=== PATIENT | male | born 1960 | race Caucasian/White ===

== ENCOUNTER 2017-08-09 21:46 | Inpatient (IN) | payer MEDICAID, SELFPAY | END 2017-08-14 18:00 | disposition home or self-care (01) | DRG 809 | PROVIDERS: Admitting Provider Internal Medicine; Emergency Provider Emergency Medicine; Family Provider Family Medicine; PCP Family Medicine; Visit Provider Internal Medicine | DX: D70.9 Neutropenia, unspecified (principal); C78.6 Secondary malignant neoplasm of retroperitoneum and peritoneum; E22.2 Syndrome of inappropriate secretion of antidiuretic hormone; D69.59 Other secondary thrombocytopenia; D64.81 Anemia due to antineoplastic chemotherapy; C62.92 Malignant neoplasm of left testis, unspecified whether descended or undescended; G89.3 Neoplasm related pain (acute) (chronic); R50.81 Fever presenting with conditions classified elsewhere; T45.1X5A Adverse effect of antineoplastic and immunosuppressive drugs, initial encounter; K70.30 Alcoholic cirrhosis of liver without ascites; K59.00 Constipation, unspecified; B35.6 Tinea cruris; R21 Rash and other nonspecific skin eruption; B00.9 Herpesviral infection, unspecified | CPT/HCPCS: 36415; 36430; 36591; 71020; 71046; 80048; 80202; 81001; 83605; 85025; 86850; 86900; 86901; 86920; 86922; 87040; 87086; 87400; 96372; 99058; 99284; P9016; J0692; J2405; J3370; Q5101 ==

== ENCOUNTER → 2017-09-03 12:26 | Outpatient (CLI) | payer OTHER, MEDICAID, SELFPAY ==
[2017-08-26 11:22] VITALS: TEMP 36.4
--- NOTE | 2017-09-03 | DI.MRI.S_ITS ---
PROCEDURE: MR HEAD/BRAIN WO/W CON INDICATIONS: TESTICULAR CA TECHNIQUE: Noncontrast axial T1 spin echo, axial T2 fast spin echo, sagittal and axial FLAIR, coronal T2 fast spin echo, axial gradient echo, axial diffusion and ADC through the brain. After the administration of contrast, axial and coronal 3D VIBE or T1 spin echo with fat saturation through the brain. COMPARISON: [facility], CT, HEAD WITH CONTRAST, 03/31/2017, 14:50. FINDINGS: Image quality: Excellent. CSF Spaces: Basal cisterns are patent. No extra-axial fluid collections. Ventricles are normal in size and shape. Brain: No midline shift. No intracranial bleeds or masses. No abnormal intracranial enhancement. The brainstem appears normal. Diffusion-weighted images demonstrate no acute ischemic insults. No chronic ischemic insults. Normal intravascular flow voids are present. On the prior CT dated 03/31/17, there is a hyperdense focus seen embedded within the right orbital roof medially. On the current study, there is focal susceptibility artifact seen within this region, as on series 9 image 14. Skull and face: Calvarial marrow is normal in signal. Orbits appear normal. Sinuses: Susceptibility artifact can be seen along the posterior aspect of the right maxillary sinus, where there is postoperative metallic hardware seen on the prior CT. Sinuses and mastoids appear clear. IMPRESSION: No masses or abnormal enhancement can be seen. Metallic foreign bodies seen embedded along the right orbital roof medially, as well as along the posterior right maxillary sinus. Dictated by: Jason Badillo M.D. on 09/03/2017 at 13:56 Approved by: Jason Badillo M.D. on 09/03/2017 at 14:09
--- NOTE | 2017-09-03 12:44 | DI.CT.S_ITS ---
PROCEDURE: CT CHEST ABD PEL W CON INDICATIONS: TESTICULAR CANCER TECHNIQUE: After the administration of oral and intravenous contrast, 5 mm thick sections acquired from the lung apices to the symphysis. 5 mm coronal and sagittal reformats were performed, with additional 7 mm coronal MIP reformats through the lungs. For radiation dose reduction, the following was used: automated exposure control, adjustment of mA and/or kV according to patient size. COMPARISON: [facility], CT, CHEST/ABDOMEN WITH CONTRAST, 05/23/2017, 12:59. [facility], CT, CHEST/ABD/PEL WITH CONTRAST, 03/25/2017, 15:21. [facility], CT, CHEST/ABD/PEL WITH CONTRAST, 03/10/2017, 15:16. [facility], CT, CHEST/ABD/PEL WITH CONTRAST, 02/04/2016, 21:58. FINDINGS: Image quality: Excellent. CHEST: Lungs and pleura: No acute airspace opacities. There is nonspecific bilateral mild posterior linear scarring within the lung parenchyma. No pleural effusions or pneumothorax. Central and peripheral airways appear patent and normal in caliber. Mediastinum: Heart size is normal. No pericardial effusion. No new mediastinal or hilar adenopathy by size criteria. An area of soft tissue prominence in the left paraspinous soft tissues, posterior to the descending thoracic aorta at the SC level of the aortic root is again seen. This has further diminished in size sequentially over several prior CT scans that included this area, and now measures only approximately 3.1 cm AP and 2.4 cm transverse, with a lesser degree of convex to the to the curvature of the paraspinous pleural margin, when compared to the most recent CT scanning from 05/23/17. Thoracic aorta and central pulmonary arteries are normal in size. Esophagus is normal in caliber. No hiatal hernia. Chest wall: No axillary or supraclavicular adenopathy by size criteria. Thyroid gland appears normal where well visualized. ABDOMEN: Solid organs: Liver is normal in size and enhancement but the liver shows hepatic nodularity along it's capsular border consistent with underlying cirrhosis and the spleen is globally moderately enlarged.. Gallbladder appears contracted, containing several calcified small gallstones. Biliary system is non dilated. Pancreas enhances normally. Spleen is normal in size and enhancement. No adrenal nodules. Kidneys demonstrate normal size and enhancement, without hydronephrosis. Peritoneum and bowel: Bowel loops demonstrate normal wall thickness and caliber. No free fluid or air. Nodes and vessels: No retroperitoneal or mesenteric adenopathy by size criteria. Aorta and inferior vena cava are normal in size. Miscellaneous: No ventral hernias. PELVIS: Genitourinary: Bladder wall thickness is normal. Miscellaneous: No inguinal hernias or adenopathy. Bones: No suspicious bony lesions. No vertebral body compression fractures. IMPRESSION: 1. Sequential improvement in left paraspinous confluent metastatic disease over the several recent prior CT scans, located at the mid chest level, where the size and convex to the of the soft tissue mass present in that area has diminished over time and now measures only approximately 3.1 x 2.4 cm. 2. The gallbladder is contracted, multiple small internal partially calcified gallstones are again seen. 3. Hepatic nodular margination consistent with underlying cirrhosis. Moderate splenomegaly. No ascites. Dictated by: Ajit York M.D. on 09/03/2017 at 15:48 Approved by: Ajit York M.D. on 09/03/2017 at 15:56
--- NOTE | 2017-09-04 12:46 | ONC.NAV ---
Description: Updated POLST Activity: Met with pt to update his POLST form with a current [facility] provider. Pt indicates his continued preference as DNR. Dr. Barragan signed POLST, will update in pt's resuscitation status.
--- NOTE | 2018-02-04 15:00 | ONC.NAV ---
Description: Letter for Travel Activity: Pt's cg, Gianna, called and requested a letter for pt to take with him on his upcoming flight to [place], validating his need for narcotic prescriptions that he will have on his person while travelling. Compiled the letter, and notified Gianna that they could pickling solution maker this letter on Friday when they are in our clinic next. No further needs identified at this time.
== END ==
PROVIDERS: Family Provider Family Medicine; PCP Family Medicine; Visit Provider Internal Medicine Hematology & Oncology
DX: C62.90 Malignant neoplasm of unspecified testis, unspecified whether descended or undescended (principal)
CPT/HCPCS: 70553; 71260; 74177; A9579; Q9967

== ENCOUNTER 2017-11-29 22:43 | Emergency (ER) | payer OTHER, MEDICAID, SELFPAY ==
[2017-11-29 22:49] VITALS: BP 125/66; PULSE 76; RESP 18; TEMP 39.5; O2SAT 97; BMI 23.7
--- NOTE | 2017-11-29 23:10 | DI.RAD.S_ITS ---
PROCEDURE: XR CHEST 1V INDICATIONS: fever TECHNIQUE: One view of the chest was acquired. COMPARISON: [facility], CHEST 2 VIEW, 08/09/2017, 21:38. [facility], CHEST 2 VIEW, 07/12/2017, 20:41. [facility], CHEST 1 VIEW, 07/08/2017, 22:57. [facility], CHEST 1 VIEW, 06/30/2017, 9:42. FINDINGS: Surgical changes and devices: None. Lungs and pleura: No pleural effusions or pneumothorax. Lungs are clear. Mediastinum: Mediastinal contours appear normal. Heart size is normal. Bones and chest wall: Healed old left rib fractures. Overlying soft tissues appear unremarkable. IMPRESSION: No acute cardiopulmonary disease. Dictated by: Max Hood M.D. on 11/30/2017 at 8:18 Approved by: Max Hood M.D. on 11/30/2017 at 8:19
[2017-11-29 23:16] LABS: Bacteria Urine None Seen; RBC Urine None Seen (0-5/HPF); WBC Urine None Seen (0-5/HPF)
[2017-11-29 23:23] VITALS: TEMP 39.5
[2017-11-29] MEDS: KETOROLAC 60 MG/2 ML VIAL 15 MG IV (23:23)
--- NOTE | 2017-11-29 23:25 | ED.FEVER ---
HPI - Fever General Chief Complaint: Fever Stated Complaint: HIGH FEVER Time Seen by Provider: 11/29/17 22:55 Source: patient and family Mode of arrival: ambulatory Limitations: no limitations History of Present Illness HPI Narrative: Patient is a 57-year-old male who presents with fever. 3 days ago he had oral surgery where he had his mandible scraped. All of his teeth have been removed he said both his upper and lower jaw has been scraped. He does have some minor bruising and pain. He does not feel like pain is any worse. He is currently taking amoxicillin and has been. Today his noticed that he was feeling warm he has a fever of 103 in the ED. He has no specific complaints. No cough chest pain or shortness of breath. No painful or frequent urination. He has no abdominal pain nausea vomiting or diarrhea. He does have a history of alcoholic cirrhosis he has been sober for 2 years, he also has a history of testicular cancer. They have stopped chemo treatments for the past few months so he could have his teeth worked on. He also has a history of rheumatoid arthritis and medication for that has been stopped as well. MD complaint: fever Related Data Home Medications Medication Instructions Recorded Confirmed hydromorphone [Dilaudid] 2 mg PO Q2-4H PRN 09/09/17 10/10/17 Previous Rx's Medication Instructions Recorded fentanyl 1 patch TOPICAL Q72H #10 patch 10/10/17 levofloxacin 750 mg PO DAILY #5 tab 11/30/17 Allergies Allergy/AdvReac Type Severity Reaction Status Date / Time No Known Drug Allergies Allergy Verified 10/10/17 09:41 Review of Systems Review of Systems All systems reviewed & are unremarkable except as noted in HPI and below Constitutional Reports body ache(s), Reports fever(s), Denies headache(s) and Reports malaise Eyes Denies blurry vision, Denies decreased night vision and Denies diplopia ENT Ears, Nose, Mouth, and Throat: Reports as per HPI, Denies vertigo, Denies dizziness, Denies headache(s), Reports mouth pain, Denies sore throat and Denies throat swelling Cardiovascular Denies chest pain, Denies irregular heart rhythm, Denies lightheadedness, Denies palpitations, Denies dyspnea, Denies dyspnea on exertion and Denies orthopnea Respiratory Denies cough, Denies dyspnea, Denies dyspnea on exertion and Denies wheezing Gastrointestinal Gastrointestinal: Denies abdominal pain, Denies change in bowel habits, Denies diarrhea, Denies nausea and Denies vomiting Musculoskeletal Denies back pain, Denies muscle weakness, Denies numbness and Denies tingling Integumentary/Breasts Denies pruritus, Denies erythema, Denies rash and Denies wounds Neurologic Denies vertigo, Denies dizziness, Denies headache(s), Denies numbness and Denies tingling Endocrine Denies palpitations Allergic/Immunologic Denies throat swelling and Denies wheezing [facility] Medical History Testicular cancer (Acute Unknown) Cirrhosis (Chronic Unknown) Psoriasis (Chronic Unknown) Psoriatic arthritis (Chronic Unknown) 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) UGI bleed (Resolved Unknown) Surgical History S/P orchiectomy (Resolved 04/2016) Social History Smoking Status: Never smoker alcohol intake: former Exam Initial Vital Signs Initial Vital Signs: Vital Signs Temperature 103.1 F H 11/29/17 22:49 Pulse Rate 76 11/29/17 22:49 Respiratory Rate 18 11/29/17 22:49 Blood Pressure 125/66 H 11/29/17 22:49 Pulse Oximetry 97 11/29/17 22:49 Const General: cooperative Nutritional Appearance: average body habitus Orientation: alert, awake and oriented x3 HENMT Mouth: moist mucous membranes, No muffled voice and other (Mild swelling all left side no teeth are present all incision sites appear clean no gross pus sutures noted some contusions) Eyes General: appearance normal, both eyes and all related structures Neck Neck: normal visual inspection, full ROM and no meningeal signs Chest Chest: normal inspection of the chest Resp Auscultation: clear to auscultation bilaterally, no rales, no rhonchi and no wheezes Cardio Rate: regular rate Rhythm: regular rhythm Heart Sounds: no click, no gallops, no murmurs and no rubs Pulses: normal peripheral pulses GI Inspection: non-distended Palpation: soft, no hepatosplenomegaly, No guarding, No pulsatile mass and No tender Auscultation: normal bowel sounds Back/Spine/Pelvis Back: No CVA tenderness Cervical Spine: cervical ROM normal and No pain with cervical ROM Thoracic/Lumbar Spine: thoracic and lumbar spine normal to inspection Neuro General: alert, awake, oriented x3, gait normal and no focal motor deficits Speech: speech normal Extrem General: full ROM, no clubbing, cyanosis or edema, no pedal edema and no calf tenderness Course Orders Ordered: ED Orders 11/29/17 23:03 C-Reactive Protein Quant Stat Complete Blood Count AUTO DIFF Stat Comprehensive Metabolic Panel Stat Erythrocyte Sedimentation Rate Stat Lactate (Lactic Acid) Stat Partial Thromboplastin Time Stat Procalcitonin Stat Prothrombin Time INR Stat 11/29/17 23:05 Urinalysis and Microscopic Stat 11/29/17 23:10 XR chest 1V Stat 11/29/17 23:38 Blood Culture Stat 11/30/17 00:09 CT facial bones w con Stat Discontinued Medications Sodium Chloride (Normal Saline 0.9%) 1,000 mls @ 1,000 mls/hr IV BOLUS ONE Stop: 11/30/17 00:42 Last Infusion: 11/30/17 00:15 Dose: 0 mls/hr Admin: 11/29/17 23:35 Dose: 1,000 mls/hr Ketorolac Tromethamine (Toradol) 15 mg IV NOW ONE Stop: 11/29/17 23:10 Last Admin: 11/29/17 23:23 Dose: 15 mg Levofloxacin (Levaquin) 750 mg PO NOW ONE Stop: 11/30/17 01:15 Last Admin: 11/30/17 01:19 Dose: 750 mg Vital Signs - 8 hr 11/29/17 22:49 11/29/17 23:23 11/30/17 00:15 Temperature 103.1 F H 103.1 F H 100.0 F H Pulse Rate 76 Respiratory Rate 18 Blood Pressure 125/66 H Blood Pressure [Left Arm] Pulse Oximetry 97 11/30/17 00:54 11/30/17 01:39 Temperature 99.1 F 99.4 F Pulse Rate 58 L 49 L Respiratory Rate 18 Blood Pressure 103/52 L Blood Pressure [Left Arm] 107/59 L Pulse Oximetry 95 99 MDM - Fever Medical Records Attestation: I reviewed the patient's medical records. Lab Data Attestation: I reviewed the patient's lab results. Result diagrams: 11/29/17 23:03 11/29/17 23:03 Lab Results 0811/29/17 11/29/17 Range/Units 23:03 23:03 23:03 WBC (4.5-11.0) X10^3/uL RBC (4.5-5.9) X10^6/uL Hgb (13.5-17.5) g/dL Hct (41-53) % MCV (80-100) fL MCH (26-34) PG MCHC (30-36) % RDW (11.6-14.8) % Plt Count (150-400) X10^3/uL Neut % (Auto) (50-75) % Lymph % (Auto) (25-40) % [place] % (Auto) (3-14) % Eos % (Auto) (2-4) % Baso % (Auto) (0-2) % Neut # (Auto) (6881-4190) /uL ESR 52 H (0-15) MM/HR PT 17.2 H (10.1-12.7) SECONDS INR 1.6 H (0.9-1.3) APTT 34 D (26.4-36.2) SECONDS Sodium 133 L (137-145) mmol/L Potassium 3.8 (3.4-5.1) mmol/L Chloride 94 L (98-107) mmol/L Carbon Dioxide 30 (22-32) mmol/L BUN 9 (9-20) mg/dL Creatinine 0.70 (0.66-1.25) mg/dL Estimated GFR > 60.0 (>60) mL/min BUN/Creatinine Ratio 12.9 (6-22) Glucose 101 H (70-100) mg/dL Lactate (0.7-2.1) mmol/L Calcium 9.0 (8.4-10.2) mg/dL Total Bilirubin 0.7 (0.2-1.3) mg/dL AST 15 L (17-59) IU/L ALT 17 L (21-72) IU/L Alkaline Phosphatase 60 (38-126) U/L C-Reactive Protein 1.5 H (<1.0) mg/dL Total Protein 7.0 (6.3-8.2) g/dL Albumin 3.8 (3.5-5.0) g/dL Globulin 3.2 (1.7-4.1) g/dL Albumin/Globulin Ratio 1.2 (1.0-2.8) Procalcitonin (<0.5) ng/mL Urine Color Urine Appearance Urine pH (4.5-8.0) Ur Specific Wanda (1.000-1.035) Urine Protein (Negative) Urine Glucose (UA) (Normal) g/dL Urine Ketones (NEGATIVE) Urine Occult Blood (Negative) Urine Nitrate (Negative) Urine Bilirubin (NEGATIVE) Urine Urobilinogen (0.2) E.U./dL Ur Leukocyte Esterase (NEGATIVE) Urine RBC (0-5/HPF) Urine WBC (0-5/HPF) Urine Bacteria (None) Ur Culture Indicated? Micro UA Comment 11/29/17 11/29/17 11/29/17 Range/Units 23:03 23:03 23:03 WBC 5.1 (4.5-11.0) X10^3/uL RBC 3.25 L (4.5-5.9) X10^6/uL Hgb 10.2 L (13.5-17.5) g/dL Hct 29.3 L (41-53) % MCV 90.0 (80-100) fL MCH 31.2 (26-34) PG MCHC 34.7 (30-36) % RDW 13.3 (11.6-14.8) % Plt Count 89 L (150-400) X10^3/uL Neut % (Auto) 57.7 (50-75) % Lymph % (Auto) 25.1 (25-40) % [place] % (Auto) 16.5 H (3-14) % Eos % (Auto) 0.3 L (2-4) % Baso % (Auto) 0.4 (0-2) % Neut # (Auto) 2900 L (6983-1878) /uL ESR (0-15) MM/HR PT (10.1-12.7) SECONDS INR (0.9-1.3) APTT (26.4-36.2) SECONDS Sodium (137-145) mmol/L Potassium (3.4-5.1) mmol/L Chloride (98-107) mmol/L Carbon Dioxide (22-32) mmol/L BUN (9-20) mg/dL Creatinine (0.66-1.25) mg/dL Estimated GFR (>60) mL/min BUN/Creatinine Ratio (6-22) Glucose (70-100) mg/dL Lactate 1.3 (0.7-2.1) mmol/L Calcium (8.4-10.2) mg/dL Total Bilirubin (0.2-1.3) mg/dL AST (17-59) IU/L ALT (21-72) IU/L Alkaline Phosphatase (38-126) U/L C-Reactive Protein (<1.0) mg/dL Total Protein (6.3-8.2) g/dL Albumin (3.5-5.0) g/dL Globulin (1.7-4.1) g/dL Albumin/Globulin Ratio (1.0-2.8) Procalcitonin 0.07 (<0.5) ng/mL Urine Color Urine Appearance Urine pH (4.5-8.0) Ur Specific Wanda (1.000-1.035) Urine Protein (Negative) Urine Glucose (UA) (Normal) g/dL Urine Ketones (NEGATIVE) Urine Occult Blood (Negative) Urine Nitrate (Negative) Urine Bilirubin (NEGATIVE) Urine Urobilinogen (0.2) E.U./dL Ur Leukocyte Esterase (NEGATIVE) Urine RBC (0-5/HPF) Urine WBC (0-5/HPF) Urine Bacteria (None) Ur Culture Indicated? Micro UA Comment 11/29/17 Range/Units 23:05 WBC (4.5-11.0) X10^3/uL RBC (4.5-5.9) X10^6/uL Hgb (13.5-17.5) g/dL Hct (41-53) % MCV (80-100) fL MCH (26-34) PG MCHC (30-36) % RDW (11.6-14.8) % Plt Count (150-400) X10^3/uL Neut % (Auto) (50-75) % Lymph % (Auto) (25-40) % [place] % (Auto) (3-14) % Eos % (Auto) (2-4) % Baso % (Auto) (0-2) % Neut # (Auto) (0843-7168) /uL ESR (0-15) MM/HR PT (10.1-12.7) SECONDS INR (0.9-1.3) APTT (26.4-36.2) SECONDS Sodium (137-145) mmol/L Potassium (3.4-5.1) mmol/L Chloride (98-107) mmol/L Carbon Dioxide (22-32) mmol/L BUN (9-20) mg/dL Creatinine (0.66-1.25) mg/dL Estimated GFR (>60) mL/min BUN/Creatinine Ratio (6-22) Glucose (70-100) mg/dL Lactate (0.7-2.1) mmol/L Calcium (8.4-10.2) mg/dL Total Bilirubin (0.2-1.3) mg/dL AST (17-59) IU/L ALT (21-72) IU/L Alkaline Phosphatase (38-126) U/L C-Reactive Protein (<1.0) mg/dL Total Protein (6.3-8.2) g/dL Albumin (3.5-5.0) g/dL Globulin (1.7-4.1) g/dL Albumin/Globulin Ratio (1.0-2.8) Procalcitonin (<0.5) ng/mL Urine Color Yellow Urine Appearance Clear Urine pH 7.5 (4.5-8.0) Ur Specific Wanda 1.010 (1.000-1.035) Urine Protein Negative (Negative) Urine Glucose (UA) Negative (Normal) g/dL Urine Ketones Negative (NEGATIVE) Urine Occult Blood Negative (Negative) Urine Nitrate Negative (Negative) Urine Bilirubin Negative (NEGATIVE) Urine Urobilinogen 1.0 (0.2) E.U./dL Ur Leukocyte Esterase Negative (NEGATIVE) Urine RBC None seen (0-5/HPF) Urine WBC None seen (0-5/HPF) Urine Bacteria None seen (None) Ur Culture Indicated? Cult not indicated Micro UA Comment Not Reportable Imaging Data Chest x-ray: Attestation: I personally reviewed and interpreted this imaging study as follows: My impression: No acute cardiopulmonary process Facial CT:: Radiologist's impression: engraver copperplate report: Left facial swelling without definite evidence of abscess. And then she will lists with multiple defects including a large defect at the left upper extend into maxillary sinus with left maxillary sinus opacification which may be related to recent surgery MDM Narrative Medical decision making narrative: Overall patient does not appear toxic or septic. Fever is better after Toradol. He says he can't take Tylenol due to the cirrhosis. He has no airway compromise. He is not neutropenic despite multiple risk factors. At this time will change of his antibiotic to Levaquin he has mildly elevated ESR which may be inflammatory. He does not have any further follow-up with the oral surgeon as however he has appointment sometime next week with the another dentist. Discharge Plan Departure Patient Disposition: Home, Self-Care Clinical Impression: [id number] Discharge Date/Time: 11/30/17 01:40 Interventions: ED Discharge Assessment Last Done: 11/30/17 01:39 Instructions: DI for Fever (Symptom) -- Adult Activity Restrictions/Additional Instructions: *You have been diagnosed with fever *What to do: No clear source of infection at this time. *Continue to take medications as directed Stop taking current antibiotic, amoxicillin -start taking Levaquin once a day for the next 5 days-faxed to [facility] in [place] *Follow up with your primary care provider in 2-3 days, follow up with oral surgeon next week *Return to ER if you should have persistent ongoing fever, worsening pain or swelling or any new, worsening or concerning symptoms Prescriptions: New levofloxacin 750 mg tablet 750 mg PO DAILY Qty: 5 RF: 0 No Action hydromorphone [Dilaudid] 2 MG tablet 2 mg PO Q2-4H PRN (Reason: Pain (Scale Score 4-6)) RF: 0 fentanyl 50 MCG/HR patch 72 hour 1 patch Topical Q72H Qty: 10 RF: 0 Referrals: Shani White DO [Primary Care Provider] -
[2017-11-29 23:26] LABS: Add Manual Diff / Slide Review NO; Basophils Percent Auto 0.4 % (0-2); Eosinophils Percent Auto 0.3 % (2-4); Hematocrit 29.3 % (41-53); Hemoglobin 10.2 g/dL (13.5-17.5); Lymphocytes Percent Auto 25.1 % (25-40); Mean Corpuscular HGB Conc 34.7 % (30-36); Mean Corpuscular Hemoglobin 31.2 PG (26-34); Monocytes Percent Auto 16.5 % (3-14); Neutrophils Absolute Auto 2900 /uL (3000-5900); Neutrophils Percent Auto 57.7 % (50-75); Platelet Count 89 X10^3/uL (150-400); Red Blood Cell Count 3.25 X10^6/uL (4.5-5.9); Red Cell Distribution Width 13.3 % (11.6-14.8); White Blood Cell Count 5.1 X10^3/uL (4.5-11.0)
[2017-11-29] MEDS: SODIUM CHLORIDE 0.9% 1,000 ML 1000 ML IV (23:35)
[2017-11-29 23:36] LABS: INR 1.6 (0.9-1.3); Prothrombin Time 17.2 SECONDS (10.1-12.7)
[2017-11-29 23:36] LABS: Appearance Urine UA CLEAR; Bilirubin Urine UA NEGATIVE (NEGATIVE); Color Urine UA YELLOW; Glucose Urine UA NEGATIVE (Normal); Ketones Urine UA NEGATIVE (NEGATIVE); Leukocyte Esterase Urine UA NEGATIVE (NEGATIVE); Nitrite Urine UA Negative (Negative); Occult Blood Urine UA NEGATIVE (Negative); Protein Urine UA NEGATIVE (Negative); pH Urine UA 7.5 (4.5-8.0)
[2017-11-29 23:37] LABS: Lactate (Lactic Acid) 1.3 mmol/L (0.7-2.1)
[2017-11-29 23:38] LABS: PTT Partial Thromboplastin Tim 34 SECONDS (26.4-36.2)
[2017-11-29 23:42] LABS: Culture Indicated Urine Cult Not Indicated
[2017-11-29 23:45] LABS: Alanine Aminotransferase 17 IU/L (21-72); Albumin 3.8 g/dL (3.5-5.0); Albumin Globulin Ratio 1.2 (1.0-2.8); Alkaline Phosphatase 60 U/L (38-126); Aspartate Aminotransferase 15 IU/L (17-59); BUN Creatinine Ratio 12.9 (6-22); Bilirubin Total 0.7 mg/dL (0.2-1.3); Blood Urea Nitrogen 9 mg/dL (9-20); C-Reactive Protein Quant 1.5 mg/dL (<1.0); Carbon Dioxide 30 mmol/L (22-32); Chloride 94 mmol/L (98-107); Estimated Glomerular Filt Rate > 60.0 mL/min (>60); Globulin 3.2 g/dL (1.7-4.1); Glucose 101 mg/dL (70-100); HEMOLYSIS < 15 (0-50); Potassium 3.8 mmol/L (3.4-5.1); Sodium 133 mmol/L (137-145)
[2017-11-29 23:54] LABS: Erythrocyte Sedimentation Rate 52 MM/HR (0-15)
[2017-11-30 00:06] LABS: Procalcitonin 0.07 ng/mL (<0.5)
--- NOTE | 2017-11-30 00:09 | DI.CT.S_ITS ---
PROCEDURE: CT FACIAL BONES W CON INDICATIONS: fever, recent oral surgery left facial swelling TECHNIQUE: After the administration of intravenous contrast, 2.5 mm axial sections acquired from the mid-neck to the frontal sinuses, with coronal and sagittal reformats. For radiation dose reduction, the following was used: automated exposure control, adjustment of mA and/or kV according to patient size. COMPARISON: [facility], CT, CT CHEST ABD PEL W CON, 09/03/2017, 14:33. [facility], CT, CHEST/ABDOMEN WITH CONTRAST, 05/23/2017, 12:59. [facility], CT, ABDOMEN/PELVIS WITH CONTRAST, 04/17/2017, 22:45. [facility], CT, HEAD WITH CONTRAST, 03/31/2017, 14:50. FINDINGS: Image quality: Excellent. Soft tissues: There is extensive soft tissue swelling and soft tissue edema overlying the left malar and mandibular regions. No focal fluid collection consistent with a drainable abscess. Prominent lymph nodes noted. There is calcified plaque of the bilateral carotid artery bifurcations. Bones: Patient is edentulous with multiple cortical bone defects of the oral cavity, including a large left maxillary defect involving the upper left maxillary teeth and extending through the inferior left maxillary sinus. Sinuses: The left maxillary sinus is partially opacified with an air-fluid level and high attenuation material. IMPRESSION: #1. Left facial swelling without drainable abscess. #2. Large left maxillary bone cortical defect involving the left upper teeth through the left maxillary sinus with opacification of the left maxillary sinus by high attenuation material and an air-fluid level. This may represent postsurgical change with hemorrhage or packing material in the maxillary sinus versus infection and sinusitis with cortical erosions. Recommend clinical correlation, follow-up with the patient's dental provider, and consider followup CT of the face. These results and recommendations were rediscussed with [facility] Emergency Physician Dr. Elijah Newberry at 8:34am on 11/30/[address] Hood by telephone. This is concordant with the overnight night court magistrate radiology report by Dr. Leigh Ann Gonzalez. Dictated by: Max Hood M.D. on 11/30/2017 at 8:22 Approved by: Max Hood M.D. on 11/30/2017 at 8:36
[2017-11-30 00:15] VITALS: TEMP 37.8
[2017-11-30 00:54] VITALS: BP 107/59; PULSE 58; TEMP 37.3; O2SAT 95
[2017-11-30] MEDS: levoFLOXacin 250 MG TABLET 750 MG PO (01:19)
[2017-11-30 01:39] VITALS: BP 103/52; PULSE 49; RESP 18; TEMP 37.4; O2SAT 99
== END 2017-11-30 01:40 | disposition home or self-care (01) ==
PROVIDERS: Emergency Provider Emergency Medicine; Family Provider Family Medicine; PCP Family Medicine
DX: K08.89 Other specified disorders of teeth and supporting structures (principal); R50.9 Fever, unspecified
CPT/HCPCS: 36415; 36591; 70487; 71045; 80053; 81001; 81003; 83605; 84145; 85025; 85610; 85651; 85730; 86140; 87040; 96361; 96374; 99283; 99285; J1885; Q9967

== ENCOUNTER → 2018-01-05 09:52 | Outpatient (CLI) | payer OTHER, MEDICAID, SELFPAY ==
--- NOTE | 2018-01-05 | DI.CT.S_ITS ---
PROCEDURE: CT CHEST ABD PEL W CON INDICATIONS: TESTICULAR CANCER TECHNIQUE: After the administration of oral and intravenous contrast, 5 mm thick sections acquired from the lung apices to the symphysis. 5 mm coronal and sagittal reformats were performed, with additional 7 mm coronal MIP reformats through the lungs. For radiation dose reduction, the following was used: automated exposure control, adjustment of mA and/or kV according to patient size. COMPARISON: [facility], CT, CHEST/ABD/PEL WITH CONTRAST, 02/04/2016, 21:58. [facility], CT, ABDOMEN/PELVIS WITH CONTRAST, 07/22/2016, 15:32. [facility], CT, ABDOMEN/PELVIS WITH CONTRAST, 10/14/2016, 13:20. [facility], CT, CHEST/ABD/PEL WITH CONTRAST, 03/10/2017, 15:16. [facility], CT, CHEST/ABDOMEN WITH CONTRAST, 05/23/2017, 12:59. [facility], CT, CT CHEST ABD PEL W CON, 09/03/2017, 14:33. FINDINGS: Image quality: Diagnostic CHEST: Lungs and pleura: No acute airspace opacities. No pleural effusions or pneumothorax. Central and peripheral airways appear patent and normal in caliber. Mediastinum: Adjacent to the descending thoracic aorta, there is an area of abnormal soft tissue seen, which measures 2.5 cm AP by 1.9 cm transversely. This continues to decrease in size over time. Heart size is normal. Coronary artery calcifications are seen. No pericardial effusion. No mediastinal or hilar adenopathy by size criteria. Thoracic aorta and central pulmonary arteries are normal in size. Esophagus is normal in caliber. No hiatal hernia. Chest wall: No axillary or supraclavicular adenopathy by size criteria. Thyroid gland demonstrates no significant CT abnormality. A relatively prominent amount of breast tissue development can be seen, which is similar to the prior examination. Remote posterior left rib fractures are seen. ABDOMEN: Solid organs: The liver demonstrates normal size. The liver demonstrates heterogeneity, with a nodular contour. Gallbladder demonstrates layering gallstones. Biliary system is non dilated. Pancreas enhances normally. Spleen is enlarged, measuring 17 cm craniocaudally. No adrenal nodules. Kidneys demonstrate normal size and enhancement, without hydronephrosis. Peritoneum and bowel: Bowel loops demonstrate normal wall thickness and caliber. No free fluid or air. Atherosclerotic calcification is noted. Diverticulosis is seen, without findings of active diverticulitis. Nodes and vessels: No retroperitoneal or mesenteric adenopathy by size criteria. Aorta and inferior vena cava are normal in size. Miscellaneous: No ventral hernias. PELVIS: Genitourinary: Bladder wall thickness is normal. Findings of prior left orchiectomy are seen, with absence of the left spermatic cord. Miscellaneous: No inguinal hernias or adenopathy. Bones: No suspicious bony lesions. No vertebral body compression fractures. Degenerative changes are seen throughout. IMPRESSION: Continued decrease in size of the abnormal soft tissue adjacent to the descending thoracic aorta, which is consistent with resolving metastatic disease. Prior left orchiectomy changes. Nodular appearance of the liver. Please correlate with potential clinical cirrhosis. Splenomegaly. Incidental note is made of: Remote left posterior rib fractures Relatively prominent gynecomastia Coronary artery calcifications Gallstones Diverticulosis is seen, without findings of active diverticulitis. Bony degenerative changes Dictated by: Jason Badillo M.D. on 01/05/2018 at 11:28 Approved by: Jason Badillo M.D. on 01/05/2018 at 11:38
[2018-01-05 10:14] LABS: Add Manual Diff / Slide Review NO; Basophils Percent Auto 0.6 % (0-2); Hematocrit 31.6 % (41-53); Hemoglobin 10.8 g/dL (13.5-17.5); Lymphocytes Percent Auto 24.7 % (25-40); Mean Corpuscular HGB Conc 34.3 % (30-36); Mean Corpuscular Hemoglobin 30.3 PG (26-34); Mean Corpuscular Volume 88.5 fL (80-100); Monocytes Percent Auto 9.6 % (3-14); Neutrophils Absolute Auto 3700 /uL (3000-5900); Neutrophils Percent Auto 63.1 % (50-75); Platelet Count 117 X10^3/uL (150-400); Red Blood Cell Count 3.57 X10^6/uL (4.5-5.9); Red Cell Distribution Width 14.1 % (11.6-14.8); White Blood Cell Count 5.9 X10^3/uL (4.5-11.0)
[2018-01-05 10:35] LABS: Alanine Aminotransferase 18 IU/L (21-72); Albumin Globulin Ratio 1.1 (1.0-2.8); Alkaline Phosphatase 82 U/L (38-126); Aspartate Aminotransferase 19 IU/L (17-59); BUN Creatinine Ratio 8.3 (6-22); Bilirubin Total 0.7 mg/dL (0.2-1.3); Blood Urea Nitrogen 5 mg/dL (9-20); Calcium 9.8 mg/dL (8.4-10.2); Carbon Dioxide 30 mmol/L (22-32); Chloride 101 mmol/L (98-107); Estimated Glomerular Filt Rate > 60.0 mL/min (>60); Globulin 3.7 g/dL (1.7-4.1); Glucose 105 mg/dL (70-100); HEMOLYSIS < 15 (0-50); Potassium 4.2 mmol/L (3.4-5.1); Sodium 139 mmol/L (137-145); Total Protein 7.7 g/dL (6.3-8.2)
[2018-01-05 10:43] LABS: Lactate Dehydrogenase 333 U/L (313-618)
[2018-01-05 10:52] LABS: HCG Quantitative /Beta subunit < 2.39 mIU/mL (-2.40)
[2018-01-08 13:51] LABS: Alpha Fetoprotein 7.9 ng/mL (< 6.1)
== END ==
PROVIDERS: Internal Medicine Hematology & Oncology; Family Provider Family Medicine; PCP Family Medicine; Visit Provider Nurse Practitioner Gerontology
DX: C62.92 Malignant neoplasm of left testis, unspecified whether descended or undescended (principal); K70.30 Alcoholic cirrhosis of liver without ascites
CPT/HCPCS: 36415; 71260; 74177; 80053; 82105; 83615; 84702; 85025

== ENCOUNTER → 2018-01-26 11:10 | Outpatient (CLI) | payer OTHER, MEDICAID, SELFPAY ==
--- NOTE | 2018-01-26 | DI.US.S_ITS ---
PROCEDURE: US ABDOMEN LIMITED INDICATIONS: ALCOHOLIC CIRRHOSIS TECHNIQUE: Real-time focused scanning was performed of the abdomen, with image documentation. COMPARISON: [facility], CT, CT CHEST ABD PEL W CON, 01/05/2018, 10:56. [facility], CT, ABDOMEN/PELVIS WITH CONTRAST, 04/17/2017, 22:45. FINDINGS: Coarse appearance of the hepatic parenchyma and there is scalloping of the hepatic capsule as was seen on prior imaging. No discrete liver masses seen. Multiple dependent gallstones and no gallbladder wall thickening. No biliary dilatation. Normal pancreas. Splenomegaly present with the spleen measuring 16.3 cm. IMPRESSION: 1. Cirrhotic hepatic morphology redemonstrated and no discrete liver mass is seen. 2. Cholelithiasis without acute cholecystitis. 3. Sonographic splenomegaly suggesting portal hypertension. Dictated by: Primo GRIFFIN Interpreted: Yanelis Muprhy MD on 01/26/2018 at 12:52 Approved by: Ashley Urena M.D. on 01/28/2018 at 14:52
== END ==
PROVIDERS: PCP Family Medicine; Visit Provider Internal Medicine Gastroenterology
DX: K70.30 Alcoholic cirrhosis of liver without ascites (principal); K80.20 Calculus of gallbladder without cholecystitis without obstruction; R16.1 Splenomegaly, not elsewhere classified
CPT/HCPCS: 76705

== ENCOUNTER → 2018-03-30 11:50 | Outpatient (CLI) | payer OTHER, MEDICAID, SELFPAY | PROVIDERS: PCP Family Medicine; Visit Provider Family Medicine | DX: N50.89 Other specified disorders of the male genital organs (principal) | CPT/HCPCS: 87255 ==

== ENCOUNTER → 2018-03-30 13:08 | Outpatient (CLI) | payer OTHER, MEDICAID, SELFPAY ==
--- NOTE | 2018-03-30 13:26 | DI.CT.S_ITS ---
PROCEDURE: CT CHEST ABD PEL W CON INDICATIONS: follow up, surveillance TECHNIQUE: After the administration of oral and intravenous contrast, 5 mm thick sections acquired from the lung apices to the symphysis. 5 mm coronal and sagittal reformats were performed, with additional 7 mm coronal MIP reformats through the lungs. For radiation dose reduction, the following was used: automated exposure control, adjustment of mA and/or kV according to patient size. COMPARISON: [facility], CT, CHEST/ABD/PEL WITH CONTRAST, 03/25/2017, 15:21. [facility], CT, CHEST/ABDOMEN WITH CONTRAST, 05/23/2017, 12:59. [facility], CT, CT CHEST ABD PEL W CON, 09/03/2017, 14:33. [facility], CT, CT CHEST ABD PEL W CON, 01/05/2018, 10:56. FINDINGS: Image quality: Excellent. CHEST: Lungs and pleura: No acute consolidation. Scattered subsegmental atelectasis and/or scarring No pleural effusions or pneumothorax. Central and peripheral airways appear patent and normal in caliber. Mediastinum: Heart size is normal. Coronary artery disease. No pericardial effusion. No mediastinal or hilar adenopathy by size criteria. Thoracic aorta and central pulmonary arteries are normal in size. There is redemonstration of para-aortic soft tissue presumably treated disease which is decreased in size. Esophagus is normal in caliber. No hiatal hernia. Chest wall: No axillary or supraclavicular adenopathy by size criteria. Thyroid gland negative. Bilateral gynecomastia. ABDOMEN: Solid organs: Cirrhosis of the liver. Incidental cholelithiasis.. Biliary system is non dilated. Pancreas enhances normally. Spleen is normal in size and enhancement. No adrenal nodules. Kidneys demonstrate normal size and enhancement, without hydronephrosis. Peritoneum and bowel: Bowel loops demonstrate normal wall thickness and caliber. No free fluid or air. Normal appendix Nodes and vessels: No retroperitoneal or mesenteric adenopathy by size criteria. Aorta and inferior vena cava are normal in size. Miscellaneous: No ventral hernias. PELVIS: Genitourinary: Unchanged circumferential bladder wall thickening Miscellaneous: No inguinal hernias or adenopathy. Bones: Left clavicle and several left rib fractures appear chronic. No vertebral body compression fractures. IMPRESSION: No evidence of active or progressive metastatic disease. Abnormal para-aortic soft tissue adjacent to the descending thoracic aorta, decreased since 05/23/17. Cirrhosis of liver. Cholelithiasis. Dictated by: Sumeet Alexis M.D. on 03/30/2018 at 15:52 Approved by: Sumeet Alexis M.D. on 03/30/2018 at 16:08
== END ==
PROVIDERS: PCP Family Medicine; Referring Provider Internal Medicine Hematology & Oncology; Visit Provider Internal Medicine Hematology & Oncology
DX: C62.90 Malignant neoplasm of unspecified testis, unspecified whether descended or undescended (principal); K74.60 Unspecified cirrhosis of liver; K80.20 Calculus of gallbladder without cholecystitis without obstruction
CPT/HCPCS: 71260; 74177; Q9967

== ENCOUNTER → 2018-06-22 09:52 | Outpatient (CLI) | payer OTHER, MEDICAID, SELFPAY ==
--- NOTE | 2018-06-22 | DI.US.S_ITS ---
PROCEDURE: US ABDOMEN LIMITED INDICATIONS: CIRRHOSIS TECHNIQUE: Real-time focused scanning was performed of the abdomen, with image documentation. COMPARISON: [facility], CT, CT CHEST ABD PEL W CON, 09/03/2017, 14:33. [facility], [place], [place] PET CT FUSION SKULL 2 THIGH, 09/03/2017, 16:13. [facility], CT, CT CHEST ABD PEL W CON, 03/30/2018, 14:02. [facility], CT, CT CHEST ABD PEL W CON, 01/05/2018, 10:56. [facility], [place], US ABDOMEN LIMITED, 01/26/2018, 11:36. FINDINGS: The craniocaudad length of the liver is 18.5 cm. The liver volume is overall large and the hepatic margination is mildly nodular. Hepatic echotexture is mildly heterogeneous, without mass. Main portal vein is patent, with appropriate direction of flow. No ascites is found. IMPRESSION: Persistent hepatomegaly, heterogeneous liver echotexture without mass. Portal vein patent with appropriate direction of flow. 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 on 06/22/2018 at 11:05 Approved by: Ajit York M.D. on 06/22/2018 at 11:14
== END ==
PROVIDERS: PCP Family Medicine; Visit Provider Internal Medicine Gastroenterology
DX: K70.30 Alcoholic cirrhosis of liver without ascites (principal)
CPT/HCPCS: 76705

== ENCOUNTER → 2018-06-26 17:03 | Outpatient (CLI) | payer OTHER, MEDICAID, SELFPAY ==
--- NOTE | 2018-06-26 17:04 | DI.MRI.S_ITS ---
PROCEDURE: MR LUMBAR SPINE WO CON INDICATIONS: Chronic low back pain with history of testicular ca TECHNIQUE: Noncontrast sagittal T1 spin echo and T2 fast echo, coronal T2, sagittal STIR, axial T1 and T2 fast spin echo through the lumbar spine. COMPARISON: [facility], , ABDOMEN 1 VIEW, 04/24/2017, 12:52. FINDINGS: Image quality: Excellent. Alignment and Curvature: There is normal bony alignment. Bone Marrow: Marrow is of normal overall signal. No acute vertebral body compression fractures. Mild reactive signal within the endplates adjacent to the the L4-L5 and L5-S1 intervertebral discs. Spinal Cord: Conus medullaris terminates at the upper L1 level. Visualized cord demonstrates normal signal and size. Paraspinous Soft Tissues: No paravertebral masses. L1-L2: Mild facet and ligamentum flavum hypertrophy. Mild canal stenosis. Mild bilateral foraminal stenosis. L2-L3: Mild disc desiccation. Mild facet and ligamentum flavum hypertrophy. Mild canal stenosis. Mild bilateral foraminal stenosis. L3-L4: Small right posterior lateral broad based protrusion. Mild facet and ligamentum flavum hypertrophy. Mild canal stenosis. Mild right greater than left foraminal stenosis. L4-L5: Moderate disc height loss and desiccation. Mild diffuse disc bulge/osteophyte. Mild facet and ligamentum flavum hypertrophy. Moderate canal stenosis. Mild bilateral foraminal stenosis. L5-S1: Moderate disc height loss and desiccation. Mild diffuse disc bulge with superimposed broad-based left posterolateral protrusion. Mild bilateral facet hypertrophy. Moderate canal stenosis. Moderate left greater than right lateral recess stenosis. The disc abuts the left S1 nerve root within the lateral recess. There is moderate to severe left-sided foraminal stenosis with possible flattening of the left L5 nerve root. Mild right foraminal stenosis. IMPRESSION: 1.Multilevel degenerative disc and facet disease, as well as ligamentum flavum hypertrophy and epidural lipomatosis. 2. Multilevel canal stenoses, worst at L4-L5 and L5-S1, where there are moderate canal stenosis present. 3. Lateral recess stenosis bilaterally at L5-S1 with abutment of the left S1 nerve root within the lateral recess. 4. Possible intraforaminal left L5 nerve root flattening and L5-S1. 5. Recommend correlation with clinical symptoms to ascertain relevance of these findings. Dictated by: Jerel Paz M.D. on 06/29/2018 at 8:49 Approved by: Jerel Paz M.D. on 06/29/2018 at 9:04
== END ==
PROVIDERS: PCP Family Medicine; Visit Provider Physical Medicine & Rehabilitation
DX: M54.5 Low back pain (principal); M51.36 Other intervertebral disc degeneration, lumbar region; M51.37 Other intervertebral disc degeneration, lumbosacral region; M48.061 Spinal stenosis, lumbar region without neurogenic claudication; M48.07 Spinal stenosis, lumbosacral region; E88.2 Lipomatosis, not elsewhere classified; L40.50 Arthropathic psoriasis, unspecified; G89.29 Other chronic pain; Z85.47 Personal history of malignant neoplasm of testis
CPT/HCPCS: 72148

== ENCOUNTER → 2018-07-06 12:35 | Outpatient (CLI) | payer OTHER, MEDICAID, SELFPAY ==
--- NOTE | 2018-07-06 13:52 | DI.CT.S_ITS ---
PROCEDURE: CT CHEST ABD PEL W CON INDICATIONS: surveillance. Testicular cancer TECHNIQUE: After the administration of oral and intravenous contrast, 5 mm thick sections acquired from the lung apices to the symphysis. 5 mm coronal and sagittal reformats were performed, with additional 7 mm coronal MIP reformats through the lungs. For radiation dose reduction, the following was used: automated exposure control, adjustment of mA and/or kV according to patient size. COMPARISON: [facility], CT, CT CHEST ABD PEL W CON, 01/05/2018, 10:56. [facility], [place], [place] PET CT FUSION SKULL 2 THIGH, 09/03/2017, 16:13. [facility], CT, CT CHEST ABD PEL W CON, 09/03/2017, 14:33. [facility], CT, CT CHEST ABD PEL W CON, 03/30/2018, 14:02. FINDINGS: Image quality: Excellent. CHEST: Lungs and pleura: No acute consolidation. No pleural effusions or pneumothorax. Central and peripheral airways appear patent and normal in caliber. Mediastinum: Heart size is normal. No pericardial effusion. No mediastinal or hilar adenopathy by size criteria. Thoracic aorta and central pulmonary arteries are normal in size. Previously described abnormal paraspinal soft tissue along the descending aorta appears grossly stable to less conspicuous since the prior study. Esophagus is normal in caliber. No hiatal hernia. Chest wall: No axillary or supraclavicular adenopathy by size criteria. Thyroid gland negative. Incidental bilateral gynecomastia. ABDOMEN: Solid organs: Liver demonstrates a micronodular contour suggestive of cirrhosis. As grossly unchanged. Gallbladder contains numerous gallstones although contracted and otherwise unremarkable. Biliary system is non dilated. Pancreas enhances normally. Spleen is normal in size and enhancement. No adrenal nodules. Kidneys demonstrate normal size and enhancement, without hydronephrosis. Peritoneum and bowel: Bowel loops demonstrate normal wall thickness and caliber. No free fluid or air. Nodes and vessels: Stable shotty retroperitoneal lymph nodes. No definite retroperitoneal or mesenteric adenopathy by size criteria. Aorta and inferior vena cava are normal in size. Miscellaneous: No ventral hernias. PELVIS: Genitourinary: Chronic circumferential bladder wall thickening. No interval change Miscellaneous: No inguinal hernias or adenopathy. Bones: No suspicious bony lesions. No vertebral body compression fractures. IMPRESSION: Stable examination without specific evidence for active metastatic disease. Cirrhosis of the liver. Chronic circumferential bladder wall thickening. Recommend clinical/urinalysis correlation. Incidental cholelithiasis. Dictated by: Sumeet Alexis M.D. on 07/06/2018 at 16:13 Approved by: Sumeet Alexis M.D. on 07/06/2018 at 17:17
== END ==
PROVIDERS: PCP Family Medicine; Visit Provider Internal Medicine Hematology & Oncology
DX: C62.92 Malignant neoplasm of left testis, unspecified whether descended or undescended (principal); K74.60 Unspecified cirrhosis of liver; K80.80 Other cholelithiasis without obstruction
CPT/HCPCS: 71260; 74177; Q9967

== ENCOUNTER → 2018-09-16 10:45 | Outpatient (CLI) | payer OTHER, MEDICAID, SELFPAY ==
--- NOTE | 2018-09-16 10:48 | DI.CT.S_ITS ---
PROCEDURE: CT CHEST ABD PEL W CON INDICATIONS: weight loss TECHNIQUE: After the administration of oral and intravenous contrast, 5 mm thick sections acquired from the lung apices to the symphysis. 5 mm coronal and sagittal reformats were performed, with additional 7 mm coronal MIP reformats through the lungs. For radiation dose reduction, the following was used: automated exposure control, adjustment of mA and/or kV according to patient size. COMPARISON: [facility], CT, CT CHEST ABD PEL W CON, 07/06/2018, 13:34. [facility], CT, CT CHEST ABD PEL W CON, 03/30/2018, 14:02. FINDINGS: Image quality: Excellent. CHEST: Lungs and pleura: No acute airspace opacities. No pleural effusions or pneumothorax. Central and peripheral airways appear patent and normal in caliber. Mediastinum: Heart size is normal. No pericardial effusion. No mediastinal or hilar adenopathy by size criteria. Thoracic aorta and central pulmonary arteries are normal in size. Esophagus is normal in caliber. No hiatal hernia. Chest wall: No axillary or supraclavicular adenopathy by size criteria. Thyroid gland appears normal. Old left-sided posterior superior rib fractures are again seen. ABDOMEN: Solid organs: Liver is normal in size and enhancement but there is nodular margination of the hepatic capsular border best seen at the left lateral hepatic segment, consistent with cirrhosis.. Gallbladder contains small gallstones, calcified, and dependently layering without evidence of acute cholecystitis or biliary obstruction. Biliary system is non dilated. Pancreas enhances normally. Spleen is enlarged in size at 17.4 cm craniocaudad and normal in enhancement. No adrenal nodules. Kidneys demonstrate normal size and enhancement, without hydronephrosis. Peritoneum and bowel: Bowel loops demonstrate normal wall thickness and caliber. No free fluid or air. Nodes and vessels: No retroperitoneal or mesenteric adenopathy by size criteria. Aorta and inferior vena cava are normal in size. Miscellaneous: No ventral hernias. PELVIS: Genitourinary: Bladder wall thickness is normal. Miscellaneous: No inguinal hernias or adenopathy. Bones: No suspicious bony lesions. No vertebral body compression fractures. IMPRESSION: 1. No sign of recurrent testicular carcinoma, no adenopathy is found. 2. Hepatic cirrhosis with splenomegaly. Nodular margination of the liver, no focal liver mass lesion is found. Ascites or varices are not seen but the splenic craniocaudad length is 17.4 cm. 3. Through the chest, abdomen and pelvis no suspicion for chronic infection or underlying malignancy is found. 4. Small calcified gallstones are present within the gallbladder lumen but without associated biliary obstruction or evidence of acute cholecystitis. No common duct stone is suspected. Dictated by: Ajit York M.D. on 09/16/2018 at 13:35 Approved by: Ajit York M.D. on 09/16/2018 at 13:41
== END ==
PROVIDERS: Family Provider Physical Medicine & Rehabilitation; PCP Family Medicine; Visit Provider Internal Medicine Hematology & Oncology
DX: R63.4 Abnormal weight loss (principal); K74.60 Unspecified cirrhosis of liver; R16.1 Splenomegaly, not elsewhere classified; K80.20 Calculus of gallbladder without cholecystitis without obstruction; Z85.47 Personal history of malignant neoplasm of testis
CPT/HCPCS: 71260; 74177; Q9967

== ENCOUNTER → 2018-12-07 12:16 | Outpatient (CLI) | payer OTHER, MEDICAID, SELFPAY ==
--- NOTE | 2018-12-07 | DI.US.S_ITS ---
PROCEDURE: US ABDOMEN COMPLETE INDICATIONS: CIRRHOSIS TECHNIQUE: Real-time scanning was performed of the abdominal and retroperitoneal organs, with image documentation. COMPARISON: [facility], US, ABDOMEN COMPLETE, 01/22/2017, 3:35. [facility], CT, CT CHEST ABD PEL W CON, 09/16/2018, 12:28. FINDINGS: Liver: Liver is coarse in echotexture and moderately echogenic. There is scalloping of the hepatic capsule. No discrete liver mass. Gallbladder: Cholelithiasis with mild prominence of the gallbladder wall measuring 3.5 mm. Biliary ducts: Intrahepatic bile ducts are non-dilated. Extrahepatic bile duct caliber measures 7.6 mm. Normal is 6-7 mm or less in diameter, or 10 mm or less post-cholecystectomy. Pancreas: Visualized portions of the pancreas are sonographically normal. Spleen: Spleen is increased in size at 16.9 cm and homogeneous in echotexture. Kidneys: Kidneys are normal in size and echotexture. Right kidney measures 11.2 cm long; left kidney measures 11.2 cm long. No hydronephrosis or nephrolithiasis. No solid masses. Aorta: Visualized aorta is normal in caliber at less than 3 cm. Iliacs: Not well-seen. IVC: Intrahepatic inferior vena cava is patent. Miscellaneous: No free abdominal fluid. IMPRESSION: 1. Hepatic cirrhotic morphology redemonstrated and no discrete liver mass is seen. 2. Cholelithiasis with prominence of the gallbladder wall. Recommend clinical correlation to exclude developing cholecystitis. 3. Sonographic splenomegaly suggesting portal hypertension. Dictated by: Primo GRIFFIN Interpreted: Sumeet Alexis MD on 12/07/2018 at 13:37 Approved by: Sumeet Alexis M.D. on 12/07/2018 at 15:13
--- NOTE | 2018-12-07 | DI.RAD.S_ITS ---
PROCEDURE: FL BARIUM SWALLOW INDICATIONS: DYSPHAGIA Additional history: Reports food and pills getting stuck in the upper esophagus. History of paraesophageal variceal banding. COMPARISON: CT chest, abdomen and pelvis 09/16/2018. FINDINGS: Function: No significant esophageal dysmotility. Robust primary and secondary esophageal stripping waves. No significant elicited gastroesophageal reflux. Brief delayed transit of a calibrated barium tablet at the upper esophagus superior to the aortic arch, as well as at the diaphragmatic hiatus. Morphology: Air-contrast images demonstrate normal mucosal morphology. Single contrast views show no esophageal strictures, extrinsic mass effects, or diverticula. Limited images of the stomach demonstrate normal appearance. IMPRESSION: 1. Brief delayed transit of a barium tablet at the upper esophagus and at the diaphragmatic hiatus. 2. No significant esophageal dysmotility. No stricture or diverticulum. Dictated by: Joe Baxter M.D. on 12/07/2018 at 13:47 Approved by: Joe Baxter M.D. on 12/07/2018 at 13:53
== END ==
PROVIDERS: Family Provider Physical Medicine & Rehabilitation; PCP Family Medicine; Visit Provider Internal Medicine Gastroenterology
DX: R13.10 Dysphagia, unspecified (principal); I85.00 Esophageal varices without bleeding; K74.60 Unspecified cirrhosis of liver; K80.20 Calculus of gallbladder without cholecystitis without obstruction
CPT/HCPCS: 74220; 76700

== ENCOUNTER 2018-12-15 13:41 | Outpatient (CLI) | payer OTHER, MEDICAID, SELFPAY ==
[2018-12-15] VITALS (8 sets, daily range): BP systolic 119–146; BP diastolic 64–74; PULSE 48–61; RESP 16; TEMP 36.8; O2SAT 98–100
--- NOTE | 2018-12-15 14:25 | DI.RAD.S_ITS ---
PROCEDURE: PAIN L/SI FACET INJ/BLK 1STL INDICATIONS: SPONDYLOSIS FINDINGS: Fluoroscopic spot filming was performed to verify placement of spinal needles at the right L1-2 and L2-3 level(s), as labeled on the films. Appropriate location(s) of the needle tip(s) was confirmed by injection of iodinated contrast. IMPRESSION: Fluoroscopy guidance was provided intraoperatively for right L1-2 and L2-3 facet joint injection. Dictated by: Rodo Hagen M.D. on 12/15/2018 at 15:11 Approved by: Rodo Hagen M.D. on 12/15/2018 at 15:12
[2018-12-15] MEDS: fentaNYL 100 MCG/2 ML INJ 50 MCG IV (14:42)
[2018-12-15] MEDS: MIDAZOLAM 5 MG/5 ML VIAL IV (14:42)
[2018-12-15] MEDS: BUPIVACAINE 0.5% (PF) VIAL 2 ML INJ (14:46)
[2018-12-15] MEDS: IOPAMIDOL 15 ML VIAL 3 ML INJ (14:46)
[2018-12-15] MEDS: BETAMETHASONE 30 MG/5 ML MDV 12 MG INJ (14:47)
--- NOTE | 2018-12-15 14:50 | PC.NURSE ---
ASSISTING PT OFF TABLE AND TRANSPORTING TO POST PROC AREA IN STABLE CONDITION.
--- NOTE | 2018-12-15 14:56 | PC.NURSE ---
Pt returned from procedure via wheelchair awake and alert and able to transfer from w/c to chair with standby assist. Resumed monitoring from Felicia RUTLEDGE.
--- NOTE | 2018-12-15 14:56 | P.PCN_ITS ---
Procedures Date/Time Date of procedure: 12/15/18 Time of procedure: 14:52 General Procedure description: PREOP DIAGNOSIS 1. FACET ARTHROPATHY, 2. AXIAL LBP, 3. MULTILEVEL DDD, POST OP DIAGNOSIS 1. FACET ARTHROPATHY, 2. AXIAL LBP, 3. MULTILEVEL DDD, PROCEDURES 1. FLUORSCOPICALLY GUIDED CONTRAST CONTROLLED FACET JOINT INJECTIONS RIGHT L1/2, L2/3 SURGEON: Remi Main, INDICATIONS Suhail is referred by Dr. White for treatment of Axial LBP FINDINGS Multilevel Facet Arthropathy with Clinically significant axial LBP DESCRIPTION OF PROCEDURE Fluoroscopically guided, contrast-controlled right L1/2, L2/3 facet joint injec tions. Following review of allergy and review of potential side effects and complications, including, but not necessarily limited to, infection, allergic reaction, local tissue breakdown, stroke, temporary or permanent nerve injury, paralysis, and possible , the patient indicated that the patient understood and agreed to proceed. An informed consent document was signed by the patient, witnessed by a nurse, and placed in the patient's chart. Additionally, other treatment options including medications, modalities, and physical therapy were reviewed with the patient. After review of previous anaesthesic history and IV conscious sedation the patient was deemed safe to proceed with todays procedure with IV conscious sedation as ASA class II designation. Safety time-out was performed to confirm patient ID, procedure to be performed and site of procedure. IV sedation was accomplished with a combination of 2mg of Versed and 50mcg of Fentanyl administered by the RN after DO order, titrated to patient comfort during the course of the procedure while the patient remained responsive to all verbal commands. In the prone position, following sterile prep and drape of the lumbar region, the posterior aspect of the right L1/2, L2/3 facet joints were identified fluoroscopically. The skin was anesthetized via a 25-gauge 1.5-inch needle with 1% lidocaine solution into the corresponding facet joints. At this point, a 22-gauge 3.5-inch spinal needle was atraumatically introduced and advanced under fluoroscopic guidance into the corresponding facet joints. Following negative aspiration, injections of approximately 0.2-cc of Isovue 200 confirmed interarticular placement without vascular uptake. Radiological data, including multiple fluoroscopic views of the lumbosacral spine, reveal a spinal needle at the right L1/2, L2/3 facet joints. Subsequent views show flow of contrast material both superiorly and inferiorly within the joint space without vascular or intrathecal uptake. At this point, a total of 0.5 cc including a mixture of 0.25 cc Marcaine and 0.25 cc betamethasone was injected without complication into each of the corresponding facet joints. The patient tolerated the procedure well without signs or symptoms of complications prior to transfer to the recovery area for further monitoring. The patient was then transferred to the recovery area where they were observed for an appropriate period of time after the injection. The patient reported a VAS score of 7 prior to the procedure and a post-procedure VAS of 0. Total Fluoroscopy Time: 12.7 seconds Total Conscious Sedation Time: 24min POST OP INSTRUCTIONS The patient was provided a Pain Log to continue to record their response to the target-specific procedure prior to follow-up visit with their referring physician. Additionally, specific post-injection care instructions and a contact number to our office were provided if concerns arise regarding possible complications associated with the procedure are suspected Complications: none
== END 2018-12-15 15:40 ==
LOC: RAD 13:42
PROVIDERS: PCP Family Medicine; Visit Provider Physical Medicine & Rehabilitation
DX: M47.817 Spondylosis without myelopathy or radiculopathy, lumbosacral region (principal)
CPT/HCPCS: 64493; 99152; J0702; J2250; J3010

== ENCOUNTER 2018-12-23 04:14 | Emergency (ER) | payer OTHER, MEDICAID, SELFPAY ==
[2018-12-23 04:16] VITALS: BP 126/68; PULSE 60; RESP 20; TEMP 36.4; O2SAT 99; BMI 21.4
[2018-12-23] MEDS: HYDROMORPHONE 1 MG INJ IV ×2 (04:40→07:18)
[2018-12-23] MEDS: SODIUM CHLORIDE 0.9% 1,000 ML 1000 ML IV (04:40)
[2018-12-23] MEDS: DEXAMETHASONE 10 MG/ML VIAL IV (04:40)
[2018-12-23 05:01] VITALS: BP 129/58; PULSE 55; O2SAT 99
--- NOTE | 2018-12-23 05:03 | ED.BACK ---
HPI - Back Pain/Injury General Chief Complaint: Back Pain/Injury Stated Complaint: Lower back pain Time Seen by Provider: 12/23/18 04:15 Source: patient and family Mode of arrival: EMS Limitations: no limitations History of Present Illness HPI Narrative: 58-year-old male nonsmoker with history of testicular cancer with metastases to his back. He has had chemotherapy and radiation in the past and things had been relatively well controlled but patient has had worsening pain over the past few months and an unexplained weight loss of upwards of 20 lb over the past few months. He had a spinal injection about a week ago the provided some relief but due to his overall increasing pain he was scheduled to have a bone scan later today. Historically he gets chest abdomen pelvis CTs every 3 months and last was in the end of August. He denies any numbness, tingling or weakness. Denies any trouble controlling bowel or bladder. He presents by EMS and had received fentanyl 200 micro g prior to the right MD Complaint: back pain Onset (ago): day(s) Duration: constant Similar Symptoms Previously: Yes Location: lumbar spine Severity: severe Quality: burning and aching Radiation: none Relieving factors: none Exacerbating factors: movement Related Data Home Medications Medication Instructions Recorded Confirmed polyethylene glycol 3350 8.5 gram 17 gram PO DAILY 03/30/18 11/13/18 oral powder packet secukinumab 150 mg/mL subcutaneous 300 mg SUBCUT Q4W ml 08/05/18 11/13/18 pen injector omeprazole magnesium 20 mg 20 mg PO DAILY 11/09/18 11/13/18 tablet,delayed release Previous Rx's Medication Instructions Recorded lidocaine 4 % topical patch 1 patch TOP Q12H PRN #30 each 07/31/18 gabapentin 300 mg capsule 300 mg PO Q8H #150 cap 11/20/18 oxycodone 10 mg tablet 10 mg PO TID PRN #90 tab MDD 20 mg 12/11/18 hydromorphone [Dilaudid] 2 mg PO Q4-6H PRN #30 tab 12/23/18 Allergies Allergy/AdvReac Type Severity Reaction Status Date / Time No Known Drug Allergies Allergy Verified 12/15/18 14:39 Review of Systems Constitutional Constitutional: Denies chills, Denies fatigue, Denies fever(s), Denies frequent falls, Denies lethargy and Denies weakness Eyes Eyes: Denies change in vision, Denies eye discharge, Denies irritation and Denies loss of vision ENT Ears, Nose, Mouth, and Throat: Denies change in voice, Denies dizziness, Denies neck pain, Denies sore throat and Denies throat swelling Cardiovascular Cardiovascular: Denies chest pain, Denies irregular heart rhythm, Denies lightheadedness, Denies palpitations, Denies dyspnea, Denies dyspnea on exertion and Denies orthopnea Respiratory Respiratory: Denies cough, Denies dyspnea, Denies dyspnea on exertion and Denies wheezing Gastrointestinal Gastrointestinal: Denies abdominal pain, Denies change in bowel habits, Denies diarrhea, Denies nausea and Denies vomiting Genitourinary Genitourinary: Denies hematuria, Denies flank pain, Denies urinary incontinence and Denies urinary urgency Musculoskeletal Musculoskeletal: Reports back pain, Denies muscle weakness, Denies neck pain, Denies numbness and Denies tingling Integumentary/Breasts Skin/Breast: Denies pruritus, Denies erythema, Denies rash and Denies wounds Neurologic Neurologic: Denies behavioral changes, Denies confusion, Denies dizziness, Denies frequent falls, Denies loss of vision, Denies numbness, Denies tingling and Denies weakness Psychiatric Psychiatric: Denies anxiety, Denies behavioral changes, Denies confusion, Denies depression, Denies homicidal ideation and Denies suicidal ideation Endocrine Endocrine: Denies fatigue, Denies flushing and Denies palpitations Hematologic/Lymphatic Hematologic/Lymphatic: Denies easy bruising Allergic/Immunologic Allergic/Immunologic: Denies urticaria, Denies throat swelling and Denies wheezing [facility] Medical History Cirrhosis (Chronic Unknown) 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 Chronically ill, thin, obviously in a significant amount of pain, unable to sit still and writhing on the cart HEAD: Atraumatic. Normocephalic. EYES: Pupils equal round and reactive. Extraocular motions intact. No scleral icterus. No injection or drainage. ENT: Nose without bleeding, purulent drainage. Throat without erythema, tonsillar hypertrophy or exudate. Airway patent. NECK: Trachea midline. Non tender CARDIOVASCULAR: Regular rate and rhythm without murmurs, gallops, or rubs. RESPIRATORY: Clear to auscultation. Breath sounds equal bilaterally. No wheezes, rales, or rhonchi. GASTROINTESTINAL: Abdomen soft, non-tender, nondistended. EXTREMITIES: No edema or joint tenderness. BACK: Midline tenderness to palpation in the lumbar region NEURO: AOx3. SKIN: No rash or erythema of visible areas Initial Vital Signs Initial Vital Signs: Vital Signs Temperature 97.6 F 12/23/18 04:16 Pulse Rate 60 12/23/18 04:16 Respiratory Rate 20 12/23/18 04:16 Blood Pressure 126/68 12/23/18 04:16 Pulse Oximetry 99 12/23/18 04:16 Course Orders Ordered: Discontinued Medications Dexamethasone (Decadron) 10 mg IV NOW ONE Stop: 12/23/18 04:26 Last Admin: 12/23/18 04:40 Dose: 10 mg Documented by: RADHA Hydromorphone HCl (Dilaudid) 1 mg IV NOW ONE Stop: 12/23/18 04:26 Last Admin: 12/23/18 04:40 Dose: 1 mg Documented by: RADHA Hydromorphone HCl (Dilaudid) 1 mg IV NOW ONE Stop: 12/23/18 07:04 Last Admin: 12/23/18 07:18 Dose: 1 mg Documented by: TAYLOR Sodium Chloride (Normal Saline 0.9%) 1,000 mls @ 1,000 mls/hr IV BOLUS ONE Stop: 12/23/18 05:24 Last Infusion: 12/23/18 05:49 Dose: 0 mls/hr Documented by: Admin: 12/23/18 04:40 Dose: 1,000 mls/hr Documented by: RADHA Reevaluation(s) Reevaluation #1: patient did have some improvement in symptoms after above stated therapies Consultations Consultation #1: Dr. Main consulted, will try to see patient in ED before clinic Vital Signs Vital signs: Vital Signs - 8 hr 12/23/18 04:16 12/23/18 05:01 Temperature 97.6 F Pulse Rate 60 55 L Respiratory Rate 20 Blood Pressure 126/68 Blood Pressure [Right Arm] 129/58 L Pulse Oximetry 99 99 MDM - Back Pain/Injury Lab Data Result diagrams: 12/23/18 04:55 12/23/18 04:55 Labs: Lab Results 12/23/18 12/23/18 12/23/18 Range/Units 04:55 04:55 04:55 WBC 4.5 (4.5-11.0) X10^3/uL RBC 3.80 L (4.5-5.9) X10^6/uL Hgb 11.4 L (13.5-17.5) g/dL Hct 33.7 L (41-53) % MCV 88.8 (80-100) fL MCH 29.9 (26-34) PG MCHC 33.7 (30-36) % RDW 14.2 (11.6-14.8) % Plt Count 75 L (150-400) X10^3/uL Neut % (Auto) 85.5 H (50-75) % Lymph % (Auto) 7.2 L (25-40) % [place] % (Auto) 6.7 (3-14) % Eos % (Auto) 0.4 L (2-4) % Baso % (Auto) 0.2 (0-2) % Neut # (Auto) 3800 (3414-5698) /uL Lymph # (Auto) 300 L (9886-3513) /uL [place] # (Auto) 300 (0-900) /uL Eos # (Auto) 0 (0-450) /uL Baso # (Auto) 0 (0-100) /uL ESR 17 H (0-15) MM/HR Sodium (137-145) mmol/L Potassium (3.4-5.1) mmol/L Chloride (98-107) mmol/L Carbon Dioxide (22-32) mmol/L BUN (9-20) mg/dL Creatinine (0.66-1.25) mg/dL Estimated GFR (>60) mL/min BUN/Creatinine Ratio (6-22) Glucose (70-100) mg/dL Calcium (8.4-10.2) mg/dL Alkaline Phosphatase 77 (38-126) U/L C-Reactive Protein 0.6 (<1.0) mg/dL 12/23/18 Range/Units 04:55 WBC (4.5-11.0) X10^3/uL RBC (4.5-5.9) X10^6/uL Hgb (13.5-17.5) g/dL Hct (41-53) % MCV (80-100) fL MCH (26-34) PG MCHC (30-36) % RDW (11.6-14.8) % Plt Count (150-400) X10^3/uL Neut % (Auto) (50-75) % Lymph % (Auto) (25-40) % [place] % (Auto) (3-14) % Eos % (Auto) (2-4) % Baso % (Auto) (0-2) % Neut # (Auto) (9287-6312) /uL Lymph # (Auto) (5904-0271) /uL [place] # (Auto) (0-900) /uL Eos # (Auto) (0-450) /uL Baso # (Auto) (0-100) /uL ESR (0-15) MM/HR Sodium 135 L (137-145) mmol/L Potassium 4.1 (3.4-5.1) mmol/L Chloride 99 (98-107) mmol/L Carbon Dioxide 30 (22-32) mmol/L BUN 13 (9-20) mg/dL Creatinine 0.60 L (0.66-1.25) mg/dL Estimated GFR > 60.0 (>60) mL/min BUN/Creatinine Ratio 21.7 (6-22) Glucose 107 H (70-100) mg/dL Calcium 9.0 (8.4-10.2) mg/dL Alkaline Phosphatase (38-126) U/L C-Reactive Protein (<1.0) mg/dL Urine Dip Bedside Urine Glucose Negative Bedside Urine Bilirubin - Negative Bedside Urine Ketone - Negative Urine Specific [place] 1.010 Bedside Urine Occult Blood - Negative Bedside Urine pH 6.5 Bedside Urine Protein +/- 15 Bedside Urine Urobilinogen - Negative Bedside Urine Nitrite - Negative Bedside Urine Leukocytes - Negative Esterase Discharge Plan Departure Patient Disposition: Home Clinical Impression: Back pain Qualifiers: Back pain location: low back pain Chronicity: acute Back pain laterality: right Sciatica presence: unspecified whether sciatica present Qualified Code(s): M54.5 - Low back pain Discharge Date/Time: 12/23/18 08:20 Instructions: DI for Low Back Pain Activity Restrictions/Additional Instructions: You have been prescribed narcotic medications. While on these medications you cannot drive or operate heavy machinery. Additionally you cannot sign legal documents or perform any duties such as this. Many people get constipated on narcotic medications so it would be advisable to discuss stool softeners with the pharmacist when you pickle processor your prescription. Please understand that we cannot provide further refills of narcotics or controlled substances through the ED and your pain management will need to be through your Primary Care Provider Prescriptions: New hydromorphone [Dilaudid] 2 mg tablet 2 mg PO Q4-6H PRN (Reason: pain) Qty: 30 RF: 0 No Action polyethylene glycol 3350 8.5 gram powder in packet 17 gram PO DAILY RF: 0 gabapentin 300 mg capsule 300 mg PO Q8H Qty: 150 RF: 2 oxycodone 10 mg tablet 10 mg PO TID MDD 20 mg PRN (Reason: pain) Qty: 90 RF: 0 secukinumab 150 mg/mL pen injector 300 mg subcut Q4W RF: 0 Prilosec OTC 20 mg tablet,delayed release (DR/EC) 20 mg PO DAILY RF: 0 lidocaine 4 % adhesive patch,medicated 1 patch TOP Q12H PRN (Reason: pain) Qty: 30 RF: 2 Referrals: Shani White DO [Primary Care Provider] -
--- NOTE | 2018-12-23 05:04 | DI.CT.S_ITS ---
PROCEDURE: CT CHEST ABD PEL W CON INDICATIONS: severe back pain, difficulty swallowing, known metastatic cancer TECHNIQUE: After the administration of oral and intravenous contrast, 5 mm thick sections acquired from the lung apices to the symphysis. 5 mm coronal and sagittal reformats were performed, with additional 7 mm coronal MIP reformats through the lungs. For radiation dose reduction, the following was used: automated exposure control, adjustment of mA and/or kV according to patient size. COMPARISON: [facility], CT, CT CHEST ABD PEL W CON, 07/06/2018, 13:34. [facility], MR, MR LUMBAR SPINE WO CON, 06/26/2018, 17:27. [facility], NM, NM PET CT FUSION SKULL 2 THIGH, 09/03/2017, 16:13. [facility], CT, CT CHEST ABD PEL W CON, 01/05/2018, 10:56. [facility], CT, CT CHEST ABD PEL W CON, 03/30/2018, 14:02. [facility], CT, CT CHEST ABD PEL W CON, 09/16/2018, 12:28. FINDINGS: Image quality: Excellent. CHEST: Lungs and pleura: No acute airspace opacities. No pleural effusions or pneumothorax. Central and peripheral airways appear patent and normal in caliber. Mediastinum: Heart size is normal. No pericardial effusion. No mediastinal or hilar adenopathy by size criteria. Thoracic aorta and central pulmonary arteries are normal in size. Esophagus is normal in caliber. No hiatal hernia. Chest wall: No axillary or supraclavicular adenopathy by size criteria. Thyroid gland is normal. ABDOMEN: Solid organs: Liver demonstrates nodular contour consistent with cirrhosis. Liver is normal in size and enhancement. Gallbladder contains gallstones. No gallbladder wall thickening or pericholecystic fluid collection. Biliary system is non dilated. Pancreas enhances normally. Spleen is enlarged measuring 17 cm in length. No adrenal nodules. Kidneys demonstrate normal size and enhancement, without hydronephrosis. Peritoneum and bowel: Bowel loops demonstrate normal wall thickness and caliber. There is a moderate amount of stool in colon. Scattered colonic diverticula are present. No CT findings to suggest acute diverticulitis. No free fluid or air. Nodes and vessels: No retroperitoneal or mesenteric adenopathy by size criteria. Aorta and inferior vena cava are normal in size. Miscellaneous: No ventral hernias. PELVIS: Genitourinary: Bladder wall is diffusely thickened. No bladder stones. Enlarged prostate. Miscellaneous: No inguinal hernias or adenopathy. Bones: No suspicious bony lesions. No vertebral body compression fractures. There are degenerative changes in thoracic and lumbar spine. IMPRESSION: 1. Nodular contour of liver consistent with cirrhosis. 2. Splenomegaly likely secondary to portal hypertension. 3. Diffuse thickening of the inner bladder bladder suggesting cystitis. Recommend clinical correlation. 4. Cholelithiasis. 5. Diverticulosis without diverticulitis. 6. No metastatic disease identified. No significant discrepancy with the bridge tender radiology preliminary report. Dictated by: Shun Mcnair M.D. on 12/23/2018 at 8:20 Approved by: Shun Mcnair M.D. on 12/23/2018 at 8:34
[2018-12-23 05:14] LABS: Add Manual Diff / Slide Review NO; Basophils Absolute Auto 0 /uL (0-100); Basophils Percent Auto 0.2 % (0-2); Eosinophils Absolute Auto 0 /uL (0-450); Eosinophils Percent Auto 0.4 % (2-4); Hematocrit 33.7 % (41-53); Hemoglobin 11.4 g/dL (13.5-17.5); Lymphocytes Absolute Auto 300 /uL (1100-4500); Lymphocytes Percent Auto 7.2 % (25-40); Mean Corpuscular HGB Conc 33.7 % (30-36); Mean Corpuscular Hemoglobin 29.9 PG (26-34); Mean Corpuscular Volume 88.8 fL (80-100); Monocytes Absolute Auto 300 /uL (0-900); Monocytes Percent Auto 6.7 % (3-14); Neutrophils Absolute Auto 3800 /uL (1500-7000); Neutrophils Percent Auto 85.5 % (50-75); Platelet Count 75 X10^3/uL (150-400); Red Cell Distribution Width 14.2 % (11.6-14.8); White Blood Cell Count 4.5 X10^3/uL (4.5-11.0)
[2018-12-23 05:19] LABS: BUN Creatinine Ratio 21.7 (6-22); Blood Urea Nitrogen 13 mg/dL (9-20); Carbon Dioxide 30 mmol/L (22-32); Chloride 99 mmol/L (98-107); Estimated Glomerular Filt Rate > 60.0 mL/min (>60); Glucose 107 mg/dL (70-100); HEMOLYSIS < 15 (0-50); Potassium 4.1 mmol/L (3.4-5.1); Sodium 135 mmol/L (137-145)
[2018-12-23 05:29] LABS: Alkaline Phosphatase 77 U/L (38-126); C-Reactive Protein Quant 0.6 mg/dL (<1.0)
[2018-12-23 05:30] LABS: Erythrocyte Sedimentation Rate 17 MM/HR (0-15)
[2018-12-23 05:59] VITALS: BP 126/60; PULSE 60; RESP 98
[2018-12-23 07:30] VITALS: BP 106/48; PULSE 57; RESP 18; O2SAT 99
--- NOTE | 2018-12-23 08:18 | PC.NURSE ---
pt ambulated without difficulty. states he does not want a walker at this time.
[2018-12-23 08:20] VITALS: BP 113/50; PULSE 57; RESP 18; TEMP 36.7; O2SAT 99
== END 2018-12-23 08:20 | disposition home or self-care (01) ==
PROVIDERS: Emergency Provider Emergency Medicine; PCP Family Medicine
DX: M54.5 Low back pain (principal)
CPT/HCPCS: 36415; 71260; 74177; 80048; 81003; 84075; 85025; 85651; 86140; 96361; 96374; 96375; 96376; 99283; 99285; J1100; J1170; Q9967

== ENCOUNTER → 2018-12-23 09:23 | Outpatient (CLI) | payer OTHER, MEDICAID, SELFPAY | PROVIDERS: PCP Family Medicine; Visit Provider Family Medicine | DX: M85.851 Other specified disorders of bone density and structure, right thigh (principal); M85.852 Other specified disorders of bone density and structure, left thigh; M54.6 Pain in thoracic spine; R63.4 Abnormal weight loss; M06.9 Rheumatoid arthritis, unspecified | CPT/HCPCS: 77080 ==

== ENCOUNTER → 2019-01-18 11:44 | Outpatient (CLI) | payer OTHER, MEDICAID, SELFPAY ==
--- NOTE | 2019-01-18 11:45 | DI.MRI.S_ITS ---
PROCEDURE: MR THORACIC SPINE WO/W CON INDICATIONS: thoracic cancino with testicular ca TECHNIQUE: Noncontrast sagittal T1 spin echo and T2 fast spin echo, sagittal STIR, axial T1 and T2 fast spin echo through the thoracic spine. After the administration of contrast, axial and sagittal T1 spin echo with fat saturation through the thoracic spine. COMPARISON: [facility], CT, CT CHEST ABD PEL W CON, 12/23/2018, 5:13. FINDINGS: Image quality: Excellent. Alignment and curvature: There is normal bony alignment. Marrow: Small focus of decreased T2 and decreased T1 signal with central post contrast-enhancement is noted in the T9 vertebral body measures approximately 1.6 cm in diameter. Lesion has imaging characteristics most concerning for atypical hemangioma. No additional signal abnormality or suspicious postcontrast enhancement identified in the thoracic spine. No acute vertebral body compression fractures. Spinal cord: Visualized spinal cord is of normal signal and size, without abnormal enhancement. Paraspinous soft tissues: No paravertebral masses or abnormal enhancement. Miscellaneous: Moderate T7 and T8 T8-T9, T9-T10, T10-T11 and T11-T12 degenerative disc change. Moderate-sized T. 12-L1 central disc protrusion. Mild T12-L1 facet arthropathy. Mild T12-L1 central canal narrowing. Mild bilateral T10-T11, T11-T12 and T12-L1 neural foraminal narrowing. IMPRESSION: 1. 1.6 cm in diameter lesion with central post contrast-enhancement in the T9 vertebral body. Lesion likely represents a hemangioma, however the lesion has imaging characteristics atypical for hemangioma. Recommend repeat MRI of the thoracic spine with and without contrast 1-3 months. 2. Multilevel degenerative disc disease. 3. T12-L1 facet arthropathy. 4. Mild T12-L1 central canal narrowing. 5. Mild bilateral T10-T11, T11-T12 and T12-L1 neural foraminal narrowing. 6. No neural compression. Dictated by: Yanelis Murphy MD, PhD on 01/18/2019 at 14:32 Approved by: Yanelis Murphy MD, PhD on 01/18/2019 at 14:40
== END ==
PROVIDERS: PCP Family Medicine; Visit Provider Physical Medicine & Rehabilitation
DX: C62.92 Malignant neoplasm of left testis, unspecified whether descended or undescended (principal); M89.9 Disorder of bone, unspecified; M47.815 Spondylosis without myelopathy or radiculopathy, thoracolumbar region; M51.34 Other intervertebral disc degeneration, thoracic region; M48.04 Spinal stenosis, thoracic region
CPT/HCPCS: 72157; A9579

== ENCOUNTER → 2019-01-22 07:49 | Outpatient (CLI) | payer OTHER, MEDICAID, SELFPAY ==
--- NOTE | 2019-01-22 07:51 | DI.NM.S_ITS ---
PROCEDURE: [place] BONE SCAN WHOLE BODY RADIOPHARMACEUTICAL: 19.2 mCi Tc-99m MDP IV. INDICATIONS: thoracic cancino with testicular ca TECHNIQUE: Delayed whole-body scintigrams were obtained approximately 3-4 hours after intravenous injection of radiotracer. Anterior and posterior views were acquired from vertex to feet. COMPARISON: [facility], [place], [place] PET CT FUSION SKULL 2 THIGH, 01/13/2019, 16:41. [facility], MR, MR THORACIC SPINE WO/W CON, 01/18/2019, 12:15. FINDINGS: No definite abnormal focal osseous uptake to suggest metastatic disease. Specifically, no focal uptake demonstrated in the lower thoracic spine corresponding to the probable hemangioma seen on recent MRI. IMPRESSION: 1. No evidence of osseous metastatic disease. Dictated by: Shashi Fernandez M.D. on 01/22/2019 at 22:38 Approved by: Shashi Fernandez M.D. on 01/22/2019 at 22:40
== END ==
PROVIDERS: PCP Family Medicine; Visit Provider Physical Medicine & Rehabilitation
DX: C62.92 Malignant neoplasm of left testis, unspecified whether descended or undescended (principal); M54.6 Pain in thoracic spine
CPT/HCPCS: 78306; A9503

== ENCOUNTER → 2019-02-03 09:39 | Outpatient (CLI) | payer OTHER, MEDICAID, SELFPAY ==
--- NOTE | 2019-02-03 | DI.US.S_ITS ---
PROCEDURE: US CHEST INDICATIONS: DORSALGIA, UNSPECIFIED TECHNIQUE: Targeted ultrasound of the upper back in the area of pain. Comparison with the contralateral side was performed. COMPARISON: PET/CT 01/13/2019. CT chest, abdomen and pelvis 12/23/2018. FINDINGS: No mass or fluid collection. No subcutaneous edema. Homogeneous appearance of the soft tissues bilaterally. The right superficial paraspinal musculature and is slightly larger than the left which is felt to be within normal limits. IMPRESSION: Negative exam. No abnormality identified to explain the patient's right upper back pain. Dictated by: Joe Baxter M.D. on 02/03/2019 at 10:58 Approved by: Joe Baxter M.D. on 02/03/2019 at 11:09
== END ==
PROVIDERS: PCP Family Medicine; Visit Provider Internal Medicine Hematology & Oncology
DX: M54.9 Dorsalgia, unspecified (principal); C62.92 Malignant neoplasm of left testis, unspecified whether descended or undescended
CPT/HCPCS: 76604

== ENCOUNTER → 2019-06-30 10:37 | Outpatient (CLI) | payer OTHER, MEDICAID, SELFPAY ==
--- NOTE | 2019-06-30 | DI.US.S_ITS ---
PROCEDURE: US ABDOMEN COMPLETE INDICATIONS: CIRRHOSIS TECHNIQUE: Real-time scanning was performed of the abdominal and retroperitoneal organs, with image documentation. COMPARISON: [facility], US, US ABDOMEN COMPLETE, 12/07/2018, 12:31. FINDINGS: Liver: Coarse echogenic liver appearance. No focal hepatic lesion identified. Gallbladder: Gallstone is seen measuring 7.6 mm within the region of the gallbladder neck and demonstrates normal appearance. No pericholecystic fluid, however gallbladder wall thickening measures 4 mm. There is also positive sonographic Heaton sign. Biliary ducts: Intrahepatic bile ducts are non-dilated. Extrahepatic bile duct caliber measures 8 mm. Normal is 6-7 mm or less in diameter, or 10 mm or less post-cholecystectomy. Pancreas: Visualized portions of the pancreas are sonographically normal. Spleen: Spleen is enlarged measuring 17.3 cm in length. Splenic vein demonstrates normal appearance Kidneys: Kidneys are normal in size and echotexture. Right kidney measures 11.1 cm long; left kidney measures 9.5 cm long. No hydronephrosis or nephrolithiasis. No solid masses. Aorta: Visualized aorta is normal in caliber at less than 3 cm. Iliacs: Not well-visualized sonographically IVC: Intrahepatic inferior vena cava is patent. Miscellaneous: No free abdominal fluid. IMPRESSION: Cholelithiasis, gallbladder wall thickening and positive sonographic Heaton sign. Findings concerning for acute cholecystitis. Results were called to the patients nurse (July) at the time of the study by the deputy sheriff generalist/bailiff Splenomegaly. Coarse echogenic liver suggesting diffuse hepatocellular disease/fatty infiltration. Please correlate with LFTs. Dictated by: Sumeet Alexis M.D. on 06/30/2019 at 13:28 Approved by: Sumeet Alexis M.D. on 06/30/2019 at 13:31
== END ==
PROVIDERS: PCP Family Medicine; Referring Provider Internal Medicine Gastroenterology; Visit Provider Internal Medicine Gastroenterology
DX: K74.60 Unspecified cirrhosis of liver (principal); K80.20 Calculus of gallbladder without cholecystitis without obstruction; R16.1 Splenomegaly, not elsewhere classified
CPT/HCPCS: 76700

== ENCOUNTER → 2019-07-06 16:37 | Outpatient (CLI) | payer OTHER, MEDICAID, SELFPAY ==
[2019-07-06 17:45] LABS: Add Manual Diff / Slide Review NO; Basophils Absolute Auto 0 /uL (0-100); Basophils Percent Auto 0.3 % (0-2); Eosinophils Absolute Auto 100 /uL (0-450); Eosinophils Percent Auto 1.2 % (2-4); Hematocrit 33.6 % (41-53); Hemoglobin 11.5 g/dL (13.5-17.5); Lymphocytes Absolute Auto 1700 /uL (1100-4500); Lymphocytes Percent Auto 30.2 % (25-40); Mean Corpuscular HGB Conc 34.1 % (30-36); Mean Corpuscular Hemoglobin 30.4 PG (26-34); Mean Corpuscular Volume 89.2 fL (80-100); Monocytes Absolute Auto 700 /uL (0-900); Monocytes Percent Auto 11.6 % (3-14); Neutrophils Absolute Auto 3200 /uL (1500-7000); Neutrophils Percent Auto 56.7 % (50-75); Platelet Count 83 X10^3/uL (150-400); Red Blood Cell Count 3.76 X10^6/uL (4.5-5.9); Red Cell Distribution Width 13.3 % (11.6-14.8); White Blood Cell Count 5.7 X10^3/uL (4.5-11.0)
[2019-07-06 17:55] LABS: Hemoglobin A1C% w Est Avg Glu 5.2 % (4.0-6.0)
[2019-07-06 18:07] LABS: Alanine Aminotransferase 11 IU/L (<50); Albumin 4.3 g/dL (3.5-5.0); Albumin Globulin Ratio 1.2 (1.0-2.8); Alkaline Phosphatase 74 U/L (38-126); Aspartate Aminotransferase 22 IU/L (17-59); BUN Creatinine Ratio 14.6 (6-22); Bilirubin Total 0.5 mg/dL (0.2-1.3); Blood Urea Nitrogen 15 mg/dL (9-20); Calcium 9.4 mg/dL (8.4-10.2); Carbon Dioxide 28 mmol/L (22-32); Chloride 99 mmol/L (98-107); Estimated Glomerular Filt Rate > 60.0 mL/min (>60); Globulin 3.6 g/dL (1.7-4.1); Glucose 95 mg/dL (70-100); HEMOLYSIS < 15 (0-50); Potassium 4.6 mmol/L (3.4-5.1); Sodium 136 mmol/L (137-145); Total Protein 7.9 g/dL (6.3-8.2)
[2019-07-06 18:37] LABS: Prostate Specific Antigen 0.237 ng/mL (0.10-4.00)
== END ==
PROVIDERS: PCP Family Medicine; Referring Provider Family Medicine; Visit Provider Family Medicine
DX: Z12.5 Encounter for screening for malignant neoplasm of prostate (principal)
CPT/HCPCS: 36415; 80053; 83036; 84153; 85025

== ENCOUNTER → 2019-11-03 08:43 | Outpatient (CLI) | payer OTHER, MEDICAID, SELFPAY ==
--- NOTE | 2019-11-03 | DI.US.S_ITS ---
PROCEDURE: US ABDOMEN COMPLETE INDICATIONS: CIRRHOSIS TECHNIQUE: Real-time scanning was performed of the abdominal and retroperitoneal organs, with image documentation. COMPARISON: , CT, CT CHEST ABD PEL W CON, 12/23/2018, 5:13. , US, US ABDOMEN COMPLETE, 06/30/2019, 11:06. FINDINGS: Liver: Liver is normal in size. The liver demonstrates a nodular contour, which is better demonstrated on the prior CT. Gallbladder: The gallbladder is contracted, which limits its evaluation. Nonmobile stones can be seen within the gallbladder. There is a thickened gallbladder wall measuring 5 mm. No specific pericholecystic fluid is seen. The sonographic Heaton sign is negative. Biliary ducts: Intrahepatic bile ducts are not frankly dilated. The extrahepatic biliary ducts are dilated to 1 cm. Normal is 6-7 mm or less in diameter, or 10 mm or less post-cholecystectomy. Pancreas: Visualized portions of the pancreas are sonographically normal. Spleen: The spleen is enlarged, measuring 16.4 cm. Kidneys: The right kidney is not well seen. Kidneys are normal in size and echotexture. Right kidney measures 10.6 cm long; left kidney measures 12.7 cm long. No hydronephrosis or nephrolithiasis. No solid masses. Aorta: Visualized aorta is normal in caliber at less than 3 cm. Iliacs: Proximal common iliac arteries are normal in caliber at less than 2.5 cm. IVC: Intrahepatic inferior vena cava is patent. Miscellaneous: No free abdominal fluid. IMPRESSION: Abnormal appearing gallbladder, which is contracted. Nonmobile gallstones are seen and there is a thickened gallbladder wall. Please correlate with physical examination findings, patient presentation, and laboratory values. Biliary dilatation is seen. As clinically appropriate, an MRCP could be considered for further evaluation (assuming that there is no contraindication to MRI). Cirrhotic appearing liver. Splenomegaly. Dictated by: Jason Badillo M.D. on 11/03/2019 at 10:02 Approved by: Jason Badillo M.D. on 11/03/2019 at 10:05
== END ==
PROVIDERS: PCP Family Medicine; Referring Provider Internal Medicine Gastroenterology; Visit Provider Internal Medicine Gastroenterology
DX: R10.13 Epigastric pain (principal); K74.60 Unspecified cirrhosis of liver; K80.20 Calculus of gallbladder without cholecystitis without obstruction; K82.8 Other specified diseases of gallbladder; R16.1 Splenomegaly, not elsewhere classified
CPT/HCPCS: 76700

== ENCOUNTER → 2019-12-01 20:42 | Outpatient (CLI) | payer OTHER, MEDICAID, SELFPAY ==
--- NOTE | 2019-12-01 20:46 | DI.RAD.S_ITS ---
PROCEDURE: XR CERVICAL SPINE 4V OR 5V INDICATIONS: Progressive neck pain TECHNIQUE: 5 views of the cervical spine acquired. COMPARISON: CR, XR CERVICAL SPINE W OBL 4 VW, 09/03/2016, 15:31. FINDINGS: Bones: No fractures or dislocations to the C7 level. Oblique images demonstrate no bony foraminal stenoses. There is degenerative disc disease, [id number] at C4-C5, C5-C6 and C6-C7, mild at C3-C4. Bilateral facet arthropathy is present, most pronounced at C4-C5 and C5-C6 on the left. Oblique views demonstrate foraminal stenosis, [id number] C2-C3, C3-C4 and C4-C5 on the left and moderate foraminal stenosis at C3-C4 and C4-C5 on the right. Foraminal stenosis has increased since the last exam. Soft tissues: No prevertebral soft tissue swelling. IMPRESSION: 1. Multilevel degenerative disease and facet disease as described. 2. Bilateral foraminal stenosis are present. Dictated by: Shun Mcnair M.D. on 12/02/2019 at 17:40 Approved by: Shun Mcnair M.D. on 12/02/2019 at 17:44
== END ==
PROVIDERS: PCP Family Medicine; Referring Provider Physical Medicine & Rehabilitation; Visit Provider Physical Medicine & Rehabilitation
DX: M50.121 Cervical disc disorder at C4-C5 level with radiculopathy (principal); M48.02 Spinal stenosis, cervical region; M47.22 Other spondylosis with radiculopathy, cervical region
CPT/HCPCS: 72050

== ENCOUNTER → 2019-12-20 17:00 | Outpatient (CLI) | payer OTHER, MEDICAID, SELFPAY ==
--- NOTE | 2019-12-20 17:01 | DI.MRI.S_ITS ---
PROCEDURE: MR CERVICAL SPINE WO CON INDICATIONS: Cervical radiculopathy with history of testicular CA TECHNIQUE: Noncontrast sagittal T1 spin echo and T2 fast spin echo, sagittal STIR, foraminal oblique sagittal T2 fast spin echo, and axial gradient echo or T2 fast spin echo through the cervical spine. COMPARISON: [facility], CR, XR CERVICAL SPINE 4V OR 5V, 12/01/2019, 20:38. FINDINGS: Image quality: Excellent. Alignment and Curvature: There is trace retrolithesis of C3 on C4, C4 on C5. Bone Marrow: Marrow demonstrates normal overall signal. Mild reactive endplate changes are present at C4-5, C6-7. Spinal Cord: Visualized spinal cord has normal size and signal. No cerebellar tonsillar herniation. Paraspinous Soft Tissues: No paravertebral masses. Prevertebral soft tissues are normal in thickness. Moderate to severe multilevel disc dessication , most severe at C4-5, C5-6, C6-7. C2-C3: Mild disc bulge without spinal stenosis or foraminal narrowing. C3-C4: Mild disc bulge with severe spinal stenosis. Severe foraminal narrowing with uncovertebral hypertrophy. C4-C5: Mild disc bulge with severe spinal stenosis. Severe foraminal narrowing with uncovertebral hypertrophy. C5-C6: Mild disc bulge with moderate to severe spinal stenosis. Severe bilateral, right greater than left foraminal narrowing with uncovertebral hypertrophy. C6-C7: Mild disc bulge with moderate to severe spinal stenosis. Moderate to severe foraminal narrowing with uncovertebral hypertrophy. C7-T1: Minimal disc bulge without spinal stenosis. Moderate bilateral foraminal narrowing. IMPRESSION: 1. Multilevel degenerative changes. 2. Multilevel moderate to severe spinal stenosis secondary to disc bulge with contributing effect of uncovertebral arthropathy. 3. Multilevel severe foraminal narrowing most notable from C3-4 through C5-6 secondary to uncovertebral arthropathy. Dictated by: Saadia Cotton M.D. on 12/21/2019 at 12:00 Approved by: Saadia Cotton M.D. on 12/21/2019 at 12:20
== END ==
PROVIDERS: PCP Family Medicine; Referring Provider Physical Medicine & Rehabilitation; Visit Provider Physical Medicine & Rehabilitation
DX: M50.11 Cervical disc disorder with radiculopathy, high cervical region (principal); M47.22 Other spondylosis with radiculopathy, cervical region; M48.02 Spinal stenosis, cervical region; Z85.47 Personal history of malignant neoplasm of testis
CPT/HCPCS: 72141

== ENCOUNTER → 2020-01-10 12:30 | Outpatient (CLI) | payer OTHER, MEDICAID, SELFPAY ==
[2020-01-10 13:25] LABS: Erythrocyte Sedimentation Rate 65 MM/HR (0-15)
[2020-01-10 13:31] LABS: C-Reactive Protein Quant 2.5 mg/dL (<1.0)
== END ==
PROVIDERS: PCP Family Medicine; Referring Provider Internal Medicine Rheumatology; Visit Provider Internal Medicine Rheumatology
DX: L40.50 Arthropathic psoriasis, unspecified (principal)
CPT/HCPCS: 36415; 85651; 86140

== ENCOUNTER → 2020-03-01 14:51 | Outpatient (CLI) | payer OTHER, MEDICAID, SELFPAY ==
[2020-03-01 15:36] LABS: Hemoglobin A1C% w Est Avg Glu 5.5 % (4.0-6.0)
[2020-03-01 16:01] LABS: Alanine Aminotransferase 24 IU/L (<50); Albumin 4.4 g/dL (3.5-5.0); Albumin Globulin Ratio 1.2 (1.0-2.8); Alkaline Phosphatase 74 U/L (38-126); Aspartate Aminotransferase 31 IU/L (17-59); BUN Creatinine Ratio 9.8 (6-22); Bilirubin Total 0.6 mg/dL (0.2-1.3); Blood Urea Nitrogen 8 mg/dL (9-20); Calcium 9.6 mg/dL (8.4-10.2); Carbon Dioxide 33 mmol/L (22-32); Chloride 96 mmol/L (98-107); Estimated Glomerular Filt Rate > 60.0 mL/min (>60); Globulin 3.8 g/dL (1.7-4.1); Glucose 107 mg/dL (70-100); HEMOLYSIS < 15 (0-50); Magnesium 1.7 mg/dL (1.6-2.3); Potassium 3.8 mmol/L (3.4-5.1); Sodium 134 mmol/L (137-145); Total Protein 8.2 g/dL (6.3-8.2)
== END ==
PROVIDERS: PCP Family Medicine; Referring Provider Family Medicine; Visit Provider Family Medicine
DX: R18.8 Other ascites (principal)
CPT/HCPCS: 36415; 80053; 83036; 83735; 84443

== ENCOUNTER → 2020-03-28 10:12 | Outpatient (CLI) | payer OTHER, MEDICAID, SELFPAY ==
[2020-03-28 12:02] LABS: COVID19 -Nasal RAPID Negative (Negative)
== END ==
PROVIDERS: PCP Family Medicine; Visit Provider Physical Medicine & Rehabilitation
DX: Z01.812 Encounter for preprocedural laboratory examination (principal); Z20.828 Contact with and (suspected) exposure to other viral communicable diseases
CPT/HCPCS: 87635; C9803

== ENCOUNTER 2020-03-30 09:52 | Outpatient (CLI) | payer OTHER, MEDICAID, SELFPAY ==
[2020-03-30] VITALS (8 sets, daily range): BP systolic 135–153; BP diastolic 71–96; PULSE 56–67; RESP 12–20; TEMP 36.2; O2SAT 93–97
--- NOTE | 2020-03-30 09:53 | DI.RAD.S_ITS ---
PROCEDURE: PAIN C/T INTERLAMINAR INJECT INDICATIONS: T12-L1 translaminar ISAAC COMPARISON: [facility], XA, PAIN L/SI FACET INJ/BLK 1STL, 12/15/2018, 14:45. [facility], MR, MR THORACIC SPINE WO/W CON, 01/18/2019, 12:15. FINDINGS: Fluoroscopic spot filming was performed to verify placement of a spinal needle at the T12-L1 level, as labeled on the films. Appropriate location of the needle tip was confirmed by injection of iodinated contrast. IMPRESSION: Intraprocedural examination within normal limits. Dictated by: Jason Badillo M.D. on 03/30/2020 at 11:02 Approved by: Jason Badillo M.D. on 03/30/2020 at 11:02
[2020-03-30] MEDS: MIDAZOLAM 5 MG/5 ML VIAL IV (11:00)
[2020-03-30] MEDS: BUPIVACAINE 0.25% (PF) VIAL 2 ML INJ (11:00)
[2020-03-30] MEDS: fentaNYL 100 MCG/2 ML INJ 50 MCG IV (11:00)
[2020-03-30] MEDS: BETAMETHASONE 30 MG/5 ML MDV 6 MG INJ (11:04)
[2020-03-30] MEDS: DEXAMETHASONE 10 MG/ML VIAL 20 MG INJ (11:04)
[2020-03-30] MEDS: IOPAMIDOL 15 ML VIAL 3 ML INJ (11:04)
--- NOTE | 2020-03-30 11:12 | PM.PROC.IR.1 ---
Date/Time/Diagnoses Date of procedure: 03/30/20 Time of procedure: 11:12 Pre-procedure diagnosis: Thoracic stenosis with HNP Post-procedure diagnosis: same Procedure Notes Procedure: Fluoroscopic guided, contrast controlled T12/L1 translaminar epidural steroid injection with conscious sedation. Indications: Suhail is referred by Dr. Kinney for treatment of thoracic DDD/DJD with radiculopathy Physician: Remi Main Total Fluoroscopy time (seconds): 8 Total sedation minutes: 10 Complications: none Procedure in detail & Post-procedure care: DESCRIPTION OF PROCEDURE Fluoroscopic guided, contrast controlled T12/L1 translaminar epidural steroid injection with conscious sedation. Following review of allergy review potential side effects and complications, including, but not necessarily limited to, infection, allergic reaction, local tissue breakdown, temporary as well as permanent nerve injury, stroke, paralysis and possible , the patient indicated that they understood and agreed to proceed. An informed consent document was signed by the patient, witnessed by the nurse, and placed in the patient's chart. Additionally other treatment options including modalities, medications and physical therapy were reviewed with the patient. After review of previous anaesthesic history and IV conscious sedation the patient was deemed safe to proceed with today's procedure with IV conscious sedation as ASA class II designation. Safety time-out was performed to confirm patient ID, procedure to be performed and site of procedure. IV sedation was accomplished with a combination of 2mg of Versed and 50mcg of Fentanyl administered by the RN after DO order, titrated to patient comfort during the course of the procedure while the patient remained responsive to all verbal commands In the prone position, following sterile prep and drape of the thoracic region the T12/L1 translaminar space was identified fluoroscopically. The skin was anesthetized via 25 gauge 1.5inch needle with 1% lidocaine solution. At this point a 22gauge epidural needle was atraumatically introduced and advanced under fluoroscopic guidance into the region of the T12/L1 translaminar space depth was confirmed on lateral view. Radiographic data, including multiple fluoroscopic views of the thoracic spine, reveals spinal needle at the T12/L1 translaminar space. Lateral views then showed the placement of the needle in the epidural space. Subsequent view show contrast material flowing superiorly and inferiorly in the epidural space. No vascular or intrathecal uptake is observed. At this point using loss of resistance technique with saline and the epidural space was entered. This was confirmed followed negative aspiration and injection of approximately 1.5cc of Isovue 200 showed excellent epidural flow without vascular or intrathecal uptake. At this point, 1 cc of 1% lidocaine solution was admitted as a test dose and the patient was observed for an appropriate period of time without signs or symptoms of complications, including abdominal pain, shortness of breath, bilateral upper and lower extremity weakness, nausea and vomiting, prior to steroid injection. Subsequently, 3cc or 20mg of dexamethasone and 6mg of betamethasone was then injected without incident. The patient tolerated the procedure well without signs of complications and subsequently was transferred to the recovery room for further monitoring. The patient was then transferred to the recovery area with their observed for an appropriate time after the injection. Patient reported a VAS score of 7 prior to the procedure and post-procedure VAS of 2.
== END 2020-03-30 11:35 | disposition home or self-care (01) ==
LOC: RAD 09:52
PROVIDERS: PCP Family Medicine; Referring Provider Physical Medicine & Rehabilitation; Visit Provider Physical Medicine & Rehabilitation
DX: M48.04 Spinal stenosis, thoracic region (principal); M51.14 Intervertebral disc disorders with radiculopathy, thoracic region; M47.24 Other spondylosis with radiculopathy, thoracic region
CPT/HCPCS: 62321; 99152; J0702; J1100; J2250; J3010

== ENCOUNTER → 2020-04-07 13:37 | Outpatient (CLI) | payer OTHER, MEDICAID, SELFPAY ==
[2020-04-07 15:00] LABS: Alanine Aminotransferase 16 IU/L (<50); Albumin 4.3 g/dL (3.5-5.0); Albumin Globulin Ratio 1.3 (1.0-2.8); Alkaline Phosphatase 64 U/L (38-126); Aspartate Aminotransferase 25 IU/L (17-59); BUN Creatinine Ratio 12.3 (6-22); Bilirubin Total 0.5 mg/dL (0.2-1.3); Blood Urea Nitrogen 10 mg/dL (9-20); Calcium 9.4 mg/dL (8.4-10.2); Carbon Dioxide 32 mmol/L (22-32); Chloride 98 mmol/L (98-107); Estimated Glomerular Filt Rate > 60.0 mL/min (>60); Globulin 3.3 g/dL (1.7-4.1); Glucose 99 mg/dL (70-100); HEMOLYSIS < 15 (0-50); Potassium 3.7 mmol/L (3.4-5.1); Sodium 134 mmol/L (137-145); Total Protein 7.6 g/dL (6.3-8.2)
[2020-04-07 15:18] LABS: Free T4, Direct Thyroxine 1.06 ng/dL (0.78-2.19)
[2020-04-07 15:32] LABS: Thyroid Stimulating Hormone 3.46 uIU/mL (0.47-4.68)
== END ==
PROVIDERS: PCP Family Medicine; Referring Provider Family Medicine; Visit Provider Family Medicine
DX: K72.90 Hepatic failure, unspecified without coma (principal)
CPT/HCPCS: 36415; 80053; 84439; 84443

== ENCOUNTER → 2020-04-18 11:38 | Outpatient (CLI) | payer OTHER, MEDICAID, SELFPAY ==
--- NOTE | 2020-04-18 11:40 | DI.RAD.S_ITS ---
PROCEDURE: XR THORACIC SPINE 3V INDICATIONS: thoracic pain hx of testicular ca TECHNIQUE: 3 views of the thoracic spine were acquired. COMPARISON: [facility], , THORACIC SPINE 3 VIEWS, 02/12/2017, 17:00. FINDINGS: Bones: No fractures or dislocations. No suspicious bony lesions. Twelve pairs of ribs are noted, and appear intact where visualized. Soft tissues: No paravertebral stripe thickening. IMPRESSION: Bridging osteophytes are seen along the thoracic spine and there is [id number] degenerative disc disease but no osteolytic or blastic lesion is found and no paravertebral soft tissue thickening or adenopathy is seen. Dictated by: Ajit York M.D. on 04/18/2020 at 15:59 Approved by: Ajit York M.D. on 04/18/2020 at 15:59
== END ==
PROVIDERS: PCP Family Medicine; Referring Provider Physical Medicine & Rehabilitation; Visit Provider Physical Medicine & Rehabilitation
DX: M51.24 Other intervertebral disc displacement, thoracic region (principal); M47.812 Spondylosis without myelopathy or radiculopathy, cervical region; M25.78 Osteophyte, vertebrae; Z85.47 Personal history of malignant neoplasm of testis
CPT/HCPCS: 72072; 99213

== ENCOUNTER → 2020-06-07 14:22 | Outpatient (CLI) | payer OTHER, MEDICAID, SELFPAY ==
[2020-06-07 16:10] LABS: Add Manual Diff / Slide Review NO; Basophils Absolute Auto 0 /uL (0-100); Basophils Percent Auto 0.2 % (0-2); Eosinophils Absolute Auto 100 /uL (0-450); Hematocrit 36.4 % (41-53); Hemoglobin 12.1 g/dL (13.5-17.5); Lymphocytes Absolute Auto 1500 /uL (1100-4500); Lymphocytes Percent Auto 23.2 % (25-40); Mean Corpuscular HGB Conc 33.3 % (30-36); Mean Corpuscular Hemoglobin 30.4 PG (26-34); Mean Corpuscular Volume 91.2 fL (80-100); Monocytes Absolute Auto 600 /uL (0-900); Monocytes Percent Auto 9.6 % (3-14); Neutrophils Absolute Auto 4400 /uL (1500-7000); Platelet Count 86 X10^3/uL (150-400); Red Cell Distribution Width 14.3 % (11.6-14.8); White Blood Cell Count 6.6 X10^3/uL (4.5-11.0)
[2020-06-07 16:25] LABS: Alanine Aminotransferase 14 IU/L (<50); Albumin 4.3 g/dL (3.5-5.0); Albumin Globulin Ratio 1.4 (1.0-2.8); Alkaline Phosphatase 64 U/L (38-126); Aspartate Aminotransferase 25 IU/L (17-59); BUN Creatinine Ratio 11.9 (6-22); Bilirubin Total 0.5 mg/dL (0.2-1.3); Blood Urea Nitrogen 10 mg/dL (9-20); C-Reactive Protein Quant 0.6 mg/dL (<1.0); Calcium 9.5 mg/dL (8.4-10.2); Carbon Dioxide 30 mmol/L (22-32); Chloride 99 mmol/L (98-107); Estimated Glomerular Filt Rate > 60.0 mL/min (>60); Glucose 120 mg/dL (70-100); HEMOLYSIS < 15 (0-50); Potassium 3.9 mmol/L (3.4-5.1); Sodium 135 mmol/L (137-145); Total Protein 7.3 g/dL (6.3-8.2)
[2020-06-07 16:36] LABS: Erythrocyte Sedimentation Rate 26 MM/HR (0-15)
== END ==
PROVIDERS: PCP Family Medicine; Referring Provider Internal Medicine Rheumatology; Visit Provider Internal Medicine Rheumatology
DX: L40.50 Arthropathic psoriasis, unspecified (principal)
CPT/HCPCS: 36415; 80053; 85025; 85651; 86140

== ENCOUNTER → 2020-07-17 13:57 | Outpatient (CLI) | payer OTHER, MEDICAID, SELFPAY ==
[2020-07-17 14:26] LABS: Add Manual Diff / Slide Review NO; Basophils Absolute Auto 0 /uL (0-100); Basophils Percent Auto 0.4 % (0-2); Eosinophils Absolute Auto 100 /uL (0-450); Eosinophils Percent Auto 1.5 % (2-4); Hematocrit 37.1 % (41-53); Hemoglobin 12.5 g/dL (13.5-17.5); Lymphocytes Absolute Auto 2200 /uL (1100-4500); Lymphocytes Percent Auto 35.6 % (25-40); Mean Corpuscular HGB Conc 33.6 % (30-36); Mean Corpuscular Hemoglobin 30.4 PG (26-34); Mean Corpuscular Volume 90.4 fL (80-100); Monocytes Absolute Auto 800 /uL (0-900); Monocytes Percent Auto 12.8 % (3-14); Neutrophils Absolute Auto 3100 /uL (1500-7000); Neutrophils Percent Auto 49.7 % (50-75); Platelet Count 103 X10^3/uL (150-400); Red Cell Distribution Width 13.8 % (11.6-14.8); White Blood Cell Count 6.2 X10^3/uL (4.5-11.0)
[2020-07-17 14:43] LABS: Alanine Aminotransferase 15 IU/L (<50); Albumin 4.7 g/dL (3.5-5.0); Albumin Globulin Ratio 1.5 (1.0-2.8); Alkaline Phosphatase 64 U/L (38-126); Aspartate Aminotransferase 29 IU/L (17-59); Bilirubin Total 0.6 mg/dL (0.2-1.3); Blood Urea Nitrogen 8 mg/dL (9-20); Calcium 9.8 mg/dL (8.4-10.2); Carbon Dioxide 29 mmol/L (22-32); Chloride 101 mmol/L (98-107); Estimated Glomerular Filt Rate > 60.0 mL/min (>60); Globulin 3.2 g/dL (1.7-4.1); Glucose 106 mg/dL (70-100); HEMOLYSIS < 15 (0-50); Potassium 3.9 mmol/L (3.4-5.1); Sodium 138 mmol/L (137-145); Total Protein 7.9 g/dL (6.3-8.2)
[2020-07-17 14:57] LABS: Free T4, Direct Thyroxine 1.03 ng/dL (0.78-2.19)
[2020-07-17 15:12] LABS: Thyroid Stimulating Hormone 5.01 uIU/mL (0.47-4.68)
== END ==
PROVIDERS: PCP Family Medicine; Referring Provider Family Medicine; Visit Provider Family Medicine
DX: B35.1 Tinea unguium (principal); B35.9 Dermatophytosis, unspecified; D69.6 Thrombocytopenia, unspecified; E03.9 Hypothyroidism, unspecified; I10 Essential (primary) hypertension
CPT/HCPCS: 36415; 80053; 83036; 84439; 84443; 85025

== ENCOUNTER → 2021-06-28 13:43 | Outpatient (CLI) | payer OTHER, MEDICAID, SELFPAY ==
[2021-06-28 15:46] LABS: INR 1.2 (0.9-1.3); Prothrombin Time 13.9 SECONDS (10.1-12.7)
[2021-06-28 15:51] LABS: Alanine Aminotransferase 14 IU/L (<50); Albumin 4.7 g/dL (3.5-5.0); Albumin Globulin Ratio 1.2 (1.0-2.8); Alkaline Phosphatase 68 U/L (38-126); Aspartate Aminotransferase 26 IU/L (17-59); BUN Creatinine Ratio 13.4 (6-22); Bilirubin Total 0.5 mg/dL (0.2-1.3); Blood Urea Nitrogen 11 mg/dL (9-20); Calcium 9.9 mg/dL (8.4-10.2); Carbon Dioxide 29 mmol/L (22-32); Chloride 105 mmol/L (98-107); Estimated Glomerular Filt Rate > 60.0 mL/min (>60); Globulin 3.8 g/dL (1.7-4.1); Glucose 106 mg/dL (70-100); HEMOLYSIS < 15 (0-50); Potassium 3.9 mmol/L (3.4-5.1); Sodium 141 mmol/L (137-145); Total Protein 8.5 g/dL (6.3-8.2)
[2021-06-28 16:41] LABS: Free T4, Direct Thyroxine 1.15 ng/dL (0.78-2.19)
[2021-06-28 16:55] LABS: TSH w/ Reflex to FT4 1.79 uIU/mL (0.47-4.68)
== END ==
PROVIDERS: PCP Family Medicine; Referring Provider Family Medicine; Visit Provider Family Medicine
DX: M51.24 Other intervertebral disc displacement, thoracic region (principal); E03.9 Hypothyroidism, unspecified; Z01.818 Encounter for other preprocedural examination
CPT/HCPCS: 36415; 80053; 84439; 84443; 85610

== ENCOUNTER → 2021-10-12 17:20 | Outpatient (CLI) | payer OTHER, MEDICAID, SELFPAY ==
[2021-10-12 18:31] LABS: Free T4, Direct Thyroxine 1.05 ng/dL (0.78-2.19)
[2021-10-12 18:45] LABS: TSH w/ Reflex to FT4 4.05 uIU/mL (0.47-4.68)
[2021-10-12 18:50] LABS: Ferritin 82 ng/mL (18-464)
[2021-10-12 19:04] LABS: Vitamin B12 917 pg/mL (239-931)
== END ==
PROVIDERS: PCP Family Medicine; Referring Provider Family Medicine; Visit Provider Family Medicine
DX: D64.9 Anemia, unspecified (principal); E03.9 Hypothyroidism, unspecified
CPT/HCPCS: 36415; 82607; 82728; 84439; 84443

== ENCOUNTER → 2022-08-19 11:37 | Outpatient (CLI) | payer OTHER, MEDICAID, SELFPAY ==
[2022-08-19 12:19] LABS: Add Manual Diff / Slide Review NO; Basophils Absolute Auto 0 /uL (0-100); Basophils Percent Auto 0.4 % (0-2); Eosinophils Absolute Auto 100 /uL (0-450); Eosinophils Percent Auto 1.6 % (2-4); Hematocrit 37.5 % (41-53); Hemoglobin 12.8 g/dL (13.5-17.5); Lymphocytes Absolute Auto 1700 /uL (1100-4500); Lymphocytes Percent Auto 38.7 % (25-40); Mean Corpuscular HGB Conc 34.1 % (30-36); Mean Corpuscular Hemoglobin 29.5 PG (26-34); Mean Corpuscular Volume 86.4 fL (80-100); Monocytes Absolute Auto 500 /uL (0-900); Monocytes Percent Auto 10.2 % (3-14); Neutrophils Absolute Auto 2200 /uL (1500-7000); Neutrophils Percent Auto 49.1 % (50-75); Platelet Count 108 X10^3/uL (150-400); Red Blood Cell Count 4.34 X10^6/uL (4.5-5.9); Red Cell Distribution Width 14.3 % (11.6-14.8); White Blood Cell Count 4.4 X10^3/uL (4.5-11.0)
[2022-08-19 12:33] LABS: Alanine Aminotransferase 16 IU/L (<50); Albumin 4.7 g/dL (3.5-5.0); Albumin Globulin Ratio 1.2 (1.0-2.8); Alkaline Phosphatase 82 U/L (38-126); Aspartate Aminotransferase 27 IU/L (17-59); Bilirubin Total 0.4 mg/dL (0.2-1.3); Blood Urea Nitrogen 7 mg/dL (9-20); Calcium 9.6 mg/dL (8.4-10.2); Carbon Dioxide 32 mmol/L (22-32); Chloride 98 mmol/L (98-107); Cholesterol 218 mg/dL (140-199); Estimated Glomerular Filt Rate > 60 mL/min (>60); Globulin 3.8 g/dL (1.7-4.1); Glucose 108 mg/dL (80-110); HDL Cholesterol 35 mg/dL (40-60); HEMOLYSIS < 15 (0-50); LDL Cholesterol Calculated 137 mg/dL (<100); Potassium 4.6 mmol/L (3.4-5.1); Sodium 138 mmol/L (137-145); Total Protein 8.5 g/dL (6.3-8.2); Triglycerides 229 mg/dL (35-150)
[2022-08-19 13:58] LABS: Thyroid Stimulating Hormone 2.49 uIU/mL (0.47-4.68)
[2022-08-20 17:28] LABS: Free T4, Direct Thyroxine 1.23 ng/dL (0.78-2.19)
== END ==
PROVIDERS: PCP Family Medicine; Referring Provider Family Medicine; Visit Provider Family Medicine
DX: M20.11 Hallux valgus (acquired), right foot (principal); M20.12 Hallux valgus (acquired), left foot; I10 Essential (primary) hypertension; E03.9 Hypothyroidism, unspecified
CPT/HCPCS: 36415; 80053; 80061; 84439; 84443; 85025

== ENCOUNTER → 2022-12-27 14:42 | Outpatient (CLI) | payer OTHER, MEDICAID, SELFPAY ==
[2022-12-27 15:52] LABS: Alanine Aminotransferase 16 IU/L (<50); Albumin 4.6 g/dL (3.5-5.0); Albumin Globulin Ratio 1.4 (1.0-2.8); Alkaline Phosphatase 62 U/L (38-126); Aspartate Aminotransferase 28 IU/L (17-59); BUN Creatinine Ratio 9.4 (6-22); Bilirubin Total 0.6 mg/dL (0.2-1.3); Blood Urea Nitrogen 8 mg/dL (9-20); Calcium 9.3 mg/dL (8.4-10.2); Carbon Dioxide 29 mmol/L (22-32); Chloride 97 mmol/L (98-107); Estimated Glomerular Filt Rate > 60 mL/min (>60); Globulin 3.4 g/dL (1.7-4.1); Glucose 85 mg/dL (80-110); HEMOLYSIS < 15 (0-50); Potassium 4.6 mmol/L (3.4-5.1); Sodium 133 mmol/L (137-145)
[2022-12-27 16:08] LABS: Free T4, Direct Thyroxine 0.86 ng/dL (0.78-2.19)
[2022-12-27 16:22] LABS: Thyroid Stimulating Hormone 4.49 uIU/mL (0.47-4.68)
== END ==
PROVIDERS: PCP Family Medicine; Referring Provider Family Medicine; Visit Provider Family Medicine
DX: E03.9 Hypothyroidism, unspecified (principal); I10 Essential (primary) hypertension
CPT/HCPCS: 36415; 80053; 84439; 84443

== ENCOUNTER → 2023-02-17 14:33 | Oncology outpatient (ONC) | payer OTHER, MEDICAID, SELFPAY ==
[2018-03-30 12:54] LABS: Add Manual Diff / Slide Review NO; Basophils Percent Auto 0.6 % (0-2); Eosinophils Percent Auto 1.1 % (2-4); Hematocrit 36.4 % (41-53); Hemoglobin 12.3 g/dL (13.5-17.5); Mean Corpuscular HGB Conc 33.9 % (30-36); Mean Corpuscular Hemoglobin 30.5 PG (26-34); Mean Corpuscular Volume 90.1 fL (80-100); Monocytes Percent Auto 8.6 % (3-14); Neutrophils Absolute Auto 5500 /uL (3000-5900); Neutrophils Percent Auto 70.7 % (50-75); Platelet Count 94 X10^3/uL (150-400); Red Blood Cell Count 4.04 X10^6/uL (4.5-5.9); Red Cell Distribution Width 13.7 % (11.6-14.8); White Blood Cell Count 7.7 X10^3/uL (4.5-11.0)
[2018-03-30 13:08] LABS: Alanine Aminotransferase 11 IU/L (21-72); Albumin 4.3 g/dL (3.5-5.0); Alkaline Phosphatase 87 U/L (38-126); Aspartate Aminotransferase 17 IU/L (17-59); BUN Creatinine Ratio 12.9 (6-22); Bilirubin Total 0.5 mg/dL (0.2-1.3); Blood Urea Nitrogen 9 mg/dL (9-20); Calcium 9.5 mg/dL (8.4-10.2); Carbon Dioxide 27 mmol/L (22-32); Chloride 101 mmol/L (98-107); Estimated Glomerular Filt Rate > 60.0 mL/min (>60); Globulin 4.1 g/dL (1.7-4.1); Glucose 128 mg/dL (70-100); HEMOLYSIS < 15 (0-50); Lactate Dehydrogenase 275 U/L (313-618); Potassium 4.2 mmol/L (3.4-5.1); Sodium 140 mmol/L (137-145); Total Protein 8.4 g/dL (6.3-8.2)
[2018-03-30 13:24] LABS: HCG Quantitative /Beta subunit < 2.39 mIU/mL (-2.40)
[2018-04-02 13:49] LABS: Alpha Fetoprotein 7.2 ng/mL (< 6.1)
--- NOTE | 2018-04-06 10:42 | ONC.PN ---
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 He initially presented with a large 7 cm left testicular mass and underwent orchiectomy in April 2016. It showed pure seminoma pT1. He did not receive adjuvant chemotherapy. About 10 months later, he presented with back pain in mid thoracic level. CT scan on 03/10/2017 showed a large left para-spinal mass 4.3 x 4.1 cm. Biopsy on 03/25/2017 showed positive for metastatic seminoma. He received a course of BEPx4 cycles with which he had excessive toxicity and multiple hospitalization and rehab for complications. He needed dose reduction after cycle 1 and eventually cycle 4 was given incomplete, completed in June 2017. Post chemotherapy CT scan on 09/03/2017 showed persistent mass and para-spinal location 3.1 x 2.4 cm, but on PET-CT the mass was not FDG avid with maximum SUV only 2.[address] scan of the chest abdomen pelvis with contrast on 01/05/2018. It showed continued decrease in size of abnormal soft tissue adjacent to the descending thoracic aorta, currently 2.5 x 1.9 cm consistent with resolving metastatic disease. Other findings include nodular appearance of liver, consistent with cirrhosis and splenomegaly. Additional findings include relatively prominent gynecomastia, coronary artery calcifications, gallstones, diverticulosis, and of bony degenerative changes. On 03/30/2018, patient underwent surveillance CT scan of the chest abdomen pelvis. The scan showed no evidence of active or progressive metastatic disease. The abnormal para-aortic soft tissue adjacent to the descending thoracic aorta decreased since 05/23/2017. There is evidence of cirrhosis of liver and cholelithiasis. He is still having back pain. It is right in the middle of the spine, the same location as has always been for the past 1.5 years. When he is working in the yard, the pain is 8/10, and he has to take a break. He is taking Hydromorphone 2 mg prn for pain control. He gets tired. He has psariatic arthritis, and degenerative disease, and fibromyalgia. He is taking Cosentix. He denies shortness of breath and denies cough. - Additional ROS All systems PM: reviewed and no additional remarkable complaints except as stated Home Medications and Allergies Home Medications Medication Instructions Recorded Confirmed Type secukinumab [Cosentyx Pen (2 Pens)] 01/12/18 03/30/18 History acyclovir 400 mg tablet 400 mg PO TID #30 tab 03/30/18 04/06/18 Rx gabapentin 100 mg capsule 300 mg PO DAILY #90 cap 03/30/18 04/06/18 Rx oxycodone 10 mg tablet 10 mg PO Q4-6H PRN #60 tab MDD 20 03/30/18 04/06/18 Rx mg polyethylene glycol 3350 8.5 gram 17 gram PO DAILY 03/30/18 04/06/18 History oral powder packet Allergies Allergy/AdvReac Type Severity Reaction Status Date / Time No Known Drug Allergies Allergy Verified 03/30/18 10:59 Exam Vital signs: Last Vital Signs Temp 98.6 F 04/06/18 10:54 Pulse 80 04/06/18 10:54 Resp 19 04/06/18 10:54 BP 134/87 04/06/18 10:54 Pulse Ox 97 04/06/18 10:54 ECOG 1 Narrative: Constitutional: WDWN, NAD, average body habitus, well groomed, pleasant and cooperative. HEENT: NCAT, EOMI, PERRLA, anicteric sclera, no hearing difficulty; Oral mucus membrane moist and without ulcers. Neck: Supple, symmetrical, and tracheal midline; No palpable thyromegaly and no palpable lymph nodes. Respiratory: No use of accessory muscles. Clear to auscultation, and no wheezes or rales or rubs. Cardiovascular: Regular rate and rhythm, S1 and S2 normal, no murmurs gallops or rubs. No JVD. No pitting edema of lower extremities. Abdomen: Soft, nontender, non-distended, bowel sounds normal, no palpable organomegaly, no hernia, no palpable masses. Lower extremities: No palpable pedal edema. Lymphatic: no palpable lymph nodes in the neck, axillae, or groins. Musculoskeletal: normal gait and station, no clubbing, no cyanosis, no pitting edema. tenderness at the middle of back noted. Skin: no rashes, no ulcers, no petechiae Neurological: Awake and alert and oriented x3. CN II-XII grossly intact. No focal motor or sensory deficit. Psychiatric: Good judgment, good insight, normal affect, normal thought process, cooperative, no depression, no anxiety. Results - Labs Laboratory Last Values WBC 7.7 X10^3/uL (4.5-11.0) 03/30/18 12:39 RBC 4.04 X10^6/uL (4.5-5.9) L 03/30/18 12:39 Hgb 12.3 g/dL (13.5-17.5) L 03/30/18 12:39 Hct 36.4 % (41-53) L 03/30/18 12:39 MCV 90.1 fL (80-100) 03/30/18 12:39 MCH 30.5 PG (26-34) 03/30/18 12:39 MCHC 33.9 % (30-36) 03/30/18 12:39 RDW 13.7 % (11.6-14.8) 03/30/18 12:39 Plt Count 94 X10^3/uL (150-400) L 03/30/18 12:39 Neut % (Auto) 70.7 % (50-75) 03/30/18 12:39 Lymph % (Auto) 19.0 % (25-40) L 03/30/18 12:39 [place] % (Auto) 8.6 % (3-14) 03/30/18 12:39 Eos % (Auto) 1.1 % (2-4) L 03/30/18 12:39 Baso % (Auto) 0.6 % (0-2) 03/30/18 12:39 Neut # (Auto) 5500 /uL (2396-6599) 03/30/18 12:39 Sodium 140 mmol/L (137-145) 03/30/18 12:39 Potassium 4.2 mmol/L (3.4-5.1) 03/30/18 12:39 Chloride 101 mmol/L (98-107) 03/30/18 12:39 Carbon Dioxide 27 mmol/L (22-32) 03/30/18 12:39 BUN 9 mg/dL (9-20) 03/30/18 12:39 Creatinine 0.70 mg/dL (0.66-1.25) 03/30/18 12:39 Estimated GFR > 60.0 mL/min (>60) 03/30/18 12:39 BUN/Creatinine Ratio 12.9 (6-22) 03/30/18 12:39 Glucose 128 mg/dL (70-100) H 03/30/18 12:39 Calcium 9.5 mg/dL (8.4-10.2) 03/30/18 12:39 Total Bilirubin 0.5 mg/dL (0.2-1.3) 03/30/18 12:39 AST 17 IU/L (17-59) 03/30/18 12:39 ALT 11 IU/L (21-72) L 03/30/18 12:39 Alkaline Phosphatase 87 U/L (38-126) 03/30/18 12:39 Lactate Dehydrogenase 275 U/L (313-618) L 03/30/18 12:39 Total Protein 8.4 g/dL (6.3-8.2) H 03/30/18 12:39 Albumin 4.3 g/dL (3.5-5.0) 03/30/18 12:39 Globulin 4.1 g/dL (1.7-4.1) 03/30/18 12:39 Albumin/Globulin Ratio 1.0 (1.0-2.8) 03/30/18 12:39 Alpha Fetoprotein 7.2 ng/mL (< 6.1) H 03/30/18 12:39 HCG, Quant < 2.39 mIU/mL (-2.40) 03/30/18 12:39 Assessment and Plan (1) Malignant neoplasm of testis Problem details: Metastatic testicular seminoma, good risk prognosis, status post BEP x4 ending June 2017. Assessment: I reviewed the CT scan results as well as the laboratory tests. The CT scan showed no evidence of metastasis OR disease recurrence. There are no bone changes. I talked with the patient that as far as seminoma is concerned, I will continue current active surveillance. I will obtain a CT scan of the chest abdomen pelvis in 3 months. Given the lack of imaging abnormalities, I do not think that the back pain is related to the underlying diagnosis of seminoma at this moment. I encouraged the patient to talk with his primary care provider as well as get a orthopedic physician to evaluate. Patient voiced understanding. Plan: 1. CT CAP w/contrast in 3 months 2. RTC after scan, CBC, CMP, LDH, AFP, BHCG
[2018-04-06 10:54] VITALS: BP 134/87; PULSE 80; RESP 19; TEMP 37; O2SAT 97
--- NOTE | 2018-07-13 15:08 | ONC.PN ---
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 He initially presented with a large 7 cm left testicular mass and underwent orchiectomy in April 2016. It showed pure seminoma pT1. He did not receive adjuvant chemotherapy. About 10 months later, he developed back pain and CT scan on 03/10/2017 showed a large left para-spinal mass 4.3 x 4.1 cm. Biopsy on 03/25/2017 showed positive for metastatic seminoma. He received a course of BEPx4 cycles with which he had excessive toxicity and multiple hospitalization and rehab for complications.He needed dose reduction after cycle 1 and eventually cycle 4 was given incomplete, completed in June 2017. There after patient has been on active surveillance with CT scan every [address] scan from August, December, and March of 2018 showed continued decrease of the retroperitoneal lymph nodes. Most recent CT scan was obtained on 07/06/2018 and it showed stable examination without specific evidence for active metastatic disease. Cirrhosis of the liver was again was noted. Clinically patient is having lots of back pain especially to the right side of the lower back. No shortness of breath and no cough. He does not have tingling or numbing of his legs. He is now taking oxycodone 10 mg daily two a day. Patient now is being followed by orthopedics (Dr. Dias) as well as pain medicine (Dr. Remi Main). He underwent MRI of lower back. He is schedule to see Dr. Main on 07/31/2018. - Patient Self-Reported Symptoms SR Musculoskeletal issues: Joint pain or swelling, Muscle weakness - Additional ROS All systems PM: reviewed and no additional remarkable complaints except as stated Home Medications and Allergies Home Medications Medication Instructions Recorded Confirmed Type secukinumab [Cosentyx Pen (2 Pens)] 01/12/18 04/27/18 History gabapentin 100 mg capsule 300 mg PO DAILY #90 cap 03/30/18 07/13/18 Rx polyethylene glycol 3350 8.5 gram 17 gram PO DAILY 03/30/18 07/13/18 History oral powder packet oxycodone 10 mg tablet 10 mg PO Q4-6H PRN #60 tab MDD 20 06/22/18 07/13/18 Rx mg celecoxib [Celebrex] 200 mg PO DAILY 07/13/18 07/13/18 History Allergies Allergy/AdvReac Type Severity Reaction Status Date / Time No Known Drug Allergies Allergy Verified 04/27/18 12:21 Exam Vital signs: Last Vital Signs Temp 97.2 F L 07/13/18 15:14 Pulse 60 07/13/18 15:14 Resp 18 07/13/18 15:14 BP 127/80 07/13/18 15:14 Pulse Ox 97 07/13/18 15:14 ECOG 1 Narrative: Constitutional: WDWN, NAD, average body habitus, well groomed, pleasant and cooperative. HEENT: NCAT, EOMI, PERRLA, anicteric sclera, no hearing difficulty; Oral mucus membrane moist and without ulcers. Neck: Supple, symmetrical, and tracheal midline; No palpable thyromegaly and no palpable lymph nodes. Respiratory: No use of accessory muscles. Clear to auscultation, and no wheezes or rales. Cardiovascular: Regular rate and rhythm, S1 and S2 normal, no murmurs gallops or rubs. No JVD. No pitting edema of lower extremities. Abdomen: Soft, nontender, non-distended, bowel sounds normal, no palpable organomegaly, no hernia, no palpable masses. Lower extremities: No palpable pedal edema. Lymphatic: no palpable lymph nodes in the neck, axillae, or groins. Neurological: Awake and alert and oriented x3. CN II-XII grossly intact. No focal motor or sensory deficit. Psychiatric: Good judgment, good insight, normal affect, normal thought process, cooperative, no depression, no anxiety. Results - Labs Laboratory Last Values WBC 5.9 X10^3/uL (4.5-11.0) 07/13/18 16: RBC 3.76 X10^6/uL (4.5-5.9) L 07/13/18 16:17 Hgb 11.3 g/dL (13.5-17.5) L 07/13/18 16:17 Hct 33.2 % (41-53) L 07/13/18 16:17 MCV 88.2 fL (80-100) 07/13/18 16:17 MCH 30.0 PG (26-34) 07/13/18 16:17 MCHC 34.1 % (30-36) 07/13/18 16:17 RDW 13.7 % (11.6-14.8) 07/13/18 16:17 Plt Count 93 X10^3/uL (150-400) L 07/13/18 16:17 Neut % (Auto) 60.3 % (50-75) 07/13/18 16:17 Lymph % (Auto) 24.9 % (25-40) L 07/13/18 16:17 [place] % (Auto) 12.2 % (3-14) 07/13/18 16:17 Eos % (Auto) 1.5 % (2-4) L 07/13/18 16:17 Baso % (Auto) 1.1 % (0-2) 07/13/18 16:17 Neut # (Auto) 3600 /uL (4258-3587) 07/13/18 16:17 Lymph # (Auto) 1500 /uL (6969-7766) 07/13/18 16:17 [place] # (Auto) 700 /uL (0-900) 07/13/18 16:17 Eos # (Auto) 100 /uL (0-450) 07/13/18 16:17 Baso # (Auto) 100 /uL (0-100) 07/13/18 16:17 Sodium 136 mmol/L (137-145) L 07/13/18 16:17 Potassium 4.2 mmol/L (3.4-5.1) 07/13/18 16:17 Chloride 101 mmol/L (98-107) 07/13/18 16:17 Carbon Dioxide 25 mmol/L (22-32) 07/13/18 16:17 BUN 17 mg/dL (9-20) 07/13/18 16:17 Creatinine 0.70 mg/dL (0.66-1.25) 07/13/18 16:17 Estimated GFR > 60.0 mL/min (>60) 07/13/18 16:17 BUN/Creatinine Ratio 24.3 (6-22) H 07/13/18 16:17 Glucose 88 mg/dL (70-100) 07/13/18 16:17 Calcium 9.3 mg/dL (8.4-10.2) 07/13/18 16:17 Total Bilirubin 0.6 mg/dL (0.2-1.3) 07/13/18 16:17 AST 18 IU/L (17-59) 07/13/18 16:17 ALT 13 IU/L (21-72) L 07/13/18 16:17 Alkaline Phosphatase 85 U/L (38-126) 07/13/18 16:17 Lactate Dehydrogenase 296 U/L (313-618) L 07/13/18 16:17 Total Protein 8.2 g/dL (6.3-8.2) 07/13/18 16:17 Albumin 4.3 g/dL (3.5-5.0) 07/13/18 16:17 Globulin 3.9 g/dL (1.7-4.1) 07/13/18 16:17 Albumin/Globulin Ratio 1.1 (1.0-2.8) 07/13/18 16:17 Alpha Fetoprotein 7.2 ng/mL (< 6.1) H 03/30/18 12:39 HCG, Quant < 2.39 mIU/mL (-2.40) 07/13/18 16:17 Assessment and Plan (1) Malignant neoplasm of testis Problem details: Metastatic testicular seminoma, good risk prognosis, status post BEP x4 ending June 2017. Assessment: I reviewed the CT scan results as well as the laboratory tests. The CT scan showed no evidence of metastasis OR disease recurrence. There are no bone changes. I talked with the patient that as far as seminoma is concerned, I will continue current active surveillance. I will obtain a CT scan of the chest abdomen pelvis in 3 months. Plan: 1. CT CAP w/contrast in 3 months 2. RTC after scan, CBC, CMP, LDH, AFP, BHCG
[2018-07-13 15:14] VITALS: BP 127/80; PULSE 60; RESP 18; TEMP 36.2; O2SAT 97
[2018-07-13 16:35] LABS: Add Manual Diff / Slide Review NO; Basophils Absolute Auto 100 /uL (0-100); Basophils Percent Auto 1.1 % (0-2); Eosinophils Absolute Auto 100 /uL (0-450); Eosinophils Percent Auto 1.5 % (2-4); Hematocrit 33.2 % (41-53); Hemoglobin 11.3 g/dL (13.5-17.5); Lymphocytes Absolute Auto 1500 /uL (1100-4500); Lymphocytes Percent Auto 24.9 % (25-40); Mean Corpuscular HGB Conc 34.1 % (30-36); Mean Corpuscular Volume 88.2 fL (80-100); Monocytes Absolute Auto 700 /uL (0-900); Monocytes Percent Auto 12.2 % (3-14); Neutrophils Absolute Auto 3600 /uL (1500-7000); Neutrophils Percent Auto 60.3 % (50-75); Platelet Count 93 X10^3/uL (150-400); Red Blood Cell Count 3.76 X10^6/uL (4.5-5.9); Red Cell Distribution Width 13.7 % (11.6-14.8); White Blood Cell Count 5.9 X10^3/uL (4.5-11.0)
[2018-07-13 17:12] LABS: Alanine Aminotransferase 13 IU/L (21-72); Albumin 4.3 g/dL (3.5-5.0); Albumin Globulin Ratio 1.1 (1.0-2.8); Alkaline Phosphatase 85 U/L (38-126); Aspartate Aminotransferase 18 IU/L (17-59); BUN Creatinine Ratio 24.3 (6-22); Bilirubin Total 0.6 mg/dL (0.2-1.3); Blood Urea Nitrogen 17 mg/dL (9-20); Calcium 9.3 mg/dL (8.4-10.2); Carbon Dioxide 25 mmol/L (22-32); Chloride 101 mmol/L (98-107); Estimated Glomerular Filt Rate > 60.0 mL/min (>60); Globulin 3.9 g/dL (1.7-4.1); Glucose 88 mg/dL (70-100); HEMOLYSIS < 15 (0-50); Lactate Dehydrogenase 296 U/L (313-618); Potassium 4.2 mmol/L (3.4-5.1); Sodium 136 mmol/L (137-145); Total Protein 8.2 g/dL (6.3-8.2)
[2018-07-13 17:29] LABS: HCG Quantitative /Beta subunit < 2.39 mIU/mL (-2.40)
[2018-07-16 16:20] LABS: Alpha Fetoprotein 5.7 ng/mL (< 6.1)
[2018-09-10 11:12] VITALS: BP 146/79; PULSE 62; RESP 18; TEMP 37; O2SAT 98
--- NOTE | 2018-09-10 11:24 | P.PNONC_ITS ---
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 He initially presented with a large 7 cm left testicular mass and underwent orchiectomy in April 2016. It showed pure seminoma pT1. He did not receive adjuvant chemotherapy. About 10 months later, he developed back pain and CT scan on 03/10/2017 showed a large left para-spinal mass 4.3 x 4.1 cm. Biopsy on 03/25/2017 showed positive for metastatic seminoma. He received a course of BEPx4 cycles with which he had excessive toxicity and multiple hospitalization and rehab for complications.He needed dose reduction after cycle 1 and eventually cycle 4 was given incomplete, completed in June 2017. There after patient has been on active surveillance with CT scan every [address] scan from August, December, and March of 2018 showed continued decrease of the retroperitoneal lymph nodes. Most recent CT scan was obtained on 07/06/2018 and it showed stable examination without specific evidence for active metastatic disease. Cirrhosis of the liver was again was noted. Clinically patient is having lots of back pain especially to the right side of the lower back. No shortness of breath and no cough. He does not have tingling or numbing of his legs. He is now taking oxycodone 10 mg daily two a day. Patient now is being followed by orthopedics (Dr. Dias) as well as pain medicine (Dr. Remi Main). He underwent MRI of lower back. He is schedule to see Dr. Main on 07/31/2018. Interim Events Likely he went to see Dr. Main for steroid injection to the right lower back pain. At the time of the visit, Dr. Main noted that the patient has had a significant weight loss. Patient said that he has lost about 16 lb over 1-2 months. Patient also has had couple of instances of nausea and vomiting. Patient denies any headache. He denies any chest pain. Pain does have some shortness of breath. Patient has some right upper epigastric pain. No rebounds. He denies any blood in the stool blood in the urine. He denies any mass in the testicle. - Patient Self-Reported Symptoms SR Constitution: Weight loss/gain, Fatigue/Malaise, Night Sweats SR Gastrointestinal issues: Poor or no appetite, Nausea, Vomiting, Constipation SR Musculoskeletal issues: Joint pain or swelling, Muscle weakness, Muscle pain or cramps, Back or neck pain, Cold hands or feet, Difficulty walking, Bone pain SR Neuro issues: Difficulty balancing SR Endocrine issues: Cold intolerance - Additional ROS All systems PM: reviewed and no additional remarkable complaints except as stated Home Medications and Allergies Home Medications Medication Instructions Recorded Confirmed Type gabapentin 100 mg capsule 300 mg PO DAILY #90 cap 03/30/18 09/07/18 Rx polyethylene glycol 3350 8.5 gram 17 gram PO DAILY 03/30/18 09/07/18 History oral powder packet lidocaine 4 % topical patch 1 patch TOP Q12H PRN #30 each 07/31/18 09/07/18 Rx celecoxib 200 mg capsule 200 mg PO DAILY #30 cap 08/05/18 09/07/18 Rx gabapentin 300 mg capsule 600 mg PO BEDTIME cap 08/05/18 09/07/18 History secukinumab 150 mg/mL subcutaneous 300 mg SUBCUT Q4W ml 08/05/18 09/07/18 History pen injector oxycodone 10 mg tablet 10 mg PO TID PRN #90 tab MDD 20 mg 08/20/18 09/07/18 Rx Allergies Allergy/AdvReac Type Severity Reaction Status Date / Time No Known Drug Allergies Allergy Verified 09/07/18 10:36 Exam Vital signs: Last Vital Signs Temp 98.6 F 09/10/18 11:12 Pulse 62 09/10/18 11:12 Resp 18 09/10/18 11:12 BP 146/79 H 09/10/18 11:12 Pulse Ox 98 09/10/18 11:12 ECOG 1 Narrative: Gen: WDWN, NAD, pleasant and cooperative. Accompanied by his HEENT: NCAT, EOMI, PERRLA, anicteric sclera. Neck: Supple, No palpable thyromegaly or lymphadenopathy. Respiratory: CTAB, no wheezes audible. No JVD Cardiovascular: RRR, S1 and S2 normal, no M/G/R. Abdomen: Soft, NTND, BS normal, no palpable organomegaly. Mild tenderness at RUQ, no rebounds. Extremities: No LE pitting edema. Varicosis vein noted. Lymphatic: no palpable lymph nodes in the neck, axillae, or groins. External Genitalia: Left testicle is absent status post previous orchiectomy. The right testicle is about 16-20 cc in size, no palpable mass or nodules. Neurological: AOx3, CN II-XII grossly intact. No focal motor or sensory deficit. Psychiatric: Good judgment and insight; normal affect; normal thought process; cooperative, no depression, no anxiety. Results - Labs Laboratory Last Values WBC 5.9 X10^3/uL (4.5-11.0) 07/13/18 16:17 RBC 3.76 X10^6/uL (4.5-5.9) L 07/13/18 16:17 Hgb 11.3 g/dL (13.5-17.5) L 07/13/18 16:17 Hct 33.2 % (41-53) L 07/13/18 16:17 MCV 88.2 fL (80-100) 07/13/18 16:17 MCH 30.0 PG (26-34) 07/13/18 16:17 MCHC 34.1 % (30-36) 07/13/18 16:17 RDW 13.7 % (11.6-14.8) 07/13/18 16:17 Plt Count 93 X10^3/uL (150-400) L 07/13/18 16:17 Neut % (Auto) 60.3 % (50-75) 07/13/18 16:17 Lymph % (Auto) 24.9 % (25-40) L 07/13/18 16:17 [place] % (Auto) 12.2 % (3-14) 07/13/18 16:17 Eos % (Auto) 1.5 % (2-4) L 07/13/18 16:17 Baso % (Auto) 1.1 % (0-2) 07/13/18 16:17 Neut # (Auto) 3600 /uL (5561-7035) 07/13/18 16:17 Lymph # (Auto) 1500 /uL (1122-7019) 07/13/18 16:17 [place] # (Auto) 700 /uL (0-900) 07/13/18 16:17 Eos # (Auto) 100 /uL (0-450) 07/13/18 16:17 Baso # (Auto) 100 /uL (0-100) 07/13/18 16:17 Sodium 136 mmol/L (137-145) L 07/13/18 16:17 Potassium 4.2 mmol/L (3.4-5.1) 07/13/18 16:17 Chloride 101 mmol/L (98-107) 07/13/18 16:17 Carbon Dioxide 25 mmol/L (22-32) 07/13/18 16:17 BUN 17 mg/dL (9-20) 07/13/18 16:17 Creatinine 0.70 mg/dL (0.66-1.25) 07/13/18 16:17 Estimated GFR > 60.0 mL/min (>60) 07/13/18 16:17 BUN/Creatinine Ratio 24.3 (6-22) H 07/13/18 16:17 Glucose 88 mg/dL (70-100) 07/13/18 16:17 Calcium 9.3 mg/dL (8.4-10.2) 07/13/18 16:17 Total Bilirubin 0.6 mg/dL (0.2-1.3) 07/13/18 16:17 AST 18 IU/L (17-59) 07/13/18 16:17 ALT 13 IU/L (21-72) L 07/13/18 16:17 Alkaline Phosphatase 85 U/L (38-126) 07/13/18 16:17 Lactate Dehydrogenase 296 U/L (313-618) L 07/13/18 16:17 Total Protein 8.2 g/dL (6.3-8.2) 07/13/18 16:17 Albumin 4.3 g/dL (3.5-5.0) 07/13/18 16:17 Globulin 3.9 g/dL (1.7-4.1) 07/13/18 16:17 Albumin/Globulin Ratio 1.1 (1.0-2.8) 07/13/18 16:17 Alpha Fetoprotein 5.7 ng/mL (< 6.1) 07/13/18 16:17 HCG, Quant < 2.39 mIU/mL (-2.40) 07/13/18 16:17 Assessment and Plan (1) Malignant neoplasm of testis Overview: Metastatic testicular seminoma, good risk prognosis, status post BEP x4 ending June 2017. Assessment: I talked with him that the weight loss is of serious concern. Possible recurrence of the underlying metastatic seminoma needs to be evaluated. Plan: 1. CT CAP w/contrast 2. CBC, CMP, LDH, AFP, BHCG 3. RTC in one week to review the above results.
[2018-09-10 12:24] LABS: Add Manual Diff / Slide Review NO; Basophils Absolute Auto 0 /uL (0-100); Basophils Percent Auto 0.5 % (0-2); Eosinophils Absolute Auto 100 /uL (0-450); Eosinophils Percent Auto 1.8 % (2-4); Hematocrit 33.9 % (41-53); Hemoglobin 11.3 g/dL (13.5-17.5); Lymphocytes Absolute Auto 1200 /uL (1100-4500); Lymphocytes Percent Auto 23.5 % (25-40); Mean Corpuscular HGB Conc 33.2 % (30-36); Mean Corpuscular Hemoglobin 29.8 PG (26-34); Mean Corpuscular Volume 89.6 fL (80-100); Monocytes Absolute Auto 600 /uL (0-900); Monocytes Percent Auto 11.4 % (3-14); Neutrophils Absolute Auto 3300 /uL (1500-7000); Neutrophils Percent Auto 62.8 % (50-75); Platelet Count 91 X10^3/uL (150-400); Red Blood Cell Count 3.78 X10^6/uL (4.5-5.9); Red Cell Distribution Width 14.2 % (11.6-14.8); White Blood Cell Count 5.2 X10^3/uL (4.5-11.0)
[2018-09-10 12:36] LABS: Albumin Globulin Ratio 1.1 (1.0-2.8); Alkaline Phosphatase 85 U/L (38-126); Aspartate Aminotransferase 20 IU/L (17-59); BUN Creatinine Ratio 21.7 (6-22); Bilirubin Total 0.5 mg/dL (0.2-1.3); Blood Urea Nitrogen 13 mg/dL (9-20); Calcium 9.3 mg/dL (8.4-10.2); Carbon Dioxide 27 mmol/L (22-32); Chloride 101 mmol/L (98-107); Estimated Glomerular Filt Rate > 60.0 mL/min (>60); Globulin 3.5 g/dL (1.7-4.1); Glucose 107 mg/dL (70-100); HEMOLYSIS < 15 (0-50); Potassium 4.1 mmol/L (3.4-5.1); Sodium 138 mmol/L (137-145); Total Protein 7.5 g/dL (6.3-8.2)
[2018-09-10 12:52] LABS: HCG Quantitative /Beta subunit < 2.39 mIU/mL (-2.40)
[2018-09-10 12:55] LABS: Lactate Dehydrogenase 347 U/L (313-618)
[2018-09-10 13:05] LABS: Alanine Aminotransferase 15 IU/L (21-72)
[2018-09-12 15:21] LABS: Alpha Fetoprotein 5.7 ng/mL (< 6.1)
--- NOTE | 2018-09-21 08:38 | ONC.PN ---
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 He initially presented with a large 7 cm left testicular mass and underwent orchiectomy in April 2016. It showed pure seminoma pT1. He did not receive adjuvant chemotherapy. About 10 months later, he developed back pain and CT scan on 03/10/2017 showed a large left para-spinal mass 4.3 x 4.1 cm. Biopsy on 03/25/2017 showed positive for metastatic seminoma. He received a course of BEPx4 cycles with which he had excessive toxicity and multiple hospitalization and rehab for complications.He needed dose reduction after cycle 1 and eventually cycle 4 was given incomplete, completed in June 2017. There after patient has been on active surveillance with CT scan every [address] scan from August, December, and March of 2018 showed continued decrease of the retroperitoneal lymph nodes. Most recent CT scan was obtained on 07/06/2018 and it showed stable examination without specific evidence for active metastatic disease. Cirrhosis of the liver was again was noted. Clinically patient is having lots of back pain especially to the right side of the lower back. No shortness of breath and no cough. He does not have tingling or numbing of his legs. He is now taking oxycodone 10 mg daily two a day. Patient now is being followed by orthopedics (Dr. Dias) as well as pain medicine (Dr. Remi Main). He underwent MRI of lower back. He is schedule to see Dr. Main on 07/31/2018. Interim Events Due to significant weight loss, we decided to re-evaluate the possibility of recurrence or metastasis of his underlying history of seminoma. Patient underwent CT scan of the chest abdomen and pelvis on 09/16/2018. No evidence of recurrence or metastasis except evidence of cirrhosis and splenomegaly. Patient's tumor marker including AFP, LDH and beta HCG all within the normal range. Clinically patient continues to complain of significant mid and lower back pain. Patient reported that the weight seems to be stable now. Patient is complaining nausea with the pain. No diarrhea no constipation. - Patient Self-Reported Symptoms SR Constitution: Weight loss/gain, Fatigue/Malaise, Night Sweats SR Gastrointestinal issues: Poor or no appetite, Nausea, Vomiting, Constipation SR Musculoskeletal issues: Joint pain or swelling, Muscle weakness, Muscle pain or cramps, Back or neck pain, Cold hands or feet, Difficulty walking, Bone pain SR Neuro issues: Difficulty balancing SR Endocrine issues: Cold intolerance - Additional ROS All systems PM: reviewed and no additional remarkable complaints except as stated Home Medications and Allergies Home Medications Medication Instructions Recorded Confirmed Type gabapentin 100 mg capsule 300 mg PO DAILY #90 cap 03/30/18 09/10/18 Rx polyethylene glycol 3350 8.5 gram 17 gram PO DAILY 03/30/18 09/10/18 History oral powder packet lidocaine 4 % topical patch 1 patch TOP Q12H PRN #30 each 07/31/18 09/10/18 Rx celecoxib 200 mg capsule 200 mg PO DAILY #30 cap 08/05/18 09/10/18 Rx gabapentin 300 mg capsule 600 mg PO BEDTIME cap 08/05/18 09/10/18 History secukinumab 150 mg/mL subcutaneous 300 mg SUBCUT Q4W ml 08/05/18 09/10/18 History pen injector oxycodone 10 mg tablet 10 mg PO TID PRN #90 tab MDD 20 mg 09/18/18 Rx Allergies Allergy/AdvReac Type Severity Reaction Status Date / Time No Known Drug Allergies Allergy Verified 09/07/18 10:36 Exam Vital signs: Last Vital Signs Temp 98.7 F 09/21/18 15:18 Pulse 59 L 09/21/18 15:18 Resp 18 09/21/18 15:18 BP 133/91 H 09/21/18 15:18 Pulse Ox 98 09/21/18 15:18 ECOG 1 Narrative: Gen: WDWN, NAD, pleasant and cooperative. Accompanied by his HEENT: NCAT, EOMI, PERRLA, anicteric sclera. Neck: Supple, No palpable thyromegaly or lymphadenopathy. Respiratory: CTAB, no wheezes audible. No JVD Cardiovascular: RRR, S1 and S2 normal, no M/G/R. Abdomen: Soft, NTND, BS normal, no palpable organomegaly. Mild tenderness at RUQ, no rebounds. Extremities: No LE pitting edema. Varicosis vein noted. Lymphatic: no palpable lymph nodes in the neck, axillae Neurological: AOx3, CN II-XII grossly intact. No focal motor or sensory deficit. Psychiatric: Good judgment and insight; normal affect; normal thought process; cooperative, no depression, no anxiety. Results - Labs Laboratory Last Values WBC 5.2 X10^3/uL (4.5-11.0) 09/10/18 12:03 RBC 3.78 X10^6/uL (4.5-5.9) L 09/10/18 12:03 Hgb 11.3 g/dL (13.5-17.5) L 09/10/18 12:03 Hct 33.9 % (41-53) L 09/10/18 12:03 MCV 89.6 fL (80-100) 09/10/18 12:03 MCH 29.8 PG (26-34) 09/10/18 12:03 MCHC 33.2 % (30-36) 09/10/18 12:03 RDW 14.2 % (11.6-14.8) 09/10/18 12:03 Plt Count 91 X10^3/uL (150-400) L 09/10/18 12:03 Neut % (Auto) 62.8 % (50-75) 09/10/18 12:03 Lymph % (Auto) 23.5 % (25-40) L 09/10/18 12:03 [place] % (Auto) 11.4 % (3-14) 09/10/18 12:03 Eos % (Auto) 1.8 % (2-4) L 09/10/18 12:03 Baso % (Auto) 0.5 % (0-2) 09/10/18 12:03 Neut # (Auto) 3300 /uL (7529-8980) 09/10/18 12:03 Lymph # (Auto) 1200 /uL (7118-5737) 09/10/18 12:03 [place] # (Auto) 600 /uL (0-900) 09/10/18 12:03 Eos # (Auto) 100 /uL (0-450) 09/10/18 12:03 Baso # (Auto) 0 /uL (0-100) 09/10/18 12:03 Sodium 138 mmol/L (137-145) 09/10/18 12:03 Potassium 4.1 mmol/L (3.4-5.1) 09/10/18 12:03 Chloride 101 mmol/L (98-107) 09/10/18 12:03 Carbon Dioxide 27 mmol/L (22-32) 09/10/18 12:03 BUN 13 mg/dL (9-20) 09/10/18 12:03 Creatinine 0.60 mg/dL (0.66-1.25) L 09/10/18 12:03 Estimated GFR > 60.0 mL/min (>60) 09/10/18 12:03 BUN/Creatinine Ratio 21.7 (6-22) 09/10/18 12:03 Glucose 107 mg/dL (70-100) H 09/10/18 12:03 Calcium 9.3 mg/dL (8.4-10.2) 09/10/18 12:03 Total Bilirubin 0.5 mg/dL (0.2-1.3) 09/10/18 12:03 AST 20 IU/L (17-59) 09/10/18 12:03 ALT 15 IU/L (21-72) L 09/10/18 12:03 Alkaline Phosphatase 85 U/L (38-126) 09/10/18 12:03 Lactate Dehydrogenase 347 U/L (313-618) 09/10/18 12:03 Total Protein 7.5 g/dL (6.3-8.2) 09/10/18 12:03 Albumin 4.0 g/dL (3.5-5.0) 09/10/18 12:03 Globulin 3.5 g/dL (1.7-4.1) 09/10/18 12:03 Albumin/Globulin Ratio 1.1 (1.0-2.8) 09/10/18 12:03 Alpha Fetoprotein 5.7 ng/mL (< 6.1) 09/10/18 12:03 HCG, Quant < 2.39 mIU/mL (-2.40) 09/10/18 12:03 Assessment and Plan (1) Malignant neoplasm of testis Overview: Metastatic testicular seminoma, good risk prognosis, status post BEP x4 ending June 2017. Assessment: I reviewed and even showed the patient the CT scan images on the computer screen. There is no evidence of metastasis or recurrence of the seminoma. Patient's tumor marker including AFP, LDH, and beta HCG are within the normal range. Cirrhosis and splenomegaly were seen on the CT scan. No discrete lesions in the liver were identified. AFP level was normal arguing against the possible diagnosis of hepatocellular carcinoma. I talked with him and his that I will continue active surveillance as far as seminoma is concerned. As for his back pain, the exact etiology is unknown at this moment. On reviewing the CT scan results, patient's spine shows bamboo-like changes. I recommended that patient continue follow-up with his salvage grinder Dr. Junior Cleary. Plan: RTC in 3 months, repeat CBC, CMP, LDH, AFP, BHCG
[2018-09-21 15:18] VITALS: BP 133/91; PULSE 59; RESP 18; TEMP 37.1; O2SAT 98
--- NOTE | 2018-12-07 17:49 | PC.NURSE ---
Patient's caregiver called stating patient wants to know if he should be having another scan before his next follow up appt with Dr. Randall on 12/28. They request a call back with Dr. Randall's instructions at [phone]
[2018-12-15 14:12] LABS: Add Manual Diff / Slide Review NO; Basophils Absolute Auto 0 /uL (0-100); Basophils Percent Auto 0.5 % (0-2); Eosinophils Absolute Auto 100 /uL (0-450); Eosinophils Percent Auto 1.3 % (2-4); Hematocrit 32.2 % (41-53); Hemoglobin 10.8 g/dL (13.5-17.5); Lymphocytes Absolute Auto 1200 /uL (1100-4500); Lymphocytes Percent Auto 29.6 % (25-40); Mean Corpuscular HGB Conc 33.5 % (30-36); Mean Corpuscular Hemoglobin 29.8 PG (26-34); Mean Corpuscular Volume 88.8 fL (80-100); Monocytes Absolute Auto 500 /uL (0-900); Monocytes Percent Auto 11.6 % (3-14); Neutrophils Absolute Auto 2300 /uL (1500-7000); Platelet Count 80 X10^3/uL (150-400); Red Blood Cell Count 3.62 X10^6/uL (4.5-5.9); Red Cell Distribution Width 14.2 % (11.6-14.8)
[2018-12-15 14:51] LABS: Alanine Aminotransferase 24 IU/L (21-72); Albumin 3.9 g/dL (3.5-5.0); Albumin Globulin Ratio 1.2 (1.0-2.8); Alkaline Phosphatase 73 U/L (38-126); Aspartate Aminotransferase 36 IU/L (17-59); BUN Creatinine Ratio 21.4 (6-22); Bilirubin Total 0.7 mg/dL (0.2-1.3); Blood Urea Nitrogen 15 mg/dL (9-20); Calcium 9.3 mg/dL (8.4-10.2); Carbon Dioxide 26 mmol/L (22-32); Chloride 99 mmol/L (98-107); Estimated Glomerular Filt Rate > 60.0 mL/min (>60); Globulin 3.3 g/dL (1.7-4.1); Glucose 108 mg/dL (70-100); HEMOLYSIS < 15 (0-50); Lactate Dehydrogenase 504 U/L (313-618); Potassium 4.1 mmol/L (3.4-5.1); Sodium 135 mmol/L (137-145); Total Protein 7.2 g/dL (6.3-8.2)
[2018-12-15 15:07] LABS: HCG Quantitative /Beta subunit < 2.39 mIU/mL (-2.40)
[2018-12-28 14:36] VITALS: BP 130/73; PULSE 51; RESP 18; TEMP 36.3; O2SAT 98
--- NOTE | 2018-12-28 14:37 | P.PNONC_ITS ---
PN -Subjective Interval history: ID/CC: 58 year old male with metastatic testicular cancer here for scheduled follow up visit. He is complaining of severe back pain. 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 He initially presented with a large 7 cm left testicular mass and under went orchiectomy in April 2016. It showed pure seminoma pT1. He did not receive adjuvant chemotherapy. About 10 months later, he developed back pain and CT scan on 03/10/2017 showed a large left para-spinal mass 4.3 x 4.1 cm. Biopsy on 03/25/2017 showed positive for metastatic seminoma. He received a course of BEPx4 cycles with which he had excessive toxicity and multiple hospitalization and rehab for complications.He needed dose reduction after cycle 1 and eventually cycle 4 was given incomplete, completed in June 2017. There after patient has been on active surveillance with CT scan every [address] scan from August, December, and March of 2017 showed continued decrease of the retroperitoneal lymph nodes. Most recent CT scan was obtained on 07/06/2018 and it showed stable examination without specific evidence for active metastatic disease. Cirrhosis of the liver was again was noted. Due to significant weight loss, we decided to re-evaluate the possibility of recurrence or metastasis of his underlying history of seminoma. Patient underwent CT scan of the chest abdomen and pelvis on 09/16/2018. No evidence of recurrence or metastasis except evidence of cirrhosis and splenomegaly. Patient's tumor marker including AFP, LDH and beta HCG all within the normal range. Interim Events He said that his back has been hurting for a year and half. He is concerned about the pain in the back. It was not there before all this started. On 12/23/2018, he got up at about 3 am to use restroom. While he was sitting on the toilet. he developed acuate nausea and vomiting out of nowhere. His back was also hurting so bad that he was literally spinning around in the bed. He called 911 adn was brought to to ER. Pain meds given. He had CT scan. Dr. Newberry saw the patient. No findings on the CT to explain the back pain. CT showed cirrhosis and splenomegaly. He is now seeing Dr. Main for pain control. He had spinal injection for pain control on 12/15/2018. The pain does not get better after injection. - Patient Self-Reported Symptoms SR Constitution: Weight loss/gain, Fatigue/Malaise, Night Sweats SR Gastrointestinal issues: Poor or no appetite, Nausea, Vomiting, Constipation SR Musculoskeletal issues: Joint pain or swelling, Muscle weakness, Muscle pain or cramps, Back or neck pain, Cold hands or feet, Difficulty walking, Bone pain SR Neuro issues: Difficulty balancing SR Endocrine issues: Cold intolerance - Additional ROS All systems PM: reviewed and no additional remarkable complaints except as stated Home Medications and Allergies Home Medications Medication Instructions Recorded Confirmed Type polyethylene glycol 3350 8.5 gram 17 gram PO DAILY 03/30/18 12/28/18 History oral powder packet omeprazole magnesium 20 mg 20 mg PO DAILY 11/09/18 12/28/18 History tablet,delayed release gabapentin 300 mg capsule 300 mg PO Q8H #150 cap 11/20/18 12/28/18 Rx oxycodone 10 mg tablet 10 mg PO TID PRN #90 tab MDD 20 mg 12/11/18 12/28/18 Rx hydromorphone [Dilaudid] 2 mg PO Q4-6H PRN #30 tab 12/23/18 12/28/18 Rx Taltz Autoinjector 12/28/18 12/28/18 History celecoxib [Celebrex] 50 mg PO BID 12/28/18 12/28/18 History lactulose 10 g PO DAILY 12/28/18 12/28/18 History Allergies Allergy/AdvReac Type Severity Reaction Status Date / Time No Known Drug Allergies Allergy Verified 12/28/18 15:50 Exam Vital signs: Last Vital Signs Temp 97.4 F L 12/28/18 14:36 Pulse 51 L 12/28/18 14:36 Resp 18 12/28/18 14:36 BP 130/73 12/28/18 14:36 Pulse Ox 98 12/28/18 14:36 ECOG 1 Narrative: Gen: WDWN, NAD, pleasant and cooperative. Accompanied by his HEENT: NCAT, EOMI, PERRLA, anicteric sclera. Neck: Supple, No palpable thyromegaly or lymphadenopathy. Respiratory: CTAB, no wheezes audible. No JVD Cardiovascular: RRR, S1 and S2 normal, no M/G/R. Abdomen: Soft, NTND, BS normal, no palpable organomegaly. Mild tenderness at RUQ, no rebounds. Extremities: No LE pitting edema. Varicosis vein noted. Back: there is a pain point at the right paraspinal location at the level likely T12 or so. Lymphatic: no palpable lymph nodes in the neck, axillae Neurological: AOx3, CN II-XII grossly intact. No focal motor or sensory deficit. Psychiatric: Good judgment and insight; normal affect; normal thought process; cooperative Results - Labs Laboratory Last Values WBC 4.0 X10^3/uL (4.5-11.0) L 12/15/18 13:49 RBC 3.62 X10^6/uL (4.5-5.9) L 12/15/18 13:49 Hgb 10.8 g/dL (13.5-17.5) L 12/15/18 13:49 Hct 32.2 % (41-53) L 12/15/18 13:49 MCV 88.8 fL (80-100) 12/15/18 13:49 MCH 29.8 PG (26-34) 12/15/18 13:49 MCHC 33.5 % (30-36) 12/15/18 13:49 RDW 14.2 % (11.6-14.8) 12/15/18 13:49 Plt Count 80 X10^3/uL (150-400) L 12/15/18 13:49 Neut % (Auto) 57.0 % (50-75) 12/15/18 13:49 Lymph % (Auto) 29.6 % (25-40) 12/15/18 13:49 [place] % (Auto) 11.6 % (3-14) 12/15/18 13:49 Eos % (Auto) 1.3 % (2-4) L 12/15/18 13:49 Baso % (Auto) 0.5 % (0-2) 12/15/18 13:49 Neut # (Auto) 2300 /uL (6897-1701) 12/15/18 13:49 Lymph # (Auto) 1200 /uL (7203-9758) 12/15/18 13:49 [place] # (Auto) 500 /uL (0-900) 12/15/18 13:49 Eos # (Auto) 100 /uL (0-450) 12/15/18 13:49 Baso # (Auto) 0 /uL (0-100) 12/15/18 13:49 Sodium 135 mmol/L (137-145) L 12/15/18 13:49 Potassium 4.1 mmol/L (3.4-5.1) 12/15/18 13:49 Chloride 99 mmol/L (98-107) 12/15/18 13:49 Carbon Dioxide 26 mmol/L (22-32) 12/15/18 13:49 BUN 15 mg/dL (9-20) 12/15/18 13:49 Creatinine 0.70 mg/dL (0.66-1.25) 12/15/18 13:49 Estimated GFR > 60.0 mL/min (>60) 12/15/18 13:49 BUN/Creatinine Ratio 21.4 (6-22) 12/15/18 13:49 Glucose 108 mg/dL (70-100) H 12/15/18 13:49 Calcium 9.3 mg/dL (8.4-10.2) 12/15/18 13:49 Total Bilirubin 0.7 mg/dL (0.2-1.3) 12/15/18 13:49 AST 36 IU/L (17-59) 12/15/18 13:49 ALT 24 IU/L (21-72) 12/15/18 13:49 Alkaline Phosphatase 73 U/L (38-126) 12/15/18 13:49 Lactate Dehydrogenase 504 U/L (313-618) 12/15/18 13:49 Total Protein 7.2 g/dL (6.3-8.2) 12/15/18 13:49 Albumin 3.9 g/dL (3.5-5.0) 12/15/18 13:49 Globulin 3.3 g/dL (1.7-4.1) 12/15/18 13:49 Albumin/Globulin Ratio 1.2 (1.0-2.8) 12/15/18 13:49 Alpha Fetoprotein 5.7 ng/mL (< 6.1) 09/10/18 12:03 HCG, Quant < 2.39 mIU/mL (-2.40) 12/15/18 13:49 Assessment and Plan (1) Malignant neoplasm of testis Overview: Metastatic testicular seminoma, good risk prognosis, status post BEP x4 ending June 2017. Now he presents with severe right mid paraspinal pain. Assessment assessment The back pain symptom is still difficult to explain. The most recent CT scan showed no evidence of retroperitoneal lymphadenopathy. Patient's tumor marker is also within the normal range. However I do not have the pretreatment tumor marker level to compare with. Sometimes for seminoma, beta HCG may not be elevated. To further exclude the possibility of recurrent seminoma, I will obtain a PET scan to further evaluate. We will have the patient come back after the PET scan. In addition I encouraged the patient to follow up with Pain Clinic for the pain evaluation and treatment. Patient voiced understanding. (2) Alcoholic cirrhosis of liver Patient has alcoholic related cirrhosis the liver with splenomegaly, anemia, and thrombocytopenia. Patient said that he also underwent upper endoscopy and varices were is seen and banded. Patient currently is being followed by Dr. Raza at [facility]
[2019-01-01 10:36] LABS: Alpha Fetoprotein 4.7
--- NOTE | 2019-01-25 15:07 | PC.NURSE ---
Patient called reporting sore mouth with redness and white spots and that he is in [place] en route to a and would have to have any prescription sent there. Dr. Randall instructed patient to go to ER. This info given to patient per telephone. He stated he would do so if it gets worse. This nurse instructed he can try warm water rinses with either 1/2 teaspoon baking soda or salt and should do gentle oral care and avoid sharp, spicy and acidic foods and go to ER or urgent care to see a DrNahun if worsening.
--- NOTE | 2019-02-01 12:38 | P.PNONC_ITS ---
PN -Subjective Interval history: ID/CC: 58 year old male with metastatic testicular cancer here for scheduled follow up visit. He is complaining of severe back pain. 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 He initially presented with a large 7 cm left testicular mass and under went orchiectomy in April 2016. It showed pure seminoma pT1. He did not receive adjuvant chemotherapy. About 10 months later, he developed back pain and CT scan on 03/10/2017 showed a large left para-spinal mass 4.3 x 4.1 cm. Biopsy on 03/25/2017 showed positive for metastatic seminoma. He received a course of BEPx4 cycles with which he had excessive toxicity and multiple hospitalization and rehab for complications.He needed dose reduction after cycle 1 and eventually cycle 4 was given incomplete, completed in June 2017. There after patient has been on active surveillance with CT scan every [address] scan from August, December, and March of 2017 showed continued decrease of the retroperitoneal lymph nodes. Most recent CT scan was obtained on 07/06/2018 and it showed stable examination without specific evidence for active metastatic disease. Cirrhosis of the liver was again was noted. Due to significant weight loss, we decided to re-evaluate the possibility of recurrence or metastasis of his underlying history of seminoma. Patient underwent CT scan of the chest abdomen and pelvis on 09/16/2018. No evidence of recurrence or metastasis except evidence of cirrhosis and splenomegaly. Patient's tumor marker including AFP, LDH and beta HCG all within the normal range. Interim Events He said that his back has been hurting for a year and half. He is concerned about the pain in the back. It was not there before all this started. On 12/23/2018, he got up at about 3 am to use restroom. While he was sitting on the toilet. he developed acuate nausea and vomiting out of nowhere. His back was also hurting so bad that he was literally spinning around in the bed. He called 911 adn was brought to to ER. Pain meds given. He had CT scan. Dr. Newberry saw the patient. No findings on the CT to explain the back pain. CT showed cirrhosis and splenomegaly. He is now seeing Dr. Main for pain control. He had spinal injection for pain control on 12/15/2018. The pain does not get better after injection. - Patient Self-Reported Symptoms SR Constitution: Weight loss/gain SR Gastrointestinal issues: Poor or no appetite, Nausea, Vomiting, Constipation SR Musculoskeletal issues: Muscle weakness, Muscle pain or cramps, Back or neck pain SR Neuro issues: Difficulty balancing SR Endocrine issues: Cold intolerance - Additional ROS All systems PM: reviewed and no additional remarkable complaints except as stated Home Medications and Allergies Home Medications Medication Instructions Recorded Confirmed Type polyethylene glycol 3350 8.5 gram 17 gram PO DAILY 03/30/18 01/15/19 History oral powder packet omeprazole magnesium 20 mg 20 mg PO DAILY 11/09/18 01/15/19 History tablet,delayed release hydromorphone [Dilaudid] 2 mg PO Q4-6H PRN #30 tab 12/23/18 01/15/19 Rx Taltz Autoinjector 12/28/18 01/15/19 History celecoxib [Celebrex] 50 mg PO BID 12/28/18 01/15/19 History lactulose 10 g PO DAILY 12/28/18 01/15/19 History prednisone 10 mg tablet 10 mg PO BID #40 tab 12/28/18 01/15/19 Rx acyclovir 400 mg tablet 400 mg PO TID #30 tab 12/29/18 01/15/19 Rx fentanyl 25 mcg/hr transdermal 1 patch TRANSDERMAL Q72H #10 each 12/29/18 01/15/19 Rx patch gabapentin 300 mg capsule 300 mg PO Q8H #210 cap 01/15/19 01/15/19 Rx calcium carbonate 600 mg calcium 1,200 mg PO DAILY #90 tab 02/01/19 Rx (1,500 mg) tablet cholecalciferol (vitamin D3) 2,000 2,000 unit PO DAILY #90 cap 02/01/19 Rx unit capsule fentanyl 1 patch TRANSDERMAL Q72H #6 ea 02/01/19 Rx Allergies Allergy/AdvReac Type Severity Reaction Status Date / Time No Known Drug Allergies Allergy Verified 01/15/19 17:18 Results - Labs Laboratory Last Values WBC 4.0 X10^3/uL (4.5-11.0) L 12/15/18 13:49 RBC 3.62 X10^6/uL (4.5-5.9) L 12/15/18 13:49 Hgb 10.8 g/dL (13.5-17.5) L 12/15/18 13:49 Hct 32.2 % (41-53) L 12/15/18 13:49 MCV 88.8 fL (80-100) 12/15/18 13:49 MCH 29.8 PG (26-34) 12/15/18 13:49 MCHC 33.5 % (30-36) 12/15/18 13:49 RDW 14.2 % (11.6-14.8) 12/15/18 13:49 Plt Count 80 X10^3/uL (150-400) L 12/15/18 13:49 Neut % (Auto) 57.0 % (50-75) 12/15/18 13:49 Lymph % (Auto) 29.6 % (25-40) 12/15/18 13:49 [place] % (Auto) 11.6 % (3-14) 12/15/18 13:49 Eos % (Auto) 1.3 % (2-4) L 12/15/18 13:49 Baso % (Auto) 0.5 % (0-2) 12/15/18 13:49 Neut # (Auto) 2300 /uL (3209-9906) 12/15/18 13:49 Lymph # (Auto) 1200 /uL (1660-2414) 12/15/18 13:49 [place] # (Auto) 500 /uL (0-900) 12/15/18 13:49 Eos # (Auto) 100 /uL (0-450) 12/15/18 13:49 Baso # (Auto) 0 /uL (0-100) 12/15/18 13:49 Sodium 135 mmol/L (137-145) L 12/15/18 13:49 Potassium 4.1 mmol/L (3.4-5.1) 12/15/18 13:49 Chloride 99 mmol/L (98-107) 12/15/18 13:49 Carbon Dioxide 26 mmol/L (22-32) 12/15/18 13:49 BUN 15 mg/dL (9-20) 12/15/18 13:49 Creatinine 0.70 mg/dL (0.66-1.25) 12/15/18 13:49 Estimated GFR > 60.0 mL/min (>60) 12/15/18 13:49 BUN/Creatinine Ratio 21.4 (6-22) 12/15/18 13:49 Glucose 108 mg/dL (70-100) H 12/15/18 13:49 Calcium 9.3 mg/dL (8.4-10.2) 12/15/18 13:49 Total Bilirubin 0.7 mg/dL (0.2-1.3) 12/15/18 13:49 AST 36 IU/L (17-59) 12/15/18 13:49 ALT 24 IU/L (21-72) 12/15/18 13:49 Alkaline Phosphatase 73 U/L (38-126) 12/15/18 13:49 Lactate Dehydrogenase 504 U/L (313-618) 12/15/18 13:49 Total Protein 7.2 g/dL (6.3-8.2) 12/15/18 13:49 Albumin 3.9 g/dL (3.5-5.0) 12/15/18 13:49 Globulin 3.3 g/dL (1.7-4.1) 12/15/18 13:49 Albumin/Globulin Ratio 1.2 (1.0-2.8) 12/15/18 13:49 Alpha Fetoprotein 4.7 12/15/18 13:49 HCG, Quant < 2.39 mIU/mL (-2.40) 12/15/18 13:49 Assessment and Plan (1) Malignant neoplasm of testis Overview: Metastatic testicular seminoma, good risk prognosis, status post BEP x4 ending June 2017. Now he presents with severe right mid paraspinal pain. Assessment assessment Today once again I talked with the patient that the pain is localized to the right of the spine at the level probably T10-T11. There is a tender point exquisitely sensitive to pressure. No palpable nodules. No skin changes. I talked with him and his that this is not the place where he was diagnosed with the recurrent seminoma. In addition, the pain has been going on for one and half years. I am doubtful that this pain is related to his previous diagnosis of seminoma. I talked with them that I will do a focused ultrasound on that specific point. If there is any underlying pathological change, I will proceed with a biopsy to further evaluate. I talked with them that if there is no evidence of recurrence of the seminoma, I do not think it is appropriate for me to continue the pain management. Patient has already scheduled if pain clinic visit on the eighteenth of this month to see [facility]. Sunny escalante will keep the appointment. Plan: US study of right paraspinal pain point F/u with pain clinic RTC after US study Renew Fentanyl patch 50 mcg, (2) Alcoholic cirrhosis of liver Patient has alcoholic related cirrhosis the liver with splenomegaly, anemia, and thrombocytopenia. Patient said that he also underwent upper endoscopy and varices were seen and banded. Patient currently is being followed by Dr. Raza at [facility]
[2019-02-01 12:51] VITALS: BP 140/66; PULSE 49; RESP 16; TEMP 36.2; O2SAT 99
--- NOTE | 2019-02-04 16:50 | PC.NURSE ---
Bri called this junior copywriter explaining that she was unable to bean picker machine operator RX for Fentanyl bc the prior auth required more information for approval. Bri explains that pt's last patch will be placed on Friday and he will need a new one by Friday morning at 830am. Bri requesting clinic to complete additional information for prior auth in order for insurance coverage to be approved. Bri expresses time concern r/t to this clinic being closed on Fridays. Let Bri know that [facility] Pharmacist had just completed prior auth submission for pain patch and that Bri should check in periodically tomorrow and through the weekend for updated status. Bri agreeable. Further explained that insurance may not cover pain medication, Jude verbalizes understanding. According to Bri she had to pay out of pocket for previous pain RX, reports paying $60. Bri requesting account contact associate in clinic to discuss prior auth and reimbursements, this junior copywriter instructed her to ask to speak to Gabi Limon on Friday. Pt has appt with provider on Friday afternoon. Also explained to Bri that this junior copywriter was unsure if reimbursement could be given. Bri agrees to request to speak to Gabi on Friday. Per Bri pt has appt at the pain clinic at [facility] on Feb 10.
--- NOTE | 2019-02-08 13:00 | ONC.PN ---
PN -Subjective Interval history: ID/CC: 58 year old male with metastatic testicular cancer here for scheduled follow up visit. He is complaining of severe back pain. 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 He initially presented with a large 7 cm left testicular mass and underwent orchiectomy in April 2016. It showed pure seminoma pT1. He did not receive adjuvant chemotherapy. About 10 months later, he developed back pain and CT scan on 03/10/2017 showed a large left para-spinal mass 4.3 x 4.1 cm. Biopsy on 03/25/2017 showed positive for metastatic seminoma. He received a course of BEPx4 cycles with which he had excessive toxicity and multiple hospitalization and rehab for complications.He needed dose reduction after cycle 1 and eventually cycle 4 was given incomplete, completed in June 2017. Thereafter patient has been on active surveillance with CT scan every [address] scan from August, December, and March of 2017 showed continued decrease of the retroperitoneal lymph nodes. Most recent CT scan was obtained on 07/06/2018 and it showed stable examination without specific evidence for active metastatic disease. Cirrhosis of the liver was again was noted. Due to significant weight loss, we decided to re-evaluate the possibility of recurrence or metastasis of his underlying history of seminoma. Patient underwent CT scan of the chest abdomen and pelvis on 09/16/2018. No evidence of recurrence or metastasis except evidence of cirrhosis and splenomegaly. Patient's tumor marker including AFP, LDH and beta HCG all within the normal range. He said that his back has been hurting for a year and half. He is concerned about the pain in the back. It was not there before all this started. On 12/23/2018, he got up at about 3 am to use restroom. While he was sitting on the toilet. he developed acute nausea and vomiting out of nowhere. His back was also hurting so bad that he was literally spinning around in the bed. He called 911 and was brought to ER. Pain meds given. He had CT scan. Dr. Newberry saw the patient. No findings on the CT to explain the back pain. CT showed cirrhosis and splenomegaly. He is now seeing Dr. Main for pain control. He had spinal injection for pain control on 12/15/2018. The pain does not get better after injection. Interim Events: He has extensive psoriasis and is using injection of Talz about once a month. Today, he said the that the right para-spinal pain remains about the same. He is using fentanyl patch with good control. Patient underwent ultrasound study of the pain site. No abnormal findings were seen. He presents here today for scheduled follow-up for discussion of further management. He said he has long time chronic degenerative disc disease, but he had never had parapinal pain until after the seminoma diagnosis. He is scheduled to see pain specialist at [facility] on 02/10/2019. - Patient Self-Reported Symptoms SR Constitution: Weight loss/gain SR ears, nose, mouth, throat issues: Difficulty swallowing SR Cardiovascular issues: Shortness of breath with activity or lying flat SR Gastrointestinal issues: Poor or no appetite, Nausea, Vomiting, Constipation SR Musculoskeletal issues: Muscle weakness, Muscle pain or cramps, Back or neck pain SR Neuro issues: Numbness or tingling, Difficulty balancing SR Endocrine issues: Cold intolerance - Additional ROS All systems PM: reviewed and no additional remarkable complaints except as stated Home Medications and Allergies Home Medications Medication Instructions Recorded Confirmed Type polyethylene glycol 3350 8.5 gram 17 gram PO DAILY 03/30/18 01/15/19 History oral powder packet omeprazole magnesium 20 mg 20 mg PO DAILY 11/09/18 01/15/19 History tablet,delayed release hydromorphone [Dilaudid] 2 mg PO Q4-6H PRN #30 tab 12/23/18 01/15/19 Rx Taltz Autoinjector 12/28/18 01/15/19 History celecoxib [Celebrex] 50 mg PO TID 12/28/18 02/08/19 History lactulose 10 g PO DAILY 12/28/18 01/15/19 History prednisone 10 mg tablet 10 mg PO BID #40 tab 12/28/18 01/15/19 Rx acyclovir 400 mg tablet 400 mg PO TID #30 tab 12/29/18 01/15/19 Rx fentanyl 25 mcg/hr transdermal 1 patch TRANSDERMAL Q72H #10 each 12/29/18 01/15/19 Rx patch gabapentin 300 mg capsule 300 mg PO Q8H #210 cap 01/15/19 01/15/19 Rx calcium carbonate 600 mg calcium 1,200 mg PO DAILY #90 tab 02/01/19 Rx (1,500 mg) tablet cholecalciferol (vitamin D3) 2,000 2,000 unit PO DAILY #90 cap 02/01/19 Rx unit capsule fentanyl 1 patch TRANSDERMAL Q72H #6 ea 02/01/19 Rx Allergies Allergy/AdvReac Type Severity Reaction Status Date / Time No Known Drug Allergies Allergy Verified 01/15/19 17:18 Exam Vital signs: Last Vital Signs Temp 97.1 F L 02/01/19 12:51 Pulse 49 L 02/01/19 12:51 Resp 16 02/01/19 12:51 BP 140/66 02/01/19 12:51 Pulse Ox 99 02/01/19 12:51 - Constitutional positive no acute distress, positive mild distress, positive thin, positive cooperative - Routine HEENT Exam Head: Present: normocephalic, atraumatic Eye: Present: EOMI, PERRL, normal accommodation. Absent: conjunctival icterus ENT: Present: mucous membranes moist - Routine Neck Exam Present: supple. Absent: lymphadenopathy, thyromegaly - Routine Respiratory Exam Present: Clear to auscultation bilaterally. Absent: wheezes - Routine Cardiovascular Exam Present: RRR, S1, S2. Absent: murmur, gallop, rubs - Routine Abdominal Exam Present: soft. Absent: tenderness, distended, organomegaly - Routine Neurological Exam Present: alert, oriented X3, CN II-XII intact. Absent: sensory deficit, motor deficit - Routine Psychiatric Exam Present: normal affect Results - Labs Laboratory Last Values WBC 4.0 X10^3/uL (4.5-11.0) L 12/15/18 13:49 RBC 3.62 X10^6/uL (4.5-5.9) L 12/15/18 13:49 Hgb 10.8 g/dL (13.5-17.5) L 12/15/18 13:49 Hct 32.2 % (41-53) L 12/15/18 13:49 MCV 88.8 fL (80-100) 12/15/18 13:49 MCH 29.8 PG (26-34) 12/15/18 13:49 MCHC 33.5 % (30-36) 12/15/18 13:49 RDW 14.2 % (11.6-14.8) 12/15/18 13:49 Plt Count 80 X10^3/uL (150-400) L 12/15/18 13:49 Neut % (Auto) 57.0 % (50-75) 12/15/18 13:49 Lymph % (Auto) 29.6 % (25-40) 12/15/18 13:49 [place] % (Auto) 11.6 % (3-14) 12/15/18 13:49 Eos % (Auto) 1.3 % (2-4) L 12/15/18 13:49 Baso % (Auto) 0.5 % (0-2) 12/15/18 13:49 Neut # (Auto) 2300 /uL (4373-1301) 12/15/18 13:49 Lymph # (Auto) 1200 /uL (5122-6769) 12/15/18 13:49 [place] # (Auto) 500 /uL (0-900) 12/15/18 13:49 Eos # (Auto) 100 /uL (0-450) 12/15/18 13:49 Baso # (Auto) 0 /uL (0-100) 12/15/18 13:49 Sodium 135 mmol/L (137-145) L 12/15/18 13:49 Potassium 4.1 mmol/L (3.4-5.1) 12/15/18 13:49 Chloride 99 mmol/L (98-107) 12/15/18 13:49 Carbon Dioxide 26 mmol/L (22-32) 12/15/18 13:49 BUN 15 mg/dL (9-20) 12/15/18 13:49 Creatinine 0.70 mg/dL (0.66-1.25) 12/15/18 13:49 Estimated GFR > 60.0 mL/min (>60) 12/15/18 13:49 BUN/Creatinine Ratio 21.4 (6-22) 12/15/18 13:49 Glucose 108 mg/dL (70-100) H 12/15/18 13:49 Calcium 9.3 mg/dL (8.4-10.2) 12/15/18 13:49 Total Bilirubin 0.7 mg/dL (0.2-1.3) 12/15/18 13:49 AST 36 IU/L (17-59) 12/15/18 13:49 ALT 24 IU/L (21-72) 12/15/18 13:49 Alkaline Phosphatase 73 U/L (38-126) 12/15/18 13:49 Lactate Dehydrogenase 504 U/L (313-618) 12/15/18 13:49 Total Protein 7.2 g/dL (6.3-8.2) 12/15/18 13:49 Albumin 3.9 g/dL (3.5-5.0) 12/15/18 13:49 Globulin 3.3 g/dL (1.7-4.1) 12/15/18 13:49 Albumin/Globulin Ratio 1.2 (1.0-2.8) 12/15/18 13:49 Alpha Fetoprotein 4.7 12/15/18 13:49 HCG, Quant < 2.39 mIU/mL (-2.40) 12/15/18 13:49 Assessment and Plan (1) Malignant neoplasm of testis Overview: Metastatic testicular seminoma, good risk prognosis, status post BEP x4 ending June 2017. Now he presents with severe right mid paraspinal pain. Assessment assessment Today, I reviewed the ultrasound study with the patient. I also showed patient the previous CT scan of the recurrent seminoma. It clearly showed that the tumor is in the left chest close to the T8-T10 vertebra. In addition, the spine showed typical ankylosing spondylitis changes. Patient said that the pain has been going on for 1-1/2 years. I talked with him that it is very unlikely it is a recurrent seminoma. Patient has already had scheduled clinic visit at [facility]. I talked with him that I will continue follow-up on his seminoma. Plan: F/u with pain clinic RTC in 3 months, CBC, CMP, LDH, AFP, BHCG (2) Alcoholic cirrhosis of liver Patient has alcoholic related cirrhosis the liver with splenomegaly, anemia, and thrombocytopenia. Patient said that he also underwent upper endoscopy and varices were seen and banded. Patient currently is being followed by Dr. Raza at [facility]
[2019-02-08 13:18] VITALS: BP 137/69; PULSE 57; RESP 16; TEMP 36.8; O2SAT 99
--- NOTE | 2019-02-08 13:24 | ONC.MSW ---
Description: Fentanyl Patch Insurance Issues Activity: Pt's cg/friend, Bri, shared that she is needing assistance in getting reimbursed for the Fentanyl patches that were not pre-authorized by our clinic prior to her picking them up, and that she is requesting assistance in contacting the insurance company in order to have our clinic supply a letter stating why we don't have [employer] on a pain contract. Discussed situation with Dr. Randall. He is not willing to continue any further prescribing of the Fentanyl patches, and is deferring to the [facility] to continue following. Pt has an appt. with the pain clinic later this week in order to establish care. Since we are not going to continue to prescribe, we will not be providing a letter to the insurance company. JIG GRINDER SET UP OPERATOR will offer to utilize the [facility] [employer] Fund in order to reimburse pt for the $65.00 they had needed to pay out of pocket.
[2019-05-10 13:17] LABS: Add Manual Diff / Slide Review NO; Basophils Absolute Auto 0 /uL (0-100); Basophils Percent Auto 0.3 % (0-2); Eosinophils Absolute Auto 100 /uL (0-450); Eosinophils Percent Auto 1.9 % (2-4); Hematocrit 34.8 % (41-53); Lymphocytes Absolute Auto 1400 /uL (1100-4500); Lymphocytes Percent Auto 27.3 % (25-40); Mean Corpuscular HGB Conc 34.4 % (30-36); Mean Corpuscular Hemoglobin 30.9 PG (26-34); Mean Corpuscular Volume 89.9 fL (80-100); Monocytes Absolute Auto 500 /uL (0-900); Monocytes Percent Auto 10.7 % (3-14); Neutrophils Absolute Auto 3000 /uL (1500-7000); Neutrophils Percent Auto 59.8 % (50-75); Platelet Count 77 X10^3/uL (150-400); Red Blood Cell Count 3.87 X10^6/uL (4.5-5.9); Red Cell Distribution Width 13.6 % (11.6-14.8); White Blood Cell Count 5.1 X10^3/uL (4.5-11.0)
[2019-05-10 13:36] LABS: Lactate Dehydrogenase 310 U/L (313-618)
[2019-05-10 13:53] LABS: HCG Quantitative /Beta subunit < 2.39 mIU/mL (-2.40)
[2019-05-17 13:34] VITALS: BP 141/78; PULSE 67; RESP 18; TEMP 36.4; O2SAT 97
--- NOTE | 2019-05-17 13:41 | ONC.PN ---
PN -Subjective Interval history: ID/CC: 58 year old male with metastatic testicular cancer here for scheduled follow up visit. He is complaining of severe back pain. 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 He initially presented with a large 7 cm left testicular mass and underwent orchiectomy in April 2016. It showed pure seminoma pT1. He did not receive adjuvant chemotherapy. About 10 months later, he developed back pain and CT scan on 03/10/2017 showed a large left para-spinal mass 4.3 x 4.1 cm. Biopsy on 03/25/2017 showed positive for metastatic seminoma. He received a course of BEPx4 cycles with which he had excessive toxicity and multiple hospitalization and rehab for complications.He needed dose reduction after cycle 1 and eventually cycle 4 was given incomplete, completed in June 2017. Thereafter patient has been on active surveillance with CT scan every [address] scan from August, December, and March of 2017 showed continued decrease of the retroperitoneal lymph nodes. Most recent CT scan was obtained on 07/06/2018 and it showed stable examination without specific evidence for active metastatic disease. Cirrhosis of the liver was again was noted. Due to significant weight loss, we decided to re-evaluate the possibility of recurrence or metastasis of his underlying history of seminoma. Patient underwent CT scan of the chest abdomen and pelvis on 09/16/2018. No evidence of recurrence or metastasis except evidence of cirrhosis and splenomegaly. Patient's tumor marker including AFP, LDH and beta HCG all within the normal range. He said that his back has been hurting for a year and half. He is concerned about the pain in the back. It was not there before all this started. On 12/23/2018, he got up at about 3 am to use restroom. While he was sitting on the toilet. he developed acute nausea and vomiting out of nowhere. His back was also hurting so bad that he was literally spinning around in the bed. He called 911 and was brought to ER. Pain meds given. He had CT scan. Dr. Newberry saw the patient. No findings on the CT to explain the back pain. CT showed cirrhosis and splenomegaly. He is now seeing Dr. Main for pain control. He had spinal injection for pain control on 12/15/2018. The pain does not get better after injection. Interim Events: He was evalauted by Dr. Hamilton on 02/10/2019 at [facility]. He underwent trigger point injection of Bupivacane that did not work. On follow up with Dr. Hamilton on 04/12/2019, fentanyl patch 50 ug/72h was prescribed. It dampens the pain. Lyrica was also given. It can calm a little bit, but not very effective. - Patient Self-Reported Symptoms SR Constitution: Fatigue/Malaise SR ears, nose, mouth, throat issues: Difficulty swallowing SR Cardiovascular issues: Shortness of breath with activity or lying flat SR Gastrointestinal issues: Poor or no appetite, Nausea, Vomiting, Constipation SR Musculoskeletal issues: Muscle weakness SR Neuro issues: Difficulty balancing SR Endocrine issues: Cold intolerance - Additional ROS All systems PM: reviewed and no additional remarkable complaints except as stated Home Medications and Allergies Home Medications Medication Instructions Recorded Confirmed Type polyethylene glycol 3350 8.5 gram 17 gram PO DAILY 03/30/18 05/17/19 History oral powder packet omeprazole magnesium 20 mg 20 mg PO DAILY 11/09/18 05/17/19 History tablet,delayed release Taltz Autoinjector 12/28/18 04/05/19 History celecoxib [Celebrex] 50 mg PO TID 12/28/18 05/17/19 History lactulose 10 g PO DAILY 12/28/18 05/17/19 History calcium carbonate 600 mg calcium 1,200 mg PO DAILY #90 tab 02/01/19 05/17/19 Rx (1,500 mg) tablet cholecalciferol (vitamin D3) 50 2,000 unit PO DAILY #90 cap 02/01/19 05/17/19 Rx mcg (2,000 unit) capsule fentanyl 1 patch TRANSDERMAL Q72H #6 ea 02/01/19 04/05/19 Rx acyclovir 400 mg tablet 400 mg PO TID #30 tab 04/05/19 05/17/19 Rx pregabalin [Lyrica] 100 mg PO TID 05/17/19 05/17/19 History Allergies Allergy/AdvReac Type Severity Reaction Status Date / Time No Known Drug Allergies Allergy Verified 02/22/19 11:59 Exam Vital signs: Vital Signs Temp Pulse Resp BP Pulse Ox 05/17/19 13:34 97.6 F 67 18 141/78 H 97 Intake and Output 05/16/19 05/17/19 05/17/19 23:59 07:59 15:59 Other: Weight 93.6 kg Patient Weight 05/17/19 23:59 Weight 93.6 kg - Constitutional positive no acute distress, positive obese, positive cooperative - Routine HEENT Exam Head: Present: normocephalic, atraumatic Eye: Present: EOMI, PERRL, normal accommodation. Absent: conjunctival icterus ENT: Present: mucous membranes moist - Routine Neck Exam Present: supple. Absent: lymphadenopathy, thyromegaly - Routine Chest/Breast/Axilla Exam Axillae: Absent: lymphadenopathy - Routine Respiratory Exam Present: Clear to auscultation bilaterally. Absent: wheezes - Routine Cardiovascular Exam Present: RRR, S1, S2. Absent: murmur, gallop, rubs - Routine Abdominal Exam Present: soft. Absent: tenderness, distended, organomegaly - Routine Extremities Exam Absent: edema - Routine Neurological Exam Present: alert, oriented X3, CN II-XII intact. Absent: sensory deficit, motor deficit - Routine Psychiatric Exam Present: normal affect, normal thought process Results - Labs Laboratory Last Values WBC 5.1 X10^3/uL (4.5-11.0) 05/10/19 12:42 RBC 3.87 X10^6/uL (4.5-5.9) L 05/10/19 12:42 Hgb 12.0 g/dL (13.5-17.5) L 05/10/19 12:42 Hct 34.8 % (41-53) L 05/10/19 12:42 MCV 89.9 fL (80-100) 05/10/19 12:42 MCH 30.9 PG (26-34) 05/10/19 12:42 MCHC 34.4 % (30-36) 05/10/19 12:42 RDW 13.6 % (11.6-14.8) 05/10/19 12:42 Plt Count 77 X10^3/uL (150-400) L 05/10/19 12:42 Neut % (Auto) 59.8 % (50-75) 05/10/19 12:42 Lymph % (Auto) 27.3 % (25-40) 05/10/19 12:42 [place] % (Auto) 10.7 % (3-14) 05/10/19 12:42 Eos % (Auto) 1.9 % (2-4) L 05/10/19 12:42 Baso % (Auto) 0.3 % (0-2) 05/10/19 12:42 Neut # (Auto) 3000 /uL (4834-7309) 05/10/19 12:42 Lymph # (Auto) 1400 /uL (9118-1041) 05/10/19 12:42 [place] # (Auto) 500 /uL (0-900) 05/10/19 12:42 Eos # (Auto) 100 /uL (0-450) 05/10/19 12:42 Baso # (Auto) 0 /uL (0-100) 05/10/19 12:42 Sodium 135 mmol/L (137-145) L 12/15/18 13:49 Potassium 4.1 mmol/L (3.4-5.1) 12/15/18 13:49 Chloride 99 mmol/L (98-107) 12/15/18 13:49 Carbon Dioxide 26 mmol/L (22-32) 12/15/18 13:49 BUN 15 mg/dL (9-20) 12/15/18 13:49 Creatinine 0.70 mg/dL (0.66-1.25) 12/15/18 13:49 Estimated GFR > 60.0 mL/min (>60) 12/15/18 13:49 BUN/Creatinine Ratio 21.4 (6-22) 12/15/18 13:49 Glucose 108 mg/dL (70-100) H 12/15/18 13:49 Calcium 9.3 mg/dL (8.4-10.2) 12/15/18 13:49 Total Bilirubin 0.7 mg/dL (0.2-1.3) 12/15/18 13:49 AST 36 IU/L (17-59) 12/15/18 13:49 ALT 24 IU/L (21-72) 12/15/18 13:49 Alkaline Phosphatase 73 U/L (38-126) 12/15/18 13:49 Lactate Dehydrogenase 310 U/L (313-618) L 05/10/19 12:42 Total Protein 7.2 g/dL (6.3-8.2) 12/15/18 13:49 Albumin 3.9 g/dL (3.5-5.0) 12/15/18 13:49 Globulin 3.3 g/dL (1.7-4.1) 12/15/18 13:49 Albumin/Globulin Ratio 1.2 (1.0-2.8) 12/15/18 13:49 Alpha Fetoprotein 6.0 ng/mL (< 6.1) 05/10/19 12:42 HCG, Quant < 2.39 mIU/mL (-2.40) 05/10/19 12:42 Assessment and Plan (1) Malignant neoplasm of testis Overview: Metastatic testicular seminoma, good risk prognosis, status post BEP x4 ending June 2017. Now he presents with severe right mid paraspinal pain. Assessment assessment Talked with patient that clinically I don't think there's any concern for disease recurrence or metastasis. However I will continue current active surveillance every 3 months. Plan: F/u with pain clinic at [facility] RTC in 3 months, CBC, CMP, LDH, AFP, BHCG (2) Alcoholic cirrhosis of liver Patient has alcoholic related cirrhosis the liver with splenomegaly, anemia, and thrombocytopenia. Patient said that he also underwent upper endoscopy and varices were seen and banded. Patient currently is being followed by Dr. Raza at [facility]
[2019-08-05 16:14] LABS: Add Manual Diff / Slide Review NO; Basophils Absolute Auto 0 /uL (0-100); Basophils Percent Auto 0.4 % (0-2); Eosinophils Absolute Auto 100 /uL (0-450); Eosinophils Percent Auto 1.1 % (2-4); Hematocrit 32.2 % (41-53); Hemoglobin 10.7 g/dL (13.5-17.5); Lymphocytes Absolute Auto 1700 /uL (1100-4500); Lymphocytes Percent Auto 30.5 % (25-40); Mean Corpuscular HGB Conc 33.2 % (30-36); Mean Corpuscular Hemoglobin 29.6 PG (26-34); Mean Corpuscular Volume 89.2 fL (80-100); Monocytes Absolute Auto 600 /uL (0-900); Monocytes Percent Auto 10.1 % (3-14); Neutrophils Absolute Auto 3300 /uL (1500-7000); Neutrophils Percent Auto 57.9 % (50-75); Platelet Count 87 X10^3/uL (150-400); Red Blood Cell Count 3.61 X10^6/uL (4.5-5.9); Red Cell Distribution Width 13.6 % (11.6-14.8); White Blood Cell Count 5.7 X10^3/uL (4.5-11.0)
[2019-08-05 16:25] LABS: Alanine Aminotransferase 13 IU/L (<50); Albumin 4.2 g/dL (3.5-5.0); Albumin Globulin Ratio 1.1 (1.0-2.8); Alkaline Phosphatase 80 U/L (38-126); Aspartate Aminotransferase 24 IU/L (17-59); BUN Creatinine Ratio 13.8 (6-22); Bilirubin Total 0.7 mg/dL (0.2-1.3); Blood Urea Nitrogen 11 mg/dL (9-20); Calcium 9.2 mg/dL (8.4-10.2); Carbon Dioxide 25 mmol/L (22-32); Chloride 100 mmol/L (98-107); Estimated Glomerular Filt Rate > 60.0 mL/min (>60); Globulin 3.9 g/dL (1.7-4.1); Glucose 129 mg/dL (70-100); HEMOLYSIS < 15 (0-50); Lactate Dehydrogenase 347 U/L (313-618); Sodium 134 mmol/L (137-145); Total Protein 8.1 g/dL (6.3-8.2)
[2019-08-05 17:54] LABS: HCG Quantitative /Beta subunit < 2.4 mIU/mL (-2.40)
[2019-08-06 06:56] LABS: Alpha Fetoprotein 4.6 ng/mL (0.0-8.3)
[2019-08-16 14:33] VITALS: BP 158/70; PULSE 64; RESP 16; TEMP 37.1; O2SAT 98
--- NOTE | 2019-08-16 14:39 | ONC.PN ---
PN -Subjective Interval history: ID/CC: 58 year old male with metastatic testicular cancer here for scheduled follow up visit. He is complaining of severe back pain. 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 He initially presented with a large 7 cm left testicular mass and underwent orchiectomy in April 2016. It showed pure seminoma pT1. He did not receive adjuvant chemotherapy. About 10 months later, he developed back pain and CT scan on 03/10/2017 showed a large left para-spinal mass 4.3 x 4.1 cm. Biopsy on 03/25/2017 showed positive for metastatic seminoma. He received a course of BEPx4 cycles with which he had excessive toxicity and multiple hospitalization and rehab for complications.He needed dose reduction after cycle 1 and eventually cycle 4 was given incomplete, completed in June 2017. Thereafter patient has been on active surveillance with CT scan every [address] scan from August, December, and March of 2017 showed continued decrease of the retroperitoneal lymph nodes. Most recent CT scan was obtained on 07/06/2018 and it showed stable examination without specific evidence for active metastatic disease. Cirrhosis of the liver was again was noted. Due to significant weight loss, we decided to re-evaluate the possibility of recurrence or metastasis of his underlying history of seminoma. Patient underwent CT scan of the chest abdomen and pelvis on 09/16/2018. No evidence of recurrence or metastasis except evidence of cirrhosis and splenomegaly. Patient's tumor marker including AFP, LDH and beta HCG all within the normal range. He said that his back has been hurting for a year and half. He is concerned about the pain in the back. It was not there before all this started. On 12/23/2018, he got up at about 3 am to use restroom. While he was sitting on the toilet. he developed acute nausea and vomiting out of nowhere. His back was also hurting so bad that he was literally spinning around in the bed. He called 911 and was brought to ER. Pain meds given. He had CT scan. Dr. Newberry saw the patient. No findings on the CT to explain the back pain. CT showed cirrhosis and splenomegaly. He is now seeing Dr. Main for pain control. He had spinal injection for pain control on 12/15/2018. The pain does not get better after injection. Interim Events: He gained weight since his last visit. For pain of his lower back pain, he is now being followed by Dr. Hamilton at [facility]. He is now using Fentanyl patch and Lyrica. Otherwise patient reports no fever and no chills. He denies any chest pain. He denies shortness of breath. He denies abdominal pain. - Patient Self-Reported Symptoms SR Constitution: Fatigue/Malaise SR ears, nose, mouth, throat issues: Difficulty swallowing SR Cardiovascular issues: Shortness of breath with activity or lying flat SR Gastrointestinal issues: Poor or no appetite, Nausea, Vomiting, Constipation SR Musculoskeletal issues: Muscle weakness SR Neuro issues: Difficulty balancing SR Endocrine issues: Cold intolerance - Additional ROS All systems PM: reviewed and no additional remarkable complaints except as stated (those mentioned in HPI, Interval History and SR above.) Home Medications and Allergies Home Medications Medication Instructions Recorded Confirmed Type polyethylene glycol 3350 8.5 gram 17 gram PO DAILY 03/30/18 07/06/19 History oral powder packet omeprazole magnesium 20 mg 20 mg PO DAILY 11/09/18 07/06/19 History tablet,delayed release [employer]z Autoinjector 12/28/18 07/06/19 History celecoxib [Celebrex] 50 mg PO TID 12/28/18 07/06/19 History lactulose 10 g PO DAILY 12/28/18 07/06/19 History fentanyl 1 patch TRANSDERMAL Q72H #6 ea 02/01/19 07/06/19 Rx acyclovir 400 mg tablet 400 mg PO TID #30 tab 04/05/19 07/06/19 Rx pregabalin [Lyrica] 100 mg PO TID 05/17/19 07/06/19 History methocarbamol 500 mg tablet 500 mg PO TID #60 tab 07/06/19 07/06/19 Rx Allergies Allergy/AdvReac Type Severity Reaction Status Date / Time No Known Drug Allergies Allergy Verified 07/06/19 15:57 Exam Vital signs: Vital Signs Temp Pulse Resp BP Pulse Ox 08/16/19 14:33 98.8 F 64 16 158/70 H 98 Intake and Output 08/15/19 08/16/19 08/16/19 23:59 07:59 15:59 Other: Weight 97.7 kg Patient Weight 08/16/19 23:59 Weight 97.7 kg Narrative: ECOG 1 Vitals above reviewed Constitutional: WDWN, well nourished, and well groomed. NAD. Pleasant and cooperative. HEENT: NCAT, EOMI, PERRLA. Anicteric sclera. Respiratory: No use of accessory muscles. Musculoskeletal: normal gait and station Skin: No rashes, lesions, or ulcers. No induration, or subcutaneous nodules. Neurological: CN II-XII grossly intact. No focal motor or sensory deficit. Psychiatric: Normal judgment and insight. AOx3. Normal memory (recent and remote). Normal mood and affect. Results - Labs Laboratory Last Values WBC 5.7 X10^3/uL (4.5-11.0) 08/05/19 16:02 RBC 3.61 X10^6/uL (4.5-5.9) L 08/05/19 16:02 Hgb 10.7 g/dL (13.5-17.5) L 08/05/19 16:02 Hct 32.2 % (41-53) L 08/05/19 16:02 MCV 89.2 fL (80-100) 08/05/19 16:02 MCH 29.6 PG (26-34) 08/05/19 16:02 MCHC 33.2 % (30-36) 08/05/19 16:02 RDW 13.6 % (11.6-14.8) 08/05/19 16:02 Plt Count 87 X10^3/uL (150-400) L 08/05/19 16:02 Neut % (Auto) 57.9 % (50-75) 08/05/19 16:02 Lymph % (Auto) 30.5 % (25-40) 08/05/19 16:02 [place] % (Auto) 10.1 % (3-14) 08/05/19 16:02 Eos % (Auto) 1.1 % (2-4) L 08/05/19 16:02 Baso % (Auto) 0.4 % (0-2) 08/05/19 16:02 Neut # (Auto) 3300 /uL (6189-5405) 08/05/19 16:02 Lymph # (Auto) 1700 /uL (6790-5915) 08/05/19 16:02 [place] # (Auto) 600 /uL (0-900) 08/05/19 16:02 Eos # (Auto) 100 /uL (0-450) 08/05/19 16:02 Baso # (Auto) 0 /uL (0-100) 08/05/19 16:02 Sodium 134 mmol/L (137-145) L 08/05/19 16:02 Potassium 4.0 mmol/L (3.4-5.1) 08/05/19 16:02 Chloride 100 mmol/L (98-107) 08/05/19 16:02 Carbon Dioxide 25 mmol/L (22-32) 08/05/19 16:02 BUN 11 mg/dL (9-20) 08/05/19 16:02 Creatinine 0.80 mg/dL (0.66-1.25) 08/05/19 16:02 Estimated GFR > 60.0 mL/min (>60) 08/05/19 16:02 BUN/Creatinine Ratio 13.8 (6-22) 08/05/19 16:02 Glucose 129 mg/dL (70-100) H 08/05/19 16:02 Calcium 9.2 mg/dL (8.4-10.2) 08/05/19 16:02 Total Bilirubin 0.7 mg/dL (0.2-1.3) 08/05/19 16:02 AST 24 IU/L (17-59) 08/05/19 16:02 ALT 13 IU/L (<50) 08/05/19 16:02 Alkaline Phosphatase 80 U/L (38-126) 08/05/19 16:02 Lactate Dehydrogenase 347 U/L (313-618) 08/05/19 16:02 Total Protein 8.1 g/dL (6.3-8.2) 08/05/19 16:02 Albumin 4.2 g/dL (3.5-5.0) 08/05/19 16:02 Globulin 3.9 g/dL (1.7-4.1) 08/05/19 16:02 Albumin/Globulin Ratio 1.1 (1.0-2.8) 08/05/19 16:02 Alpha Fetoprotein 4.6 ng/mL (0.0-8.3) 08/05/19 16:02 HCG, Quant < 2.4 mIU/mL (-2.40) 04/16/20 16:02 Assessment and Plan (1) Malignant neoplasm of testis Overview: Metastatic testicular seminoma, good risk prognosis, status post BEP x4 ending June 2017. Now he presents with severe right mid paraspinal pain. Assessment assessment I reviewed the lab tests with the patient. Beta hCG and AFP are within the normal range. Clinically I do not think there is any evidence to suggest disease recurrence or metastasis. I will continue active surveillance. As far as the paraspinal pain is concerned, patient will continue follow-up at [facility]. Plan: F/u with pain clinic at [facility] Follow with Dr. Hamilton at [facility] for pain management RTC in 6 months, CBC, CMP, LDH, AFP, BHCG (2) Alcoholic cirrhosis of liver Overview: Patient has alcoholic related cirrhosis the liver with splenomegaly, anemia, and thrombocytopenia. Patient said that he also underwent upper endoscopy and varices were seen and banded. Patient currently is being followed by Dr. Raza at [facility] Assessment: No black stool. but complains of abd cramps. Plan: Continue follow up with
[2020-01-07 15:50] LABS: Add Manual Diff / Slide Review NO; Basophils Absolute Auto 0 /uL (0-100); Basophils Percent Auto 0.3 % (0-2); Eosinophils Absolute Auto 100 /uL (0-450); Eosinophils Percent Auto 1.2 % (2-4); Hematocrit 34.4 % (41-53); Hemoglobin 11.2 g/dL (13.5-17.5); Lymphocytes Absolute Auto 1200 /uL (1100-4500); Lymphocytes Percent Auto 18.2 % (25-40); Mean Corpuscular HGB Conc 32.5 % (30-36); Mean Corpuscular Hemoglobin 28.8 PG (26-34); Mean Corpuscular Volume 88.4 fL (80-100); Monocytes Absolute Auto 700 /uL (0-900); Monocytes Percent Auto 10.9 % (3-14); Neutrophils Absolute Auto 4500 /uL (1500-7000); Neutrophils Percent Auto 69.4 % (50-75); Platelet Count 90 X10^3/uL (150-400); Red Blood Cell Count 3.89 X10^6/uL (4.5-5.9); Red Cell Distribution Width 15.2 % (11.6-14.8); White Blood Cell Count 6.5 X10^3/uL (4.5-11.0)
[2020-01-07 16:06] LABS: Alanine Aminotransferase 16 IU/L (<50); Albumin 4.4 g/dL (3.5-5.0); Albumin Globulin Ratio 1.1 (1.0-2.8); Alkaline Phosphatase 81 U/L (38-126); Aspartate Aminotransferase 25 IU/L (17-59); BUN Creatinine Ratio 15.9 (6-22); Bilirubin Total 0.5 mg/dL (0.2-1.3); Blood Urea Nitrogen 13 mg/dL (9-20); Calcium 9.5 mg/dL (8.4-10.2); Carbon Dioxide 31 mmol/L (22-32); Chloride 97 mmol/L (98-107); Estimated Glomerular Filt Rate > 60.0 mL/min (>60); Glucose 126 mg/dL (70-100); HEMOLYSIS < 15 (0-50); Lactate Dehydrogenase 356 U/L (313-618); Potassium 4.4 mmol/L (3.4-5.1); Sodium 136 mmol/L (137-145); Total Protein 8.4 g/dL (6.3-8.2)
[2020-01-07 16:23] LABS: HCG Quantitative /Beta subunit < 2.4 mIU/mL (-2.40)
[2020-01-08 09:19] LABS: Alpha Fetoprotein 5.3 ng/mL (0.0-8.3)
--- NOTE | 2020-02-02 13:19 | PC.NURSE ---
Addendum entered by Beny Loza R.N. 02/07/20 08:54: Ok to use labs from 01/[address] Franks Original Note: LABS FOR F/U APPT ON 02/13 WERE MISTAKENLY DONE EARLY ON 01/06. PATIENT WOULD LIKE TO KNOW IF THIS IS FINE FOR HIS F/U OR IF DR FRANKS WOULD LIKE A MORE RECENT RESULT AND HE SHOULD HAVE THEM DONE AGAIN. DR FRANKS INFORMED PER THIS NOTE TO ADVISE. TRIAGE TO CALL PATIENT AT [phone] AND INFORM WHETHER HE SHOULD HAVE ANOTHER LAB DRAW OR NOT BEFORE 02/13.
[2020-02-14 14:11] VITALS: BP 183/71; PULSE 54; RESP 18; O2SAT 97
--- NOTE | 2020-02-14 14:22 | ONC.PN ---
PN -Subjective Interval history: ID/CC: 58 year old male with metastatic testicular cancer here for scheduled follow up visit. He is complaining of severe back pain. 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 He initially presented with a large 7 cm left testicular mass and underwent orchiectomy in April 2016. It showed pure seminoma pT1. He did not receive adjuvant chemotherapy. About 10 months later, he developed back pain and CT scan on 03/10/2017 showed a large left para-spinal mass 4.3 x 4.1 cm. Biopsy on 03/25/2017 showed positive for metastatic seminoma. He received a course of BEPx4 cycles with which he had excessive toxicity and multiple hospitalization and rehab for complications.He needed dose reduction after cycle 1 and eventually cycle 4 was given incomplete, completed in June 2017. Thereafter patient has been on active surveillance with CT scan every [address] scan from August, December, and March of 2017 showed continued decrease of the retroperitoneal lymph nodes. Most recent CT scan was obtained on 07/06/2018 and it showed stable examination without specific evidence for active metastatic disease. Cirrhosis of the liver was again was noted. Due to significant weight loss, we decided to re-evaluate the possibility of recurrence or metastasis of his underlying history of seminoma. Patient underwent CT scan of the chest abdomen and pelvis on 09/16/2018. No evidence of recurrence or metastasis except evidence of cirrhosis and splenomegaly. Patient's tumor marker including AFP, LDH and beta HCG all within the normal range. He said that his back has been hurting for a year and half. He is concerned about the pain in the back. It was not there before all this started. On 12/23/2018, he got up at about 3 am to use restroom. While he was sitting on the toilet. he developed acute nausea and vomiting out of nowhere. His back was also hurting so bad that he was literally spinning around in the bed. He called 911 and was brought to ER. Pain meds given. He had CT scan. Dr. Newberry saw the patient. No findings on the CT to explain the back pain. CT showed cirrhosis and splenomegaly. He is now seeing Dr. Main for pain control. He had spinal injection for pain control on 12/15/2018. The pain does not get better after injection. Interim Events: He went to sports medicine Dr. Main. He did another MR. 'Bone spurs on the spine was found, and was thought to be the etiology of the back pain. Besides that, all has been good. He is using Fentanyl patch, 50 mcg every 2 days. - Patient Self-Reported Symptoms SR Constitution: Fatigue/Malaise SR ears, nose, mouth, throat issues: Difficulty swallowing SR Cardiovascular issues: Shortness of breath with activity or lying flat SR Gastrointestinal issues: Poor or no appetite, Nausea, Vomiting, Constipation SR Musculoskeletal issues: Joint pain or swelling, Muscle weakness, Muscle pain or cramps, Back or neck pain SR Neuro issues: Difficulty balancing SR Endocrine issues: Cold intolerance - Additional ROS All systems PM: reviewed and no additional remarkable complaints except as stated Home Medications and Allergies Home Medications Medication Instructions Recorded Confirmed Type polyethylene glycol 3350 8.5 gram 17 gram PO DAILY 03/30/18 12/06/19 History oral powder packet omeprazole magnesium 20 mg 20 mg PO DAILY 11/09/18 12/06/19 History tablet,delayed release celecoxib [Celebrex] 50 mg PO TID 12/28/18 12/06/19 History lactulose 10 g PO DAILY 12/28/18 12/06/19 History fentanyl 1 patch TRANSDERMAL Q72H #6 ea 02/01/19 12/06/19 Rx acyclovir 400 mg tablet 400 mg PO TID #30 tab 04/05/19 12/06/19 Rx pregabalin [Lyrica] 100 mg PO TID 05/17/19 12/06/19 History tizanidine 4 mg tablet 4 mg PO tab 08/20/19 12/06/19 History ixekizumab 80 mg/mL subcutaneous mg SUBCUT 12/06/19 12/06/19 History auto-injector prednisone 5 mg tablet 5 mg PO DAILY 12/06/19 12/06/19 History sulfasalazine 500 mg tablet 0.5 gram PO DAILY 12/06/19 12/06/19 History methocarbamol 500 mg tablet See Rx Instructions .ROUTE 01/04/20 Rx .COMPLEX #270 tab Allergies Allergy/AdvReac Type Severity Reaction Status Date / Time No Known Drug Allergies Allergy Verified 12/06/19 13:45 Exam Vital signs: Vital Signs Pulse Resp BP Pulse Ox 02/14/20 14:11 54 L 18 183/71 H 97 Intake and Output 02/13/20 02/14/20 02/14/20 23:59 07:59 15:59 Other: Weight 105.6 kg Patient Weight 02/14/20 23:59 Weight 105.6 kg Narrative: ECOG 1 Vitals above reviewed Constitutional: WDWN, well nourished, and well groomed. NAD. Pleasant and cooperative. HEENT: NCAT, EOMI, PERRLA. Anicteric sclera. Respiratory: No use of accessory muscles. Card: RRR, S1 and S2 normal, no MRG Abd: soft, mild epigastric pain, no hepatosplenomegaly Musculoskeletal: normal gait and station Skin: No rashes, lesions, or ulcers. No induration, or subcutaneous nodules. Neurological: CN II-XII grossly intact. No focal motor or sensory deficit. Psychiatric: Normal judgment and insight. AOx3. Normal memory (recent and remote). Normal mood and affect. Results - Labs Laboratory Last Values WBC 6.5 X10^3/uL (4.5-11.0) 01/07/20 15:23 RBC 3.89 X10^6/uL (4.5-5.9) L 01/07/20 15:23 Hgb 11.2 g/dL (13.5-17.5) L 01/07/20 15:23 Hct 34.4 % (41-53) L 01/07/20 15:23 MCV 88.4 fL (80-100) 01/07/20 15:23 MCH 28.8 PG (26-34) 01/07/20 15:23 MCHC 32.5 % (30-36) 01/07/20 15:23 RDW 15.2 % (11.6-14.8) H 01/07/20 15:23 Plt Count 90 X10^3/uL (150-400) L 01/07/20 15:23 Neut % (Auto) 69.4 % (50-75) 01/07/20 15:23 Lymph % (Auto) 18.2 % (25-40) L 01/07/20 15:23 [place] % (Auto) 10.9 % (3-14) 01/07/20 15:23 Eos % (Auto) 1.2 % (2-4) L 01/07/20 15:23 Baso % (Auto) 0.3 % (0-2) 01/07/20 15:23 Neut # (Auto) 4500 /uL (3360-5961) 01/07/20 15:23 Lymph # (Auto) 1200 /uL (8019-6977) 01/07/20 15:23 [place] # (Auto) 700 /uL (0-900) 01/07/20 15:23 Eos # (Auto) 100 /uL (0-450) 01/07/20 15:23 Baso # (Auto) 0 /uL (0-100) 01/07/20 15:23 Sodium 136 mmol/L (137-145) L 01/07/20 15:23 Potassium 4.4 mmol/L (3.4-5.1) 01/07/20 15:23 Chloride 97 mmol/L (98-107) L 01/07/20 15:23 Carbon Dioxide 31 mmol/L (22-32) 01/07/20 15:23 BUN 13 mg/dL (9-20) 01/07/20 15:23 Creatinine 0.82 mg/dL (0.66-1.25) 01/07/20 15:23 Estimated GFR > 60.0 mL/min (>60) 01/07/20 15:23 BUN/Creatinine Ratio 15.9 (6-22) 01/07/20 15: Glucose 126 mg/dL (70-100) H 01/07/20 15:23 Calcium 9.5 mg/dL (8.4-10.2) 01/07/20 15:23 Total Bilirubin 0.5 mg/dL (0.2-1.3) 01/07/20 15:23 AST 25 IU/L (17-59) 01/07/20 15:23 ALT 16 IU/L (<50) 01/07/20 15:23 Alkaline Phosphatase 81 U/L (38-126) 01/07/20 15:23 Lactate Dehydrogenase 356 U/L (313-618) 01/07/20 15:23 Total Protein 8.4 g/dL (6.3-8.2) H 01/07/20 15:23 Albumin 4.4 g/dL (3.5-5.0) 01/07/20 15:23 Globulin 4.0 g/dL (1.7-4.1) 01/07/20 15:23 Albumin/Globulin Ratio 1.1 (1.0-2.8) 01/07/20 15:23 Alpha Fetoprotein 5.3 ng/mL (0.0-8.3) 01/07/20 15:23 HCG, Quant < 2.4 mIU/mL (-2.40) 01/07/20 15:23 - Imaging Additional studies: Procedures Drainage of Peritoneal Cavity, Percutaneous Approach, Diagnostic (04/18/17) Transfusion of Nonautologous Platelets into Central Vein, Percutaneous Approach (04/18/17) Transfusion of Nonautologous Red Blood Cells into Central Vein, Percutaneous Approach (08/09/17) Transfusion of Nonautologous Red Blood Cells into Peripheral Vein, Percutaneous Approach (06/13/17) Assessment and Plan (1) Malignant neoplasm of testis Overview: Metastatic testicular seminoma, good risk prognosis, status post BEP x4 ending June 2017. Now he presents with severe right mid paraspinal pain. Assessment assessment I reviewed the lab tests with the patient. Beta hCG, LDH and AFP are within the normal range. Clinically I do not think there is any evidence to suggest disease recurrence or metastasis. I will continue active surveillance. Plan: RTC in 6 months, CBC, CMP, LDH, AFP, BHCG (2) Alcoholic cirrhosis of liver Overview: Patient has alcoholic related cirrhosis the liver with splenomegaly, anemia, and thrombocytopenia. Patient said that he also underwent upper endoscopy and varices were seen and banded. Patient currently is being followed by Dr. Raza at [facility] Assessment: No black stool. but complains of abd cramps. Plan: Continue follow up with
[2020-08-02 10:51] LABS: Add Manual Diff / Slide Review NO; Basophils Absolute Auto 0 /uL (0-100); Basophils Percent Auto 0.5 % (0-2); Eosinophils Absolute Auto 100 /uL (0-450); Eosinophils Percent Auto 1.4 % (2-4); Hematocrit 35.4 % (41-53); Hemoglobin 12.1 g/dL (13.5-17.5); Lymphocytes Absolute Auto 1400 /uL (1100-4500); Lymphocytes Percent Auto 31.8 % (25-40); Mean Corpuscular HGB Conc 34.1 % (30-36); Mean Corpuscular Hemoglobin 30.8 PG (26-34); Mean Corpuscular Volume 90.5 fL (80-100); Monocytes Absolute Auto 600 /uL (0-900); Monocytes Percent Auto 12.7 % (3-14); Neutrophils Absolute Auto 2400 /uL (1500-7000); Neutrophils Percent Auto 53.6 % (50-75); Platelet Count 99 X10^3/uL (150-400); Red Blood Cell Count 3.91 X10^6/uL (4.5-5.9); Red Cell Distribution Width 13.5 % (11.6-14.8); White Blood Cell Count 4.4 X10^3/uL (4.5-11.0)
[2020-08-02 11:12] LABS: Alanine Aminotransferase 14 IU/L (<50); Albumin 4.5 g/dL (3.5-5.0); Albumin Globulin Ratio 1.4 (1.0-2.8); Alkaline Phosphatase 66 U/L (38-126); Aspartate Aminotransferase 30 IU/L (17-59); BUN Creatinine Ratio 13.8 (6-22); Bilirubin Total 0.6 mg/dL (0.2-1.3); Blood Urea Nitrogen 11 mg/dL (9-20); Calcium 9.7 mg/dL (8.4-10.2); Carbon Dioxide 28 mmol/L (22-32); Chloride 102 mmol/L (98-107); Estimated Glomerular Filt Rate > 60.0 mL/min (>60); Globulin 3.2 g/dL (1.7-4.1); Glucose 110 mg/dL (70-100); HEMOLYSIS < 15 (0-50); Lactate Dehydrogenase 383 U/L (313-618); Potassium 3.9 mmol/L (3.4-5.1); Sodium 138 mmol/L (137-145); Total Protein 7.7 g/dL (6.3-8.2)
[2020-08-02 11:28] LABS: HCG Quantitative /Beta subunit < 2.4 mIU/mL (-2.40)
[2020-08-03 05:37] LABS: Alpha Fetoprotein 6.2 ng/mL (0.0-8.3)
--- NOTE | 2020-08-14 12:38 | P.PNONC_ITS ---
PN -Subjective Interval history: ID/CC: 58 year old male with metastatic testicular cancer here for scheduled follow up visit. He is complaining of severe back pain. 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 He initially presented with a large 7 cm left testicular mass and underw ent orchiectomy in April 2016. It showed pure seminoma pT1. He did not receive adjuvant chemotherapy. About 10 months later, he developed back pain and CT scan on 03/10/2017 showed a large left para-spinal mass 4.3 x 4.1 cm. Biopsy on 03/25/2017 showed positive for metastatic seminoma. He received a course of BEPx4 cycles with which he had excessive toxicity and multiple hospitalization and rehab for complications.He needed dose reduction after cycle 1 and eventually cycle 4 was given incomplete, completed in June 2017. Thereafter patient has been on active surveillance with CT scan every [address] scan from August, December, and March of 2017 showed continued decrease of the retroperitoneal lymph nodes. Most recent CT scan was obtained on 07/06/2018 and it showed stable examination without specific evidence for active metastatic disease. Cirrhosis of the liver was again was noted. Due to significant weight loss, we decided to re-evaluate the possibility of recurrence or metastasis of his underlying history of seminoma. Patient underwent CT scan of the chest abdomen and pelvis on 09/16/2018. No evidence of recurrence or metastasis except evidence of cirrhosis and splenomegaly. Patient's tumor marker including AFP, LDH and beta HCG all within the normal range. He said that his back has been hurting for a year and half. He is concerned about the pain in the back. It was not there before all this started. On 12/23/2018, he got up at about 3 am to use restroom. While he was sitting on the toilet. he developed acute nausea and vomiting out of nowhere. His back was also hurting so bad that he was literally spinning around in the bed. He called 911 and was brought to ER. Pain meds given. He had CT scan. Dr. Newberry saw the patient. No findings on the CT to explain the back pain. CT showed cirrhosis and splenomegaly. He is now seeing Dr. Main for pain control. He had spinal injection for pain control on 12/15/2018. The pain does not get better after injection. Interim Events: Suhail came in for scheduled follow up visit. He continues to complain of back pain problems and is using Fentanyl patch, 50 mcg every 2 days. His weight loss seems to have stopped and he is actually gaining weight. - Patient Self-Reported Symptoms SR Constitution: Fatigue/Malaise SR ears, nose, mouth, throat issues: Difficulty swallowing SR Cardiovascular issues: Shortness of breath with activity or lying flat SR Gastrointestinal issues: Poor or no appetite, Nausea, Vomiting, Constipation SR Musculoskeletal issues: Joint pain or swelling, Muscle weakness, Muscle pain or cramps, Back or neck pain SR Neuro issues: Difficulty balancing SR Endocrine issues: Cold intolerance - Additional ROS All systems PM: reviewed and no additional remarkable complaints except as stated Home Medications and Allergies Home Medications Medication Instructions Recorded Confirmed Type lactulose 10 g PO DAILY 12/28/18 07/17/20 History fentanyl 1 patch TRANSDERMAL Q72H #6 ea 02/01/19 07/17/20 Rx pregabalin [Lyrica] 100 mg PO TID 05/17/19 07/17/20 History tizanidine 4 mg tablet 4 mg PO tab 08/20/19 07/17/20 History sulfasalazine 500 mg tablet 0.5 gram PO DAILY 12/06/19 07/17/20 History methocarbamol 500 mg tablet See Rx Instructions .ROUTE 01/04/20 07/17/20 Rx .COMPLEX #270 tab omeprazole magnesium 20 mg 40 mg PO DAILY tab 04/03/20 07/17/20 History tablet,delayed release adalimumab 40 mg/0.8 mL 40 mg SUBCUT Q2W 04/18/20 07/17/20 History subcutaneous syringe kit clotrimazole 10 mg diamond 10 mg MUCOUS MEMBRANE 5XD #30 tab 07/17/20 07/17/20 Rx efinaconazole 10 % topical 1 applic TOPICAL BEDTIME #4 ml 07/17/20 07/17/20 Rx solution with applicator ketoconazole 2 % topical cream 1 applic TOPICAL BID PRN #30 g 07/17/20 07/17/20 Rx levothyroxine 75 mcg tablet 75 mcg PO DAILY #90 tab 07/17/20 07/17/20 Rx prednisone 5 mg tablet 2.5 mg PO DAILY tab 07/17/20 07/17/20 History Allergies Allergy/AdvReac Type Severity Reaction Status Date / Time No Known Drug Allergies Allergy Verified 04/18/20 13:26 Exam Vital signs: 08/14/20 22:38 Last Vital Signs Temp 98.0 F 08/14/20 13:45 Pulse 71 08/14/20 13:45 Resp 16 08/14/20 13:45 BP 140/77 08/14/20 13:45 Pulse Ox 97 08/14/20 13:45 Narrative: ECOG 1 Vitals above reviewed Constitutional: WDWN, well nourished, and well groomed. NAD. Pleasant and cooperative. HEENT: NCAT, EOMI, PERRLA. Anicteric sclera. Respiratory: No use of accessory muscles. Card: RRR, S1 and S2 normal, no MRG Abd: soft, mild epigastric pain, no hepatosplenomegaly Musculoskeletal: normal gait and station Skin: No rashes, lesions, or ulcers. No induration, or subcutaneous nodules. Neurological: CN II-XII grossly intact. No focal motor or sensory deficit. Psychiatric: Normal judgment and insight. AOx3. Normal memory (recent and remote). Normal mood and affect. Results - Labs Laboratory Last Values WBC 4.4 X10^3/uL (4.5-11.0) L 08/02/20 10: RBC 3.91 X10^6/uL (4.5-5.9) L 08/02/20 10:26 Hgb 12.1 g/dL (13.5-17.5) L 08/02/20 10:26 Hct 35.4 % (41-53) L 08/02/20 10:26 MCV 90.5 fL (80-100) 08/02/20 10:26 MCH 30.8 PG (26-34) 08/02/20 10:26 MCHC 34.1 % (30-36) 08/02/20 10:26 RDW 13.5 % (11.6-14.8) 08/02/20 10:26 Plt Count 99 X10^3/uL (150-400) L 08/02/20 10:26 Neut % (Auto) 53.6 % (50-75) 08/02/20 10:26 Lymph % (Auto) 31.8 % (25-40) 08/02/20 10:26 Henry % (Auto) 12.7 % (3-14) 08/02/20 10:26 Eos % (Auto) 1.4 % (2-4) L 08/02/20 10:26 Baso % (Auto) 0.5 % (0-2) 08/02/20 10:26 Neut # (Auto) 2400 /uL (0180-8602) 08/02/20 10:26 Lymph # (Auto) 1400 /uL (8854-3149) 08/02/20 10:26 Henry # (Auto) 600 /uL (0-900) 08/02/20 10:26 Eos # (Auto) 100 /uL (0-450) 08/02/20 10:26 Baso # (Auto) 0 /uL (0-100) 08/02/20 10:26 Sodium 138 mmol/L (137-145) 08/02/20 10:26 Potassium 3.9 mmol/L (3.4-5.1) 08/02/20 10:26 Chloride 102 mmol/L (98-107) 08/02/20 10:26 Carbon Dioxide 28 mmol/L (22-32) 08/02/20 10:26 BUN 11 mg/dL (9-20) 08/02/20 10:26 Creatinine 0.80 mg/dL (0.66-1.25) 08/02/20 10:26 Estimated GFR > 60.0 mL/min (>60) 08/02/20 10:26 BUN/Creatinine Ratio 13.8 (6-22) 08/02/20 10:26 Glucose 110 mg/dL (70-100) H 08/02/20 10:26 Calcium 9.7 mg/dL (8.4-10.2) 08/02/20 10:26 Total Bilirubin 0.6 mg/dL (0.2-1.3) 08/02/20 10:26 AST 30 IU/L (17-59) 08/02/20 10:26 ALT 14 IU/L (<50) 08/02/20 10:26 Alkaline Phosphatase 66 U/L (38-126) 08/02/20 10:26 Lactate Dehydrogenase 383 U/L (313-618) 08/02/20 10:26 Total Protein 7.7 g/dL (6.3-8.2) 08/02/20 10:26 Albumin 4.5 g/dL (3.5-5.0) 08/02/20 10:26 Globulin 3.2 g/dL (1.7-4.1) 08/02/20 10:26 Albumin/Globulin Ratio 1.4 (1.0-2.8) 08/02/20 10:26 Alpha Fetoprotein 6.2 ng/mL (0.0-8.3) 08/02/20 10:26 HCG, Quant < 2.4 mIU/mL (-2.40) 08/02/20 10:26 - Imaging Additional studies: Procedures Drainage of Peritoneal Cavity, Percutaneous Approach, Diagnostic (04/18/17) Transfusion of Nonautologous Platelets into Central Vein, Percutaneous Approach (04/18/17) Transfusion of Nonautologous Red Blood Cells into Central Vein, Percutaneous Approach (08/09/17) Transfusion of Nonautologous Red Blood Cells into Peripheral Vein, Percutaneous Approach (06/13/17) Assessment and Plan (1) Malignant neoplasm of testis Overview: Metastatic testicular seminoma, good risk prognosis, status post BEP x4 ending June 2017. Now he presents with severe right mid paraspinal pain. Assessment assessment I reviewed the lab tests with the patient. Beta hCG, LDH and AFP are within the normal range. However I noticed that patient has an elevated ferritin level of 779, and saturation of 87% back in 2015 to 2016. There after no follow-up. I talked with the patient that I would like to repeat the test to confirm if there is any evidence of iron overload. I briefly touched base with him and his that the elevated iron results can be the result of cirrhosis or it also can cause liver damage. Plan: Iron panel, Ferritin today RTC in 6 months, CBC, CMP, LDH, AFP, BHCG, Iron penal, Ferritin (2) Alcoholic cirrhosis of liver Overview: Patient has alcoholic related cirrhosis the liver with splenomegaly, anemia, and thrombocytopenia. Patient said that he also underwent upper endoscopy and varices were seen and banded. Patient currently is being followed by Dr. Raza at [facility] Assessment: No black stool. but complains of abd cramps. Plan: Continue follow up with
[2020-08-14 13:45] VITALS: BP 140/77; PULSE 71; RESP 16; TEMP 36.7; O2SAT 97
[2020-08-14 16:36] LABS: HEMOLYSIS < 15 (0-50); Iron 47 ug/dL (49-181)
[2020-08-14 16:47] LABS: Percent Iron Saturation 20 % (20-50); Total Iron Binding Capacity 236 ug/dL (261-462); Transferrin 188 mg/dL (206-381)
[2020-08-14 17:03] LABS: Ferritin 168 ng/mL (18-464)
[2021-02-19 14:36] LABS: Add Manual Diff / Slide Review NO; Basophils Absolute Auto 0 /uL (0-100); Basophils Percent Auto 0.4 % (0-2); Eosinophils Absolute Auto 100 /uL (0-450); Eosinophils Percent Auto 1.1 % (2-4); Hematocrit 37.3 % (41-53); Hemoglobin 12.5 g/dL (13.5-17.5); Lymphocytes Absolute Auto 1600 /uL (1100-4500); Lymphocytes Percent Auto 33.6 % (25-40); Mean Corpuscular HGB Conc 33.6 % (30-36); Mean Corpuscular Hemoglobin 29.4 PG (26-34); Mean Corpuscular Volume 87.6 fL (80-100); Monocytes Absolute Auto 400 /uL (0-900); Monocytes Percent Auto 8.6 % (3-14); Neutrophils Absolute Auto 2700 /uL (1500-7000); Neutrophils Percent Auto 56.3 % (50-75); Platelet Count 103 X10^3/uL (150-400); Red Blood Cell Count 4.26 X10^6/uL (4.5-5.9); Red Cell Distribution Width 14.4 % (11.6-14.8); White Blood Cell Count 4.9 X10^3/uL (4.5-11.0)
[2021-02-19 14:46] LABS: Alanine Aminotransferase 13 IU/L (<50); Albumin 4.9 g/dL (3.5-5.0); Albumin Globulin Ratio 1.4 (1.0-2.8); Alkaline Phosphatase 80 U/L (38-126); Aspartate Aminotransferase 24 IU/L (17-59); BUN Creatinine Ratio 11.7 (6-22); Bilirubin Total 0.6 mg/dL (0.2-1.3); Blood Urea Nitrogen 11 mg/dL (9-20); Carbon Dioxide 30 mmol/L (22-32); Chloride 99 mmol/L (98-107); Estimated Glomerular Filt Rate > 60.0 mL/min (>60); Globulin 3.5 g/dL (1.7-4.1); Glucose 100 mg/dL (70-100); HEMOLYSIS < 15 (0-50); Lactate Dehydrogenase 423 U/L (313-618); Potassium 4.1 mmol/L (3.4-5.1); Sodium 139 mmol/L (137-145); Total Protein 8.4 g/dL (6.3-8.2)
[2021-02-19 15:03] LABS: HCG Quantitative /Beta subunit < 2.4 mIU/mL (-2.40)
[2021-02-19 15:21] LABS: Ferritin 116 ng/mL (18-464)
[2021-02-19 15:30] LABS: HEMOLYSIS < 15 (0-50); Iron 95 ug/dL (49-181)
[2021-02-19 15:41] LABS: Percent Iron Saturation 38 % (20-50); Total Iron Binding Capacity 250 ug/dL (261-462); Transferrin 187 mg/dL (206-381)
[2021-02-20 05:41] LABS: Alpha Fetoprotein 6.4 ng/mL (0.0-8.3)
--- NOTE | 2021-02-26 15:55 | ONC.PN ---
PN -Subjective Interval history: ID/CC: 60 year old male with metastatic testicular cancer here for scheduled follow up visit. 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 He initially presented with a large 7 cm left testicular mass and underwent orchiectomy in April 2016. It showed pure seminoma pT1. He did not receive adjuvant chemotherapy. About 10 months later, he developed back pain and CT scan on 03/10/2017 showed a large left para-spinal mass 4.3 x 4.1 cm. Biopsy on 03/25/2017 showed positive for metastatic seminoma. He received a course of BEPx4 cycles with which he had excessive toxicity and multiple hospitalization and rehab for complications.He needed dose reduction after cycle 1 and eventually cycle 4 was given incomplete, completed in June 2017. Thereafter patient has been on active surveillance with CT scan every [address] scan from August, December, and March of 2018 showed continued decrease of the retroperitoneal lymph nodes. Most recent CT scan was obtained on 07/06/2018 and it showed stable examination without specific evidence for active metastatic disease. Cirrhosis of the liver was again was noted. Due to significant weight loss, we decided to re-evaluate the possibility of recurrence or metastasis of his underlying history of seminoma. Patient underwent CT scan of the chest abdomen and pelvis on 09/16/2018. No evidence of recurrence or metastasis except evidence of cirrhosis and splenomegaly. Patient's tumor marker including AFP, LDH and beta HCG all within the normal range. Interim Events: Patient continues to complain occasional back pain. Sometimes the pain got so worse that he was thinking about going to the emergency room. Otherwise patient denies any weight changes. He denies any shortness of breath or chest pain. He is having some sixto umbilical discomfort at currently he has been followed by Dr. Raza for hepatic cirrhosis. Next follow-up visit has been scheduled for 03/2021. - Patient Self-Reported Symptoms SR Constitution: Fatigue/Malaise SR ears, nose, mouth, throat issues: Difficulty swallowing SR Cardiovascular issues: Shortness of breath with activity or lying flat SR Gastrointestinal issues: Poor or no appetite, Nausea, Vomiting, Constipation SR Musculoskeletal issues: Joint pain or swelling, Muscle weakness, Muscle pain or cramps, Back or neck pain, Difficulty walking SR Neuro issues: Difficulty balancing SR Endocrine issues: Cold intolerance - ROS All systems PM: reviewed and no additional remarkable complaints except as stated Home Medications and Allergies Home Medications Medication Instructions Recorded Confirmed Type lactulose 10 gram/15 mL oral 10 g PO DAILY 12/28/18 02/26/21 History solution pregabalin 100 mg capsule (Lyrica) 100 mg PO TID 05/17/19 02/26/21 History tizanidine 4 mg tablet 4 mg PO DAILY tab 08/20/19 02/26/21 History sulfasalazine 500 mg tablet 0.5 gram PO DAILY 12/06/19 02/26/21 History methocarbamol 500 mg tablet See Rx Instructions .ROUTE 01/04/20 02/26/21 Rx .COMPLEX #270 tab omeprazole magnesium 20 mg 40 mg PO DAILY tab 04/03/20 02/26/21 History tablet,delayed release (Prilosec OTC) adalimumab 40 mg/0.8 mL 40 mg SUBCUT Q2W 04/18/20 02/26/21 History subcutaneous syringe kit (Humira) efinaconazole 10 % topical 1 applic TOPICAL BEDTIME #4 ml 07/17/20 02/26/21 Rx solution with applicator (Jublia) ketoconazole 2 % topical cream 1 applic TOPICAL BID PRN #30 g 07/17/20 02/26/21 Rx levothyroxine 75 mcg tablet 75 mcg PO DAILY #90 tab 07/17/20 02/26/21 Rx oxycodone 10 mg tablet 10 mg PO QID PRN #120 tab 01/29/21 02/26/21 Rx Allergies Allergy/AdvReac Type Severity Reaction Status Date / Time No Known Drug Allergies Allergy Verified 01/31/21 13:07 Exam Vital signs: 02/26/21 18:05 Last Vital Signs Temp 98.4 F 02/26/21 15:59 Pulse 69 02/26/21 15:59 Resp 18 02/26/21 15:59 BP 143/80 H 02/26/21 15:59 Pulse Ox 97 02/26/21 15:59 Narrative: ECOG 1 Vitals above reviewed Constitutional: WDWN, well nourished, and well groomed. NAD. Pleasant and cooperative. HEENT: NCAT, EOMI, PERRLA. Anicteric sclera. Respiratory: No use of accessory muscles. Card: RRR, S1 and S2 normal, no MRG Abd: soft, mild epigastric pain, no hepatosplenomegaly Musculoskeletal: normal gait and station Skin: No rashes, lesions, or ulcers. No induration, or subcutaneous nodules. Neurological: CN II-XII grossly intact. No focal motor or sensory deficit. Psychiatric: Normal judgment and insight. AOx3. Normal memory (recent and remote). Normal mood and affect. Results - Labs Laboratory Last Values WBC 4.9 X10^3/uL (4.5-11.0) 02/19/21 14:24 RBC 4.26 X10^6/uL (4.5-5.9) L 02/19/21 14:24 Hgb 12.5 g/dL (13.5-17.5) L 02/19/21 14:24 Hct 37.3 % (41-53) L 02/19/21 14:24 MCV 87.6 fL (80-100) 02/19/21 14:24 MCH 29.4 PG (26-34) 02/19/21 14:24 MCHC 33.6 % (30-36) 02/19/21 14:24 RDW 14.4 % (11.6-14.8) 02/19/21 14:24 Plt Count 103 X10^3/uL (150-400) L 02/19/21 14:24 Neut % (Auto) 56.3 % (50-75) 02/19/21 14:24 Lymph % (Auto) 33.6 % (25-40) 02/19/21 14:24 [place] % (Auto) 8.6 % (3-14) 02/19/21 14:24 Eos % (Auto) 1.1 % (2-4) L 02/19/21 14:24 Baso % (Auto) 0.4 % (0-2) 02/19/21 14:24 Neut # (Auto) 2700 /uL (7167-0813) 02/19/21 14:24 Lymph # (Auto) 1600 /uL (8544-2177) 02/19/21 14:24 [place] # (Auto) 400 /uL (0-900) 02/19/21 14:24 Eos # (Auto) 100 /uL (0-450) 02/19/21 14:24 Baso # (Auto) 0 /uL (0-100) 02/19/21 14:24 Sodium 139 mmol/L (137-145) 02/19/21 14:24 Potassium 4.1 mmol/L (3.4-5.1) 02/19/21 14:24 Chloride 99 mmol/L (98-107) 02/19/21 14:24 Carbon Dioxide 30 mmol/L (22-32) 02/19/21 14:24 BUN 11 mg/dL (9-20) 02/19/21 14:24 Creatinine 0.94 mg/dL (0.66-1.25) 02/19/21 14:24 Estimated GFR > 60.0 mL/min (>60) 02/19/21 14:24 BUN/Creatinine Ratio 11.7 (6-22) 02/19/21 14:24 Glucose 100 mg/dL (70-100) 02/19/21 14:24 Calcium 10.0 mg/dL (8.4-10.2) 02/19/21 14:24 Iron 95 ug/dL (49-181) D 02/19/21 14:24 TIBC 250 ug/dL (261-462) L 02/19/21 14:24 % Saturation 38 % (20-50) 02/19/21 14:24 Transferrin 187 mg/dL (206-381) L 02/19/21 14:24 Ferritin 116 ng/mL (18-464) 02/19/21 14:24 Total Bilirubin 0.6 mg/dL (0.2-1.3) 02/19/21 14:24 AST 24 IU/L (17-59) 02/19/21 14:24 ALT 13 IU/L (<50) 02/19/21 14:24 Alkaline Phosphatase 80 U/L (38-126) 02/19/21 14:24 Lactate Dehydrogenase 423 U/L (313-618) 02/19/21 14:24 Total Protein 8.4 g/dL (6.3-8.2) H 02/19/21 14:24 Albumin 4.9 g/dL (3.5-5.0) 02/19/21 14:24 Globulin 3.5 g/dL (1.7-4.1) 02/19/21 14:24 Albumin/Globulin Ratio 1.4 (1.0-2.8) 02/19/21 14:24 Alpha Fetoprotein 6.4 ng/mL (0.0-8.3) 02/19/21 14:24 HCG, Quant < 2.4 mIU/mL (-2.40) 02/19/21 14:24 - Imaging Additional studies: Procedures Drainage of Peritoneal Cavity, Percutaneous Approach, Diagnostic (04/18/17) Transfusion of Nonautologous Platelets into Central Vein, Percutaneous Approach (04/18/17) Transfusion of Nonautologous Red Blood Cells into Central Vein, Percutaneous Approach (08/09/17) Transfusion of Nonautologous Red Blood Cells into Peripheral Vein, Percutaneous Approach (06/13/17) Assessment and Plan (1) Malignant neoplasm of testis Overview: Metastatic testicular seminoma, good risk prognosis, status post BEP x4 ending June 2017. Now he presents with severe right mid paraspinal pain. Assessment assessment I reviewed the lab results with the patient. They tumor markers including AFP, beta HCG and LDH are all within the normal range. I talked with the patient that I am recommending follow-up in 1 year. But if he notices anything different or worrisome, he should call us without any hesitation. Plan: RTC in 12 months, CBC, CMP, LDH, AFP, BHCG, Iron penal, Ferritin Call for any concerns or questions. (2) Alcoholic cirrhosis of liver Overview: Patient has alcoholic related cirrhosis the liver with splenomegaly, anemia, and thrombocytopenia. Patient said that he also underwent upper endoscopy and varices were seen and banded. Patient currently is being followed by Dr. Raza at [facility] Assessment: No black stool. but complains of abd cramps. Plan: Continue follow up with
[2021-02-26 15:59] VITALS: BP 143/80; PULSE 69; RESP 18; TEMP 36.9; O2SAT 97
[2022-02-18 12:48] LABS: Add Manual Diff / Slide Review NO; Basophils Absolute Auto 0 /uL (0-100); Basophils Percent Auto 0.3 % (0-2); Eosinophils Absolute Auto 100 /uL (0-450); Eosinophils Percent Auto 1.2 % (2-4); Hematocrit 37.2 % (41-53); Hemoglobin 12.4 g/dL (13.5-17.5); Lymphocytes Absolute Auto 1600 /uL (1100-4500); Lymphocytes Percent Auto 34.3 % (25-40); Mean Corpuscular HGB Conc 33.3 % (30-36); Mean Corpuscular Hemoglobin 29.1 PG (26-34); Mean Corpuscular Volume 87.3 fL (80-100); Monocytes Absolute Auto 500 /uL (0-900); Monocytes Percent Auto 10.3 % (3-14); Neutrophils Absolute Auto 2500 /uL (1500-7000); Neutrophils Percent Auto 53.9 % (50-75); Platelet Count 95 X10^3/uL (150-400); Red Blood Cell Count 4.26 X10^6/uL (4.5-5.9); Red Cell Distribution Width 14.9 % (11.6-14.8); White Blood Cell Count 4.7 X10^3/uL (4.5-11.0)
[2022-02-18 13:05] LABS: Alanine Aminotransferase 17 IU/L (<50); Albumin 4.7 g/dL (3.5-5.0); Albumin Globulin Ratio 1.3 (1.0-2.8); Alkaline Phosphatase 85 U/L (38-126); Aspartate Aminotransferase 24 IU/L (17-59); BUN Creatinine Ratio 10.1 (6-22); Bilirubin Total 0.5 mg/dL (0.2-1.3); Blood Urea Nitrogen 9 mg/dL (9-20); Calcium 9.6 mg/dL (8.4-10.2); Carbon Dioxide 24 mmol/L (22-32); Chloride 102 mmol/L (98-107); Estimated Glomerular Filt Rate > 60 mL/min (>60); Globulin 3.7 g/dL (1.7-4.1); Glucose 113 mg/dL (80-110); HEMOLYSIS < 15 (0-50); Lactate Dehydrogenase 368 U/L (313-618); Potassium 3.9 mmol/L (3.4-5.1); Sodium 139 mmol/L (137-145); Total Protein 8.4 g/dL (6.3-8.2)
[2022-02-18 13:23] LABS: HCG Quantitative /Beta subunit < 2.4 mIU/mL (<2.40)
[2022-02-19 08:53] LABS: Alpha Fetoprotein 6.1 ng/mL (0.0-8.4)
--- NOTE | 2022-02-25 14:04 | P.PNONC_ITS ---
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 Interval history: Patient continues to complain left mid back pain. He is using pain medications 3 times a day. Other than that, patient said that he he has better appetite and he has already gained weight. Pain denies any shortness of breath or chest pain. He denies any abdominal pain, diarrhea or constipation. Oncology HPI He initially presented with a large 7 cm left testicular mass and underwent orchiectomy in April 2016. It showed pure seminoma pT1. He did not receive a djuvant chemotherapy. About 10 months later, he developed back pain and CT scan on 03/10/2017 showed a large left para-spinal mass 4.3 x 4.1 cm. Biopsy on 03/25/2017 showed positive for metastatic seminoma. He received a course of BEPx4 cycles with which he had excessive toxicity and multiple hospitalization and rehab for complications. He needed dose reduction after cycle 1 and eventually cycle 4 was given incomplete, completed in June 2017. The patient has been on active surveillance with regular CT scan. - Patient Self-Reported Symptoms SR Constitution: Fatigue/Malaise SR ears, nose, mouth, throat issues: Ears ringing SR Cardiovascular issues: Shortness of breath with activity or lying flat SR Gastrointestinal issues: Poor or no appetite, Nausea, Vomiting, Constipation SR Musculoskeletal issues: Joint pain or swelling, Muscle pain or cramps, Back or neck pain, Cold hands or feet, Difficulty walking SR Neuro issues: Difficulty balancing SR Endocrine issues: Cold intolerance - ROS All Systems: reviewed and no additional remarkable complaints except as stated Home Medications and Allergies Home Medications Medication Instructions Recorded Confirmed Type lactulose 10 gram/15 mL oral 10 g PO DAILY 12/28/18 02/25/22 History solution sulfasalazine 500 mg tablet 0.5 gram PO DAILY 12/06/19 02/25/22 History omeprazole magnesium 20 mg 40 mg PO DAILY 04/03/20 02/25/22 History tablet,delayed release (Prilosec OTC) adalimumab 40 mg/0.8 mL 40 mg SUBCUT Q2W 04/18/20 02/25/22 History subcutaneous syringe kit (Humira) efinaconazole 10 % topical 1 applic topical BEDTIME #4 mL 07/17/20 02/25/22 Rx solution with applicator (Jublia) ketoconazole 2 % topical cream 1 applic topical BID PRN Tinea #30 07/17/20 02/25/22 Rx grams tizanidine 4 mg tablet 4 mg PO TID #90 tabs 04/10/21 02/25/22 Rx levothyroxine 75 mcg tablet See Rx Instructions .Route 12/03/21 02/25/22 Rx (Euthyrox) .COMPLEX #90 tabs lisinopril 20 mg tablet 20 mg PO DAILY #30 tabs 12/21/21 12/21/21 Rx methocarbamol 500 mg tablet 500 mg PO TID PRN muscle cramps 12/21/21 02/25/22 Rx #90 tabs pregabalin 100 mg capsule 100 mg PO QID #120 caps 02/15/22 02/25/22 Rx oxycodone 10 mg tablet 10 mg PO QID PRN pain #120 tabs 02/18/22 02/25/22 Rx Allergies Allergy/AdvReac Type Severity Reaction Status Date / Time No Known Drug Allergies Allergy Verified 12/21/21 14:44 Exam Vital signs: 02/25/22 14:43 Last Vital Signs Temp 97.5 F L 02/25/22 14:17 Pulse 56 L 02/25/22 14:17 Resp 18 02/25/22 14:17 BP 148/78 H 02/25/22 14:17 Pulse Ox 97 02/25/22 14:17 Narrative: ECOG 1 Vitals above reviewed Constitutional: WDWN, well nourished, and well groomed. NAD. Pleasant and cooperative. HEENT: NCAT, EOMI, PERRLA. Anicteric sclera. Respiratory: No use of accessory muscles. Card: RRR, S1 and S2 normal, no MRG Abd: soft, mild epigastric pain, no hepatosplenomegaly Musculoskeletal: normal gait and station Skin: No rashes, lesions, or ulcers. No induration, or subcutaneous nodules. Neurological: AOx3, CN II-XII grossly intact. No focal motor or sensory deficit. Psychiatric: Normal mood and affect. Results - Labs Laboratory Last Values WBC 4.7 X10^3/uL (4.5-11.0) 02/18/22 12:27 RBC 4.26 X10^6/uL (4.5-5.9) L 02/18/22 12: Hgb 12.4 g/dL (13.5-17.5) L 02/18/22 12: Hct 37.2 % (41-53) L 02/18/22 12: MCV 87.3 fL (80-100) 02/18/22 12: MCH 29.1 PG (26-34) 02/18/22 12: MCHC 33.3 % (30-36) 02/18/22 12: RDW 14.9 % (11.6-14.8) H 02/18/22 12: Plt Count 95 X10^3/uL (150-400) L 02/18/22 12: Neut % (Auto) 53.9 % (50-75) 02/18/22 12: Lymph % (Auto) 34.3 % (25-40) 02/18/22 12: [place] % (Auto) 10.3 % (3-14) 02/18/22 12: Eos % (Auto) 1.2 % (2-4) L 02/18/22 12: Baso % (Auto) 0.3 % (0-2) 02/18/22 12: Neut # (Auto) 2500 /uL (6058-7304) 02/18/22 12: Lymph # (Auto) 1600 /uL (7191-3517) 02/18/22 12: [place] # (Auto) 500 /uL (0-900) 02/18/22 12: Eos # (Auto) 100 /uL (0-450) 02/18/22 12: Baso # (Auto) 0 /uL (0-100) 02/18/22 12:27 Sodium 139 mmol/L (137-145) 02/18/22 12: Potassium 3.9 mmol/L (3.4-5.1) 02/18/22 12: Chloride 102 mmol/L (98-107) 02/18/22 12: Carbon Dioxide 24 mmol/L (22-32) 02/18/22 12: BUN 9 mg/dL (9-20) 02/18/22 12: Creatinine 0.89 mg/dL (0.66-1.25) 02/18/22 12:27 Estimated GFR > 60 mL/min (>60) 02/18/22 12:27 BUN/Creatinine Ratio 10.1 (6-22) 02/18/22 12:27 Glucose 113 mg/dL (80-110) H 02/18/22 12:27 Calcium 9.6 mg/dL (8.4-10.2) 02/18/22 12:27 Iron 95 ug/dL (49-181) D 02/19/21 14:24 TIBC 250 ug/dL (261-462) L 02/19/21 14:24 % Saturation 38 % (20-50) 02/19/21 14:24 Transferrin 187 mg/dL (206-381) L 02/19/21 14:24 Ferritin 116 ng/mL (18-464) 02/19/21 14:24 Total Bilirubin 0.5 mg/dL (0.2-1.3) 02/18/22 12:27 AST 24 IU/L (17-59) 02/18/22 12:27 ALT 17 IU/L (<50) 02/18/22 12:27 Alkaline Phosphatase 85 U/L (38-126) 02/18/22 12:27 Lactate Dehydrogenase 368 U/L (313-618) 02/18/22 12:27 Total Protein 8.4 g/dL (6.3-8.2) H 02/18/22 12:27 Albumin 4.7 g/dL (3.5-5.0) 02/18/22 12:27 Globulin 3.7 g/dL (1.7-4.1) 02/18/22 12:27 Albumin/Globulin Ratio 1.3 (1.0-2.8) 02/18/22 12:27 Alpha Fetoprotein 6.1 ng/mL (0.0-8.4) 02/18/22 12:27 HCG, Quant < 2.4 mIU/mL (<2.40) 02/18/22 12:27 - Imaging Additional studies: Procedures Drainage of Peritoneal Cavity, Percutaneous Approach, Diagnostic (04/18/17) Transfusion of Nonautologous Platelets into Central Vein, Percutaneous Approach (04/18/17) Transfusion of Nonautologous Red Blood Cells into Central Vein, Percutaneous Approach (08/09/17) Transfusion of Nonautologous Red Blood Cells into Peripheral Vein, Percutaneous Approach (06/13/17) Assessment and Plan (1) Elevated total protein I reviewed the lab results with the patient and patient's . I explained to them that the serum total protein levels have increased with some fluctuation. Patient has thrombocytopenia which we thought is due to concurrent cirrhosis. However plasma cell disorder can also be associated with thrombocytopenia. I talked with the patient that I will obtain blood samples to evaluate serum protein electrophoresis with reflex to protein immunofixation. I talked with them that I will follow-up on the results. If the results are abnormal, we will call him back for further evaluation including possible bone marrow aspiration and biopsy. (2) Malignant neoplasm of testis Suhail is a 61 year old male with history of metastatic testicular seminoma, good risk prognosis, status post BEP x4 ending June 2017. Now he presents with severe right mid paraspinal pain. Assessment assessment I reviewed the lab results with the patient. They tumor markers including AFP, beta HCG and LDH are all within the normal range. I talked with the patient that I am recommending follow-up in 1 year. But if he notices anything diffe rent or worrisome, he should call us without any hesitation. Plan: RTC in 12 months, CBC, CMP, LDH, AFP, BHCG Call for any concerns or questions. (3) Alcoholic cirrhosis of liver Patient has alcoholic related cirrhosis of the liver with splenomegaly, anemia, and thrombocytopenia. Patient said that he also underwent upper endoscopy and varices were seen and banded. Patient currently is being followed by Dr. Raza at [facility] Plan: Continue follow up with
[2022-02-25 14:17] VITALS: BP 148/78; PULSE 56; RESP 18; TEMP 36.4; O2SAT 97
[2022-02-28 15:08] LABS: Albumin 3.9 g/dL (2.9-4.4); Alpha 1 Globulin 0.2 g/dL (0.0-0.4); Alpha 2 Globulin 0.7 g/dL (0.4-1.0); Beta 1 Globulin 1.3 g/dL (0.7-1.3); Gamma Globulin 1.3 g/dL (0.4-1.8); Protein, Total 7.4 g/dL (6.0-8.5)
--- NOTE | 2023-01-30 09:51 | ONC.SCHED ---
lvm for patient to call re: NEVIN
--- NOTE | 2023-02-04 14:44 | ONC.SCHED ---
Left detailed vm for patient to go to main lab and have his annual labs drawn and let us know when that has been completed so we may arrange a nurse eval of the results and NEVIN discussion
[2023-02-17 15:00] LABS: Add Manual Diff / Slide Review NO; Basophils Absolute Auto 0 /uL (0-100); Basophils Percent Auto 0.6 % (0-2); Eosinophils Absolute Auto 100 /uL (0-450); Eosinophils Percent Auto 1.5 % (2-4); Hematocrit 35.6 % (41-53); Lymphocytes Absolute Auto 1700 /uL (1100-4500); Lymphocytes Percent Auto 35.5 % (25-40); Mean Corpuscular HGB Conc 33.8 % (30-36); Mean Corpuscular Hemoglobin 30.1 PG (26-34); Mean Corpuscular Volume 89.3 fL (80-100); Monocytes Absolute Auto 500 /uL (0-900); Monocytes Percent Auto 10.5 % (3-14); Neutrophils Absolute Auto 2500 /uL (1500-7000); Neutrophils Percent Auto 51.9 % (50-75); Platelet Count 101 X10^3/uL (150-400); Red Blood Cell Count 3.98 X10^6/uL (4.5-5.9); Red Cell Distribution Width 14.3 % (11.6-14.8); White Blood Cell Count 4.9 X10^3/uL (4.5-11.0)
[2023-02-17 15:23] LABS: Alanine Aminotransferase 16 IU/L (<50); Albumin 4.5 g/dL (3.5-5.0); Albumin Globulin Ratio 1.4 (1.0-2.8); Alkaline Phosphatase 49 U/L (38-126); Aspartate Aminotransferase 33 IU/L (17-59); BUN Creatinine Ratio 11.4 (6-22); Bilirubin Total 0.8 mg/dL (0.2-1.3); Blood Urea Nitrogen 8 mg/dL (9-20); Calcium 9.4 mg/dL (8.4-10.2); Carbon Dioxide 30 mmol/L (22-32); Chloride 96 mmol/L (98-107); Estimated Glomerular Filt Rate > 60 mL/min (>60); Globulin 3.3 g/dL (1.7-4.1); Glucose 102 mg/dL (80-110); Lactate Dehydrogenase 258 U/L (120-246); Potassium 4.1 mmol/L (3.4-5.1); Sodium 132 mmol/L (137-145); Total Protein 7.8 g/dL (6.3-8.2)
[2023-02-17 15:25] LABS: HEMOLYSIS 85 (0-50)
[2023-02-17 15:40] LABS: HCG Quantitative /Beta subunit < 2.4 mIU/mL (<2.40)
[2023-02-18 07:39] LABS: Alpha Fetoprotein 5.4 ng/mL (0.0-8.4)
[2023-02-19 13:56] LABS: Albumin 3.8 g/dL (2.9-4.4); Alpha 1 Globulin 0.2 g/dL (0.0-0.4); Alpha 2 Globulin 0.7 g/dL (0.4-1.0); Beta 1 Globulin 1.2 g/dL (0.7-1.3); Gamma Globulin 1.2 g/dL (0.4-1.8); Protein, Total 7.1 g/dL (6.0-8.5)
--- NOTE | 2023-02-24 13:29 | PC.NURSE ---
LABS/RN EVAL: PER VOICEMAIL PATIENT STATED THAT A DETAILED MESSAGE COULD BE LEFT FOR HIM. THIS RN DID LEAVE A MESSAGE REGARDING THE LABS BEING STABLE BUT TO STILL LET US KNOW HIS NEVIN PREFERENCE SO THAT WE CAN HAVE RECORDS TRANSFERRED. THE OPTIONS OF [facility] OR [facility] WERE EXPLAINED ON THE VOICEMAIL.
--- NOTE | 2023-02-25 13:15 | ONC.SCHED ---
NEVIN: [facility]; Dr. Landis This pt is transferring to [facility] with Dr. Landis, referral has been entered and email has been sent to MR for processing.
--- NOTE | 2023-02-27 13:51 | PC.NURSE ---
NEVIN: PATIENT CAME IN ON FRIDAY 02/23 AND ASKED TO SPEAK WITH THE NURSE RE NEVIN; AFTER DISCUSSION HE DECIDED FOR [facility] WITH DR MONTGOMERY OR JE[facility]. REFERRAL WAS ENTERED AND SCHEDULERS INFORMED.
== END ==
PROVIDERS: Internal Medicine Hematology & Oncology; PCP Family Medicine; Visit Provider Internal Medicine Hematology & Oncology
DX: Z08 Encounter for follow-up examination after completed treatment for malignant neoplasm (principal); Z85.47 Personal history of malignant neoplasm of testis
CPT/HCPCS: 36415; 71260; 74177; 80053; 82105; 82728; 83540; 83550; 83615; 84155; 84165; 84702; 85025; 87255; 99214; 99215; Q9967

== ENCOUNTER → 2023-03-21 13:20 | Outpatient (CLI) | payer OTHER, MEDICAID, SELFPAY ==
[2023-03-21 15:56] LABS: Free T4, Direct Thyroxine 1.09 ng/dL (0.78-2.19)
[2023-03-21 16:10] LABS: Thyroid Stimulating Hormone 4.21 uIU/mL (0.47-4.68)
== END ==
PROVIDERS: PCP Family Medicine; Referring Provider Family Medicine; Visit Provider Family Medicine
DX: E03.9 Hypothyroidism, unspecified (principal)
CPT/HCPCS: 36415; 84439; 84443

== ENCOUNTER → 2023-09-03 08:58 | Outpatient (CLI) | payer OTHER, MEDICAID, SELFPAY ==
--- NOTE | 2023-09-03 08:59 | DI.ECHO.S_ITS ---
[facility]+ [facility] : : [address] : [place] : : [id number] : : Phone: [phone] Echocardiogram Report + + :Name: CLARENCE ARRIAGA Study Date: 09/03/2023 Height: 69.5 in: :[facility] ReadingLocation: Weight: 230 lb : : Gender: Male BSA: 2.2 m2 : :: 1960 Age: 63 yrs BP: 188/95 mmHg: :Reason For Study: HEART MURMUR : :Ordering Physician: BRITTON, : :RANDI Performed By: Paula Villagran : :Referring: RANDI JARQUIN : + + Interpretation Summary The ejection fraction is estimated to be 55-60%. Diastolic parameters suggest probable normal left ventricular diastolic function and normal filling pressures. The right ventricle is grossly normal size. The right ventricular systolic function is normal. No significant valvular abnormalities. Pulmonary artery pressures cannot be estimated because of the lack of a measurable TR jet velocity but the IVC suggests a CVP of around 3 mmHg. The ascending aorta is mildly enlarged, 4.1 cm. Procedure: A two-dimensional transthoracic echocardiogram with color flow and Doppler was performed. The study quality was technically adequate. There is no prior echocardiogram noted for this patient. The patient was in sinus rhythm with heart rates between 59-67 bpm during the exam. Left Ventricle: The left ventricle is normal in size and wall thickness. The ejection fraction is estimated to be 55-60%. Diastolic parameters suggest probable normal left ventricular diastolic function and normal filling pressures. Right Ventricle: The right ventricle is grossly normal size. The right ventricular systolic function is normal. Atria: The left atrium is borderline dilated. Right atrial size is normal. There is no Doppler evidence for an interatrial shunt. Mitral Valve: The mitral valve leaflets are slightly calcified. There is mild mitral annular calcification. There is no mitral regurgitation noted. Aortic Valve: The aortic valve is trileaflet. The aortic valve is mildly calcified. There is no aortic valve stenosis. No aortic regurgitation is present. Tricuspid Valve: The tricuspid valve is normal in structure and function. There is trace tricuspid regurgitation. Pulmonary artery pressures cannot be estimated because of the lack of a measurable TR jet velocity but the IVC suggests a CVP of around 3 mmHg. Pulmonic Valve: The pulmonic valve leaflets are thin and pliable; valve motion is normal. There is no pulmonic valvular regurgitation. Great Vessels: The aortic root is normal size. The ascending aorta is mildly enlarged. The IVC is of normal diameter and collapses greater than 50% with a sniff. This suggests a low right atrial pressure of 3 mm Hg. Pericardium/ Pleura There is no pericardial effusion. There is no pleural effusion. MMode/2D Measurements & Calculations LVIDd: 5.5 cm LVOT diam: 2.4 cm LVIDs: 3.5 cm Ao root diam: 3.7 cm FS: 35.6 % asc Aorta Diam: 4.1 cm IVSd: 0.81 cm LVPWd: 0.99 cm LV galvez. diameter/BSA (cm/m^2): 2.5 LV sys. diameter/BSA (cm/m^2): 1.6 LA A2 area: 24.7 cm2 RA long axis: 5.3 cm LA A4 area: 18.1 cm2 RA area: 19.9 cm2 LA length (vol): 5.1 cm RA vol: 63.5 ml LA vol: 73.9 ml RA : 28.8 ml/m2 LA vol index: 33.5 ml/m2 IVC diam: 1.2 cm RVD1 (basal): 3.7 cm TAPSE: 2.0 cm Doppler Measurements & Calculations Ao V2 max: 150.6 cm/sec LVOT Max Cornel: 88.5 cm/sec Ao V2 mean: 107.9 cm/sec LV V1 max P.1 mmHg Ao max P.1 mmHg LV V1 VTI: 21.0 cm Ao mean P.1 mmHg EMMANUEL(I,D): 2.9 cm2 Ao V2 VTI: 33.6 cm EMMANUEL(V,D): 2.7 cm2 sev ratio: 0.62 EMMANUEL indexed to BSA (cm^2/m^2): 1.3 MV E max cornel: 67.4 cm/sec TR max cornel: 216.1 cm/sec MV A max cornel: 75.4 cm/sec TR max P.7 mmHg MV E/A: 0.89 PA V2 max: 92.5 cm/sec Med Peak E' Cornel: 7.2 cm/sec PA V2 mean: 68.9 cm/sec E/E' med: 9.3 PA mean P.0 mmHg Lat Peak E' Cornel: 12.0 cm/sec PA pr(Accel): 41.3 mmHg E/E' lat: 5.6 E/e' average: 7.5 MV dec time: 0.29 sec SVLVOT): 97.1 ml Reading Physician:01:30 PM
== END ==
LOC: ECHO 08:59
PROVIDERS: PCP Family Medicine; Referring Provider Family Medicine; Visit Provider Family Medicine
DX: I77.89 Other specified disorders of arteries and arterioles (principal); R01.1 Cardiac murmur, unspecified; I34.81 Nonrheumatic mitral (valve) annulus calcification; I10 Essential (primary) hypertension
CPT/HCPCS: 93306

== ENCOUNTER → 2024-02-23 14:33 | Outpatient (CLI) | payer OTHER, MEDICAID, SELFPAY ==
[2024-02-23 16:26] LABS: Add Manual Diff / Slide Review NO; Basophils Absolute Auto 0 /uL (0-100); Eosinophils Absolute Auto 100 /uL (0-450); Eosinophils Percent Auto 1.5 % (2-4); Hematocrit 35.6 % (41-53); Lymphocytes Absolute Auto 1400 /uL (1100-4500); Lymphocytes Percent Auto 30.6 % (25-40); Mean Corpuscular HGB Conc 33.6 % (30-36); Mean Corpuscular Hemoglobin 29.8 PG (26-34); Mean Corpuscular Volume 88.7 fL (80-100); Monocytes Absolute Auto 500 /uL (0-900); Monocytes Percent Auto 12.2 % (3-14); Neutrophils Absolute Auto 2500 /uL (1500-7000); Neutrophils Percent Auto 54.7 % (50-75); Platelet Count 108 X10^3/uL (150-400); Red Blood Cell Count 4.01 X10^6/uL (4.5-5.9); Red Cell Distribution Width 14.6 % (11.6-14.8); White Blood Cell Count 4.5 X10^3/uL (4.5-11.0)
[2024-02-23 17:02] LABS: Alanine Aminotransferase 13 IU/L (<50); Albumin 4.3 g/dL (3.5-5.0); Albumin Globulin Ratio 1.3 (1.0-2.8); Alkaline Phosphatase 69 U/L (38-126); Aspartate Aminotransferase 23 IU/L (17-59); BUN Creatinine Ratio 8.8 (6-22); Bilirubin Total 0.5 mg/dL (0.2-1.3); Blood Urea Nitrogen 7 mg/dL (9-20); Calcium 9.3 mg/dL (8.4-10.2); Carbon Dioxide 31 mmol/L (22-32); Chloride 96 mmol/L (98-107); Estimated Glomerular Filt Rate > 60 mL/min (>60); Globulin 3.2 g/dL (1.7-4.1); Glucose 120 mg/dL (80-110); HEMOLYSIS < 15 (0-50); Potassium 4.1 mmol/L (3.4-5.1); Sodium 133 mmol/L (137-145); Total Protein 7.5 g/dL (6.3-8.2)
[2024-02-23 17:28] LABS: Free T4, Direct Thyroxine 1.06 ng/dL (0.78-2.19)
[2024-02-23 17:42] LABS: Thyroid Stimulating Hormone 2.77 uIU/mL (0.47-4.68)
== END ==
PROVIDERS: PCP Family Medicine; Referring Provider Family Medicine; Visit Provider Family Medicine
DX: I10 Essential (primary) hypertension (principal); E03.9 Hypothyroidism, unspecified; L40.50 Arthropathic psoriasis, unspecified; H90.0 Conductive hearing loss, bilateral; M51.24 Other intervertebral disc displacement, thoracic region
CPT/HCPCS: 36415; 80053; 84439; 84443; 85025

== ENCOUNTER → 2024-06-28 15:40 | Outpatient (CLI) | payer OTHER, SELFPAY ==
--- NOTE | 2024-06-28 15:44 | DI.ECHO.S_ITS ---
[place] +---------+ Hospital : : [address] : [address] [address] : : [id number] : : Phone: [phone] Echocardiogram Report + + :Name: CLARENCE ARRIAGA Study Date: 06/28/2024 Height: 70 in : :[facility] ReadingLocation: Weight: 226 lb: : Gender: Male BSA: 2.2 m2 : :: 1960 Age: 63 yrs : :Reason For Study: HEART MURMUR : :Ordering Physician: BRITTON, : :RANDI Performed By: Keron Renee : :Referring: RANDI JARQUIN : + + Interpretation Summary Mild concentric left ventricular hypertrophy with ejection fraction 55-60%. The left atrium is moderately dilated. There is no hemodynamically significant valvular aortic stenosis. Mild mitral annular calcification. The ascending aorta is mildly enlarged. Comparison is made with the echocardiogram of 09/03/2023, there is progression of aortic valve calcification. Procedure: A two-dimensional transthoracic echocardiogram with color flow and Doppler was performed. The study quality was technically good. Comparison is made with the echocardiogram of 09/03/2023. The patient was in normal sinus rhythm during the exam. Left Ventricle: The left ventricle is normal in size. There is mild concentric left ventricular hypertrophy. There is no ventricular septal defect visualized. The ejection fraction is estimated to be 55-60%. There are no focal wall motion abnormalities. Diastolic parameters suggest probable normal left ventricular diastolic function and normal filling pressures. Right Ventricle: The right ventricle grossly appears normal in size with probable normal systolic function. Atria: The left atrium is moderately dilated. Right atrial size is normal. There is no Doppler evidence for an atrial septal defect. Mitral Valve: The mitral valve leaflets are mildly calcified. There is mild mitral annular calcification. There is trace mitral regurgitation. Aortic Valve: The aortic valve is trileaflet. The aortic valve is moderately calcified. There is no hemodynamically significant valvular aortic stenosis. No aortic regurgitation is present. Tricuspid Valve: The tricuspid valve leaflets are thin and pliable. There is mild tricuspid regurgitation. The right ventricular systolic pressure is estimated to be at least 33 mmHg based on an estimated right atrial pressure of 3 mm Hg. Pulmonic Valve: The pulmonic valve is not well visualized. There is no pulmonic valvular regurgitation. Great Vessels: The aortic root is normal size. The ascending aorta is mildly enlarged. The pulmonary artery is normal size. The IVC is of normal diameter and collapses greater than 50% with a sniff. This suggests a low right atrial pressure of 3 mm Hg. Pericardium/ Pleura There is no pericardial effusion. There is no pleural effusion. MMode/2D Measurements & Calculations LVIDd: 4.7 cm LVOT diam: 2.4 cm LVIDs: 3.2 cm Ao root diam: 3.0 cm FS: 31.2 % asc Aorta Diam: 3.8 cm EPSS: 1.4 cm IVSd: 1.2 cm LVPWd: 1.1 cm LV galvez. diameter/BSA (cm/m^2): 2.1 LV sys. diameter/BSA (cm/m^2): 1.5 LA A2 area: 27.2 cm2 RA long axis: 5.1 cm LA A4 area: 32.1 cm2 RA area: 18.0 cm2 LA length (vol): 6.8 cm RA vol: 53.9 ml LA vol: 109.9 ml RA : 24.5 ml/m2 LA vol index: 50.0 ml/m2 TAPSE: 2.6 cm Doppler Measurements & Calculations Ao V2 max: 190.8 cm/sec LVOT Max Cornel: 94.1 cm/sec Ao V2 mean: 131.7 cm/sec LV V1 max P.5 mmHg Ao max P.6 mmHg LV V1 VTI: 24.5 cm Ao mean P.7 mmHg EMMANUEL(I,D): 2.3 cm2 Ao V2 VTI: 48.6 cm EMMANUEL(V,D): 2.3 cm2 sev ratio: 0.50 EMMANUEL indexed to BSA (cm^2/m^2): 1.0 MV E max cornel: 75.4 cm/sec TR max cornel: 272.2 cm/sec MV A max cornel: 70.9 cm/sec TR max P.6 mmHg MV E/A: 1.1 PA V2 max: 63.4 cm/sec Med Peak E' Cornel: 6.1 cm/sec PA V2 mean: 42.5 cm/sec E/E' med: 12.4 PA mean P.84 mmHg Lat Peak E' Cornel: 9.7 cm/sec PA pr(Accel): -16.9 mmHg E/E' lat: 7.8 E/e' average: 10.1 MV dec time: 0.22 sec SV(LVOT): 111.9 ml Electronically signed by: Rowena Bryant on Reading Physician:06/28/2024 10:22 PM
== END ==
PROVIDERS: PCP Family Medicine; Referring Provider Family Medicine; Visit Provider Family Medicine
DX: I08.1 Rheumatic disorders of both mitral and tricuspid valves (principal); I77.810 Thoracic aortic ectasia; R01.1 Cardiac murmur, unspecified
CPT/HCPCS: 93306

== ENCOUNTER → 2024-08-20 10:41 | Outpatient (CLI) | payer OTHER, SELFPAY ==
[2024-08-20 12:30] LABS: Add Manual Diff / Slide Review NO; Basophils Absolute Auto 0 /uL (0-100); Basophils Percent Auto 0.2 % (0-2); Eosinophils Absolute Auto 0 /uL (0-450); Eosinophils Percent Auto 0.8 % (2-4); Hematocrit 35.7 % (41-53); Hemoglobin 12.3 g/dL (13.5-17.5); Lymphocytes Absolute Auto 1400 /uL (1100-4500); Lymphocytes Percent Auto 23.8 % (25-40); Mean Corpuscular HGB Conc 34.3 % (30-36); Mean Corpuscular Hemoglobin 30.3 PG (26-34); Mean Corpuscular Volume 88.2 fL (80-100); Monocytes Absolute Auto 600 /uL (0-900); Monocytes Percent Auto 10.7 % (3-14); Neutrophils Absolute Auto 3700 /uL (1500-7000); Neutrophils Percent Auto 64.5 % (50-75); Platelet Count 116 X10^3/uL (150-400); Red Blood Cell Count 4.05 X10^6/uL (4.5-5.9); Red Cell Distribution Width 13.9 % (11.6-14.8); White Blood Cell Count 5.8 X10^3/uL (4.5-11.0)
[2024-08-20 12:58] LABS: Alanine Aminotransferase 17 IU/L (<50); Albumin 4.7 g/dL (3.5-5.0); Albumin Globulin Ratio 1.4 (1.0-2.8); Alkaline Phosphatase 71 U/L (38-126); Aspartate Aminotransferase 27 IU/L (17-59); BUN Creatinine Ratio 8.6 (6-22); Bilirubin Total 0.7 mg/dL (0.2-1.3); Blood Urea Nitrogen 8 mg/dL (9-20); Calcium 9.6 mg/dL (8.4-10.2); Carbon Dioxide 27 mmol/L (22-32); Chloride 100 mmol/L (98-107); Cholesterol 225 mg/dL (140-199); Estimated Glomerular Filt Rate > 60 mL/min (>60); Globulin 3.3 g/dL (1.7-4.1); Glucose 97 mg/dL (70-99); HDL Cholesterol 45 mg/dL (40-60); HEMOLYSIS < 15 (0-50); LDL Cholesterol Calculated 155 mg/dL (<100); Potassium 3.9 mmol/L (3.4-5.1); Sodium 138 mmol/L (137-145); Triglycerides 126 mg/dL (35-150)
[2024-08-20 13:13] LABS: Free T4, Direct Thyroxine 1.06 ng/dL (0.78-2.19)
[2024-08-20 13:26] LABS: Prostate Specific Antigen 0.525 ng/mL (0.10-4.00); Thyroid Stimulating Hormone 1.98 uIU/mL (0.47-4.68)
[2024-08-20 13:46] LABS: Vitamin B12 678 pg/mL (239-931)
== END ==
PROVIDERS: PCP Family Medicine; Referring Provider Family Medicine; Visit Provider Family Medicine
DX: I10 Essential (primary) hypertension (principal); E03.9 Hypothyroidism, unspecified; R79.89 Other specified abnormal findings of blood chemistry; C62.90 Malignant neoplasm of unspecified testis, unspecified whether descended or undescended; K21.9 Gastro-esophageal reflux disease without esophagitis
CPT/HCPCS: 36415; 80053; 80061; 82607; 84153; 84402; 84403; 84439; 84443; 85025